=== PATIENT | female | born 1950 | race Caucasian/White ===

== ENCOUNTER 2016-07-18 17:35 | Emergency (ER) | payer MEDICARE, OTHER ==
[2013-09-22 12:49] VITALS: BMI 36.2
[~2016-07-18 17:35] MED LIST: ELAVIL10 MG; FLEXERIL10 MG PO; FOSAMAX 70 MG T70 MG PO; HCTZ25 MG; MOBIC7.5 MG; MOBIC7.5 MG PO; NEURONTIN 300300 MG; PRILOSEC20 MG PO; ROBAXIN500 MG; SYNTHROID75 MCG; TOPROL XL100 MG PO
[2016-07-18 19:21] LABS: BASOPHILS 0.2 % (0.0-2.0); EOSINOPHILS 0.7 % (0-7); HEMOGLOBIN 12.5 g/dL (12-16); IMMATURE GRANULOCYTES 0.2 % (0-5); LYMPHOCYTES 24.6 % (15-50); MCH 30.9 pg (26.0-34.0); MCHC 33.8 g/dL (31.0-37.0); MCV 91.6 fL (80.0-100.0); MEAN PLATELET VOLUME 10.4 fL (7.4-10.4); MONOCYTES 7.6 % (2-11); NEUTROPHILS 66.7 % (40-80); PLATELET COUNT 188 10x3/uL (130-400); RBC 4.04 10x6/uL (4.00-5.40); RDW 13.9 % (11.5-14.5); WBC 5.4 10x3/uL (4.8-10.8)
[2016-07-18 19:41] LABS: ALBUMIN 4.1 g/dL (3.4-5.0); ALKALINE PHOSPHATASE 59 U/L (46-116); ALT (SGPT) 83 U/L (10-68); BILIRUBIN - TOTAL 0.25 mg/dL (0.2-1.3); CALC OSMOLALITY 269 mosm/kg (275-300); CALCIUM 7.7 mg/dL (8.5-10.1); CARBON DIOXIDE 27.6 mmol/L (21.0-32.0); CHLORIDE - SERUM 99 mmol/L (98-107); CREATININE - SERUM 0.8 mg/dL (0.6-1.3); GLUCOSE 87 mg/dL (74-106); MAGNESIUM - SERUM 1.9 mg/dL (1.8-2.4); POTASSIUM - SERUM 3.7 mmol/L (3.5-5.1); PROTEIN - SERUM 7.3 g/dL (6.4-8.2); SODIUM 136 mmol/L (136-145); UREA NITROGEN 10 mg/dL (7-18); eGFR NON AFRICAN AMERICAN 76 mL/min (90-120)
[2016-07-18 20:17] LABS: UDS - AMPHET NEGATIVE QUAL (NEGATIVE); UDS - BARB NEGATIVE QUAL (NEGATIVE); UDS - BENZO NEGATIVE QUAL (NEGATIVE); UDS - COCAINE NEGATIVE QUAL (NEGATIVE); UDS - METH NEGATIVE QUAL (NEGATIVE); UDS - OPIATE NEGATIVE QUAL (NEGATIVE); UDS - PCP NEGATIVE QUAL (NEGATIVE); UDS - THC NEGATIVE QUAL (NEGATIVE)
== END 2016-07-18 20:57 | disposition home or self-care (01) ==
LOC: D.ER 17:35
PROVIDERS: Emergency Medicine
DX: F10.129 Alcohol abuse with intoxication, unspecified (principal); F41.9 Anxiety disorder, unspecified; F17.200 Nicotine dependence, unspecified, uncomplicated

== ENCOUNTER 2016-08-11 14:47 | Emergency (ER) | payer MEDICARE, OTHER ==
[2013-09-22 12:49] VITALS: BMI 36.2
== END 2016-08-11 17:01 | disposition home or self-care (01) ==
LOC: D.ER 14:47
DX: S61.012A Laceration without foreign body of left thumb without damage to nail, initial encounter (principal); W25.XXXA Contact with sharp glass, initial encounter; Y93.89 Activity, other specified; Y92.019 Unspecified place in single-family (private) house as the place of occurrence of the external cause; I10 Essential (primary) hypertension; E03.9 Hypothyroidism, unspecified

== ENCOUNTER 2016-09-17 19:23 | Emergency (ER) | payer MEDICARE, OTHER ==
[2013-09-22 12:49] VITALS: BMI 36.2
[2016-09-17 20:06] LABS: BASOPHILS 0.2 % (0.0-2.0); EOSINOPHILS 1.1 % (0-7); HEMATOCRIT 40.4 % (36.0-48.0); HEMOGLOBIN 13.3 g/dL (12-16); IMMATURE GRANULOCYTES 0.3 % (0-5); LYMPHOCYTES 22.1 % (15-50); MCH 30.8 pg (26.0-34.0); MCHC 32.9 g/dL (31.0-37.0); MCV 93.5 fL (80.0-100.0); MEAN PLATELET VOLUME 10.3 fL (7.4-10.4); MONOCYTES 4.3 % (2-11); PLATELET COUNT 201 10x3/uL (130-400); RBC 4.32 10x6/uL (4.00-5.40); RDW 14.9 % (11.5-14.5); WBC 6.5 10x3/uL (4.8-10.8)
[2016-09-17 20:42] LABS: ALBUMIN 4.3 g/dL (3.4-5.0); ALKALINE PHOSPHATASE 65 U/L (46-116); ALT (SGPT) 51 U/L (10-68); BILIRUBIN - TOTAL 0.33 mg/dL (0.2-1.3); CALC OSMOLALITY 278 mosm/kg (275-300); CALCIUM 9.5 mg/dL (8.5-10.1); CARBON DIOXIDE 24.4 mmol/L (21.0-32.0); CHLORIDE - SERUM 101 mmol/L (98-107); CREATININE - SERUM 0.7 mg/dL (0.6-1.3); GLUCOSE 92 mg/dL (74-106); POTASSIUM - SERUM 3.7 mmol/L (3.5-5.1); PROTEIN - SERUM 7.9 g/dL (6.4-8.2); SODIUM 139 mmol/L (136-145); UREA NITROGEN 16 mg/dL (7-18); eGFR NON AFRICAN AMERICAN 89 mL/min (90-120)
[2016-09-17 20:47] LABS: TROPONIN-I 0.042 ng/mL (0.000-0.060)
== END 2016-09-17 22:06 | disposition home or self-care (01) ==
LOC: D.ER 19:23
PROVIDERS: Surgery
DX: T40.2X5A Adverse effect of other opioids, initial encounter (principal); Y92.019 Unspecified place in single-family (private) house as the place of occurrence of the external cause; F41.9 Anxiety disorder, unspecified; I10 Essential (primary) hypertension; E03.9 Hypothyroidism, unspecified; F32.9 Major depressive disorder, single episode, unspecified; M79.7 Fibromyalgia; F43.10 Post-traumatic stress disorder, unspecified; F17.200 Nicotine dependence, unspecified, uncomplicated

== ENCOUNTER → 2016-10-13 10:48 | Outpatient (CLI) | payer MEDICARE, OTHER ==
[2013-09-22 12:49] VITALS: BMI 36.2
[2016-10-13 11:57] LABS: APPEARANCE HAZY (CLEAR); BILIRUBIN NEGATIVE (NEGATIVE); COLOR YELLOW (YELLOW); GLUCOSE NEGATIVE (NEGATIVE); KETONE NEGATIVE (NEGATIVE); LEUKOCYTE ESTERASE 1+ (NEGATIVE); NITRITE NEGATIVE (NEGATIVE); PROTEIN 1+ mg/dL (NEGATIVE); UROBILINOGEN NORMAL (NORMAL)
[2016-10-13 12:00] LABS: BACTERIA FEW /hpf (NONE SEEN); EPITHELIAL CELLS 0-5 /hpf (0-5); RED CELLS - URINE >50 /hpf (0-5); WHITE CELLS - URINE 25-50 /hpf (0-5)
[2016-10-13 12:01] LABS: MUCUS <1+ /lpf (NONE SEEN)
== END | disposition home or self-care (01) ==
LOC: D.LABREF 10:48
PROVIDERS: Internal Medicine
DX: I10 Essential (primary) hypertension (principal)

== ENCOUNTER 2016-10-13 16:51 | Emergency (ER) | payer MEDICARE, OTHER ==
[2013-09-22 12:49] VITALS: BMI 36.2
== END 2016-10-13 17:20 | disposition left against medical advice (07) ==
LOC: D.ER 16:51
DX: Z02.9 Encounter for administrative examinations, unspecified (principal)

== ENCOUNTER → 2016-11-06 13:23 | Outpatient (CLI) | payer MEDICARE, OTHER ==
[2013-09-22 12:49] VITALS: BMI 36.2
== END | disposition home or self-care (01) ==
LOC: D.CT 13:23
DX: I62.9 Nontraumatic intracranial hemorrhage, unspecified (principal)

== ENCOUNTER → 2017-06-21 10:09 | Outpatient (CLI) | payer MEDICARE, OTHER ==
[2013-09-22 12:49] VITALS: BMI 36.2
[~2017-06-21 10:09] MED LIST changes: +ACETAMINOPHEN500 M1 PO; +ALENDRONATE SOD70 MG PO; +BENADRYL25 MG PO; +COLACE100 MG PO; +DULERA 100 MCG8.8 GM INH; +ELIQUIS2.5 MG PO; +GEMFIBROZIL600 MG PO; -HCTZ25 MG; +HCTZ25 MG PO; +KEFLEX500 MG PO; +LISINOPRIL5 MG PO; +MELATONIN10 M1 PO; +OMEGA 3 FISH OI1 CAP PO; +OXYCODONE HCL5 MG PO; +SYNTHROID175 MCG PO; -SYNTHROID75 MCG; -TOPROL XL100 MG PO; +TOPROL XL50 MG PO; +VALIUM 2 MG TAB2 MG PO; +VITAMIN D250000 UNIT PO; +ZYPREXA5 MG PO
[2017-07-03 16:43] VITALS: BMI 34.4
== END | disposition home or self-care (01) ==
LOC: D.LABREF 10:09
DX: M17.11 Unilateral primary osteoarthritis, right knee (principal); Z11.8 Encounter for screening for other infectious and parasitic diseases

== ENCOUNTER 2017-06-27 10:00 | Inpatient (IN) | payer MEDICARE, OTHER ==
[~2017-06-27] VITALS: Ht 157.5 cm; Wt 85.5 kg
--- NOTE | ~2017-06-27 | OP ---
PATIENT NAME: SHERIDAN VILLATORO MEDICAL RECORD: [id number] :50 LOCATION: D.2230 ADMISSION DATE:07/03/17 SURGEON: OH ERWIN DO DATE OF OPERATION: 07/03/2017 PROCEDURE PERFORMED: Right total knee arthroplasty. PREOPERATIVE DIAGNOSIS: Right knee osteoarthritis. POSTOPERATIVE DIAGNOSIS: Right knee osteoarthritis. INDICATIONS: Ms. Ubaldo Hinojosa is a 67-year-old female who has dealt with knee arthritis for quite some time. She has had injections that have not helped and she is finally to the point where she wanted a total knee done. She was tired of it affecting her activities of daily living and said she was ready to have a total knee and she was consented aware of the risks and benefits of the procedure and then had scheduled surgery for today. DESCRIPTION OF PROCEDURE: The patient received a block in the preoperative area by anesthesia. She was taken to the operative suite, laid in the supine position, given general anesthetic and intubated. She was given vancomycin prior to the procedure due to a positive MRSA swab. After this was done, the right lower extremity was identified, prepped and draped in sterile fashion. A timeout was performed; everybody was in agreement with the timeout. The incision was then marked out in the midline of the knee and Ioban was placed over the knee. The leg was then exsanguinated with an Esmarch and the tourniquet was inflated to 350 mmHg and it was up for 47 minutes in total. Once the tourniquet was up, the Esmarch was removed. Knee was flexed at 90 degrees. Incision was made down to the capsule through the skin. A new knife was used for the capsulotomy. A medial parapatellar approach was used. The patella was exposed and then milled down in order to make room for the implant. After this was done, the femur was flexed up. Osteophytes were removed off the medial side of the femur and an intramedullary guide was placed in the femur. Then, the distal femur was cut. After the distal femur was cut, attention was drawn to the tibia. Some of the tibia was removed off the guide and going off the medial side, which was quite worn down and menisci were taken out after that and any of the soft tissue that was in the way. Extension block was not able to fit and medial release was done. This was not adequate and more tibia was removed until we could get the extension block in. Once the extension block was in, the PCL was pie-crusted and slightly partially released. After this was done, the femur was measured to be a 60 and a 4-in-1 block was used to cut the femur. After the femur was cut, the trial was put into place and then the tibial tray was floated and ranged and rotation was then marked. The drill holes were then made for the femoral implant and the tibia was prepped and sized to be 63 tray. After this was done, the tibia was prepped for the implant. The patella was drilled for 3 holes for the implant. Then, the tibia was irrigated, the cement was mixed and it was placed in the tibia and then on the implant, the tibia was put into place, impacted and excess cement was removed from around the tibial tray. The femur was then put in, a 12 poly was put in between them and the patella was put on and screws were put on. The tourniquet was let down at that time and any bleeders were coagulated. After this was done, we then began sizing and sized up to an 18 deep-dish poly. It was anterior stabilized. She does have good stability, medial and lateral and then the knee was irrigated. The tibial tray locking mechanism was put in and after irrigation, Martin was put in the knee capsule. The capsule was then closed with #1 Vicryl in a [id number] OPERATIVE REPORT [id number] SHERIDAN VILLATORO fashion and then the counter on top of the capsule, more Martin was placed and the skin was closed with 2-0 Vicryl in an inverted interrupted fashion and a ZipLine was placed on the knee. Adaptic, 4 x 4, ABD, Webril and Kameron wrap were then placed over the knee, and ANITA hose stockings placed up to the knee. The patient was then awakened and taken to the recovery in stable condition. Blood loss was approximately 150 mL. Complications were none. TRANSINT:[id number] Voice Confirmation ID: [id number] DOCUMENT ID: [id number] OH ERWIN DO at 1547 CC: [id number] DICTATION DATE: 07/03/17 1347 REGISTERED NURSE SUPERVISOR: 07/03/17 1545 ADM IN [facility] [address] [place] [address]
--- NOTE | ~2017-06-27 | CN ---
PATIENT NAME:SHERIDAN VILLATORO MEDICAL RECORD: [id number] : 50 LOCATION:D.MS Vazquez2230 ADMIT DATE: 07/03/17 ACCOUNT: [id number] CONSULTING PHYSICIAN: YESICA RUIZ DO REFERRING PHYSICIAN: OH ERWIN DO DATE OF CONSULTATION: 07/03/2017 HISTORY OF PRESENT ILLNESS: A 67-year-old female, admitted for knee replacement to Dr. Erwin, consult for medical management. PAST MEDICAL HISTORY: Significant for degenerative joint disease, hypertension, hyperlipidemia, depression, GERD, COPD, hypothyroid, vitamin D deficiency, osteoporosis. CURRENT MEDICATIONS: Fosamax weekly, vitamin D 50,000 units weekly, levothyroxine 175 mcg daily, omeprazole 20 mg daily, Colace 100 mg daily, hydrochlorothiazide 25 mg daily, Zyprexa 5 mg at bedtime, gemfibrozil 600 mg b.i.d., metoprolol XL 50 mg daily. ALLERGIES: FLU VACCINE, SUMATRIPTAN, SULFA DRUGS, MORPHINE, AND CODEINE. REVIEW OF SYSTEMS: GENERAL: No acute change in weight or appetite. HEENT: No cephalgia, visual changes, tinnitus, epistaxis, or dysphagia. CARDIOVASCULAR: Denies chest pain, denies palpitations. PULMONARY: Denies hemoptysis. Does admit postop shortness of breath, history of chronic obstructive pulmonary disease. GASTROINTESTINAL: Denies hematemesis, hematochezia, or melena. GENITOURINARY: Denies dysuria. MUSCULOSKELETAL: Status post total right knee. PHYSICAL EXAMINATION: VITAL SIGNS: Temperature 97.3, blood pressure 136/79, heart rate 63, respirations 16, O2 sat 95% room air. GENERAL: Alert and oriented, no present distress. Pain presently well controlled. HEENT: Normocephalic, atraumatic. Eyes: Pupils are equally round and reactive. Ears: Canals patent. TMs are intact. Nose: Nares patent without drainage. Throat: No erythema, no exudates. NECK: Supple. No lymphadenopathy, no JVD. HEART: Regular rate and rhythm. No S3, S4. No rub. LUNGS: Clear to auscultation bilaterally. Breathing is nonlabored. ABDOMEN: Soft, nontender. Bowel sounds all 4 quadrants. EXTREMITIES: Present times 4. Postop swelling within normal limits. NEUROLOGIC: No focal deficits. SKIN: Warm and dry. No rash. ASSESSMENT AND PLAN: 1. Status post right total knee. Continue ortho pathway. 2. Hypertension. Continue medications. 3. Hypothyroid. Continue medications. 4. Hypertriglyceridemia. Continue gemfibrozil. 5. Chronic obstructive pulmonary disease, mild shortness of breath postop, Rose p.r.n., supportive care. CONSULT REPORT [id number] SHERIDAN VILLATORO I appreciate this consult. We will follow accordingly. TRANSINT:[id number] Voice Confirmation ID: [id number] DOCUMENT ID: [id number] YESICA RUIZ DO at 0757 CC: [id number] DICTATION DATE: 07/03/171749 SUGAR REPROCESS OPERATOR HEAD: 07/03/17 1842 ADM IN [facility] [address] [place] [address]
[2017-06-27 09:22] LABS: BASOPHILS 0.5 % (0-2); EOSINOPHILS 1.2 % (0-7); HEMATOCRIT 38.3 % (36.0-48.0); HEMOGLOBIN 12.7 g/dL (12-16); LYMPHOCYTES 31.4 % (15-50); MCH 31.9 pg (26.0-34.0); MCHC 33.2 g/dL (31.0-37.0); MCV 96.2 fL (80.0-100.0); MEAN PLATELET VOLUME 9.5 fL (7.4-10.4); MONOCYTES 9.3 % (2-11); NEUTROPHILS 57.6 % (40-80); RBC 3.98 10x6/uL (4.00-5.40); RDW 13.1 % (11.5-14.5); WBC 4.3 10x3/uL (4.8-10.8)
[2017-06-27 09:24] LABS: PLATELET COUNT 256 10x3/uL (130-400)
[2017-06-27 09:34] LABS: APTT 29.4 SECONDS (22.8-39.4); INR 0.99 (0.85-1.17); PROTIME 12.6 SECONDS (11.6-15.0)
[2017-06-27 09:39] LABS: ALBUMIN 4.2 g/dL (3.4-5.0); ANION GAP 12.5 mmol/L (8-16); BILIRUBIN - TOTAL 0.31 mg/dL (0.2-1.3); CALCIUM 9.8 mg/dL (8.5-10.1); CARBON DIOXIDE 30.3 mmol/L (21.0-32.0); CREATININE - SERUM 1.1 mg/dL (0.6-1.3); POTASSIUM - SERUM 3.8 mmol/L (3.5-5.1); PROTEIN - SERUM 8.1 g/dL (6.4-8.2)
[2017-06-27 09:50] LABS: APPEARANCE CLEAR (CLEAR); BILIRUBIN NEGATIVE (NEGATIVE); COLOR YELLOW (YELLOW); GLUCOSE NEGATIVE (NEGATIVE); KETONE NEGATIVE (NEGATIVE); NITRITE NEGATIVE (NEGATIVE); PROTEIN NEGATIVE (NEGATIVE); UROBILINOGEN NORMAL (NORMAL)
[2017-06-27 09:51] LABS: BACTERIA MANY /hpf (NONE SEEN); EPITHELIAL CELLS 0-5 /hpf (0-5); MUCUS <1+ /lpf (NONE SEEN); RED CELLS - URINE NONE SEEN /hpf (0-5); YEAST NONE SEEN /hpf (NONE SEEN)
[2017-06-27 09:52] LABS: HYALINE CAST 0-5 /lpf (NONE SEEN)
[~2017-06-27 10:00] MED LIST changes: -ELIQUIS2.5 MG PO; -GEMFIBROZIL600 MG PO; -KEFLEX500 MG PO; -OXYCODONE HCL5 MG PO; -VALIUM 2 MG TAB2 MG PO
[2017-07-03] MEDS ORDERED: GEMFIBROZIL600 MG PO (09:50)
[2017-07-03 10:20] VITALS: BP 154/87; BMI 34.4
[2017-07-03 14:40] VITALS: BP 136/79
[2017-07-03 16:43] VITALS: BP 136/79; Ht 157.5 cm; Wt 85.5 kg
[2017-07-03 20:24] VITALS: BP 124/77
[2017-07-03 23:39] VITALS: BP 117/63
[2017-07-04 04:33] VITALS: BP 136/74
[2017-07-04 04:57] LABS: BASOPHILS 0 % (0-2); EOSINOPHILS 0 % (0-7); HEMATOCRIT 33.4 % (36.0-48.0); HEMOGLOBIN 10.9 g/dL (12-16); IMMATURE GRANULOCYTES 0.2 % (0-5); LYMPHOCYTES 17.1 % (15-50); MCH 31.2 pg (26.0-34.0); MCHC 32.6 g/dL (31.0-37.0); MCV 95.7 fL (80.0-100.0); MONOCYTES 9.1 % (2-11); NEUTROPHILS 73.6 % (40-80); PLATELET COUNT 248 10x3/uL (130-400); RBC 3.49 10x6/uL (4.00-5.40); WBC 6.2 10x3/uL (4.8-10.8)
[2017-07-04 05:06] LABS: ANION GAP 13.8 mmol/L (8-16); CALCIUM 8.8 mg/dL (8.5-10.1); CARBON DIOXIDE 26.1 mmol/L (21.0-32.0); CREATININE - SERUM 0.9 mg/dL (0.6-1.3); POTASSIUM - SERUM 3.9 mmol/L (3.5-5.1)
[2017-07-04 07:54] VITALS: BP 155/84
[2017-07-04 11:38] VITALS: BP 132/67
[2017-07-04 15:55] VITALS: BP 139/75
[2017-07-04 22:12] VITALS: BP 151/74
[2017-07-05 01:32] VITALS: BP 146/69
[2017-07-05 04:21] LABS: HEMATOCRIT 34.2 % (36.0-48.0); HEMOGLOBIN 11.3 g/dL (12-16); MCH 31.3 pg (26.0-34.0); MCV 94.7 fL (80.0-100.0); RBC 3.61 10x6/uL (4.00-5.40); RDW 12.9 % (11.5-14.5); WBC 7.2 10x3/uL (4.8-10.8)
[2017-07-05 06:33] VITALS: BP 146/77
[2017-07-05 09:20] VITALS: BP 138/80
[2017-07-05 12:20] VITALS: BP 116/81
[2017-07-05 16:34] VITALS: BP 151/67
[2017-07-05 20:54] VITALS: BP 115/81
[2017-07-06 00:53] VITALS: BP 125/80
[2017-07-06 04:46] VITALS: BP 131/80
[2017-07-06 08:45] VITALS: BP 138/80
[2017-07-06 12:32] VITALS: BP 130/70
[2017-07-06] MEDS ORDERED: ELIQUIS2.5 MG PO (14:06)
[2017-07-06] MEDS ORDERED: OXYCODONE HCL5 MG PO (14:06)
[2017-07-06] MEDS ORDERED: VALIUM 2 MG TAB2 MG PO (14:07)
[2017-07-06] MEDS ORDERED: KEFLEX500 MG PO (14:08)
== END 2017-07-06 16:12 | disposition home health service (06) | DRG 470 ==
LOC: D.SDCHOLD 07-03 05:18 → D.MS 07-03 05:18 → D.SDCHOLD 07-03 08:30 → D.MS 07-03 14:10
PROVIDERS: Anesthesiology; Family Medicine; Orthopaedic Surgery
PROC: 0SRC0J9 Replacement of Right Knee Joint with Synthetic Substitute, Cemented, Open Approach (ICD-10-PCS; principal; 2017-07-03 11:30)
DX: M17.11 Unilateral primary osteoarthritis, right knee (principal); I10 Essential (primary) hypertension; E78.5 Hyperlipidemia, unspecified; K21.9 Gastro-esophageal reflux disease without esophagitis; J44.9 Chronic obstructive pulmonary disease, unspecified; E03.9 Hypothyroidism, unspecified; M81.0 Age-related osteoporosis without current pathological fracture; M25.761 Osteophyte, right knee; M62.838 Other muscle spasm; Z87.891 Personal history of nicotine dependence

== ENCOUNTER 2018-01-10 10:43 | Emergency (ER) | payer MEDICARE, OTHER ==
[~2018-01-10] VITALS: Ht 157.5 cm; Wt 85.0 kg
[~2018-01-10 10:43] MED LIST changes: +ELIQUIS2.5 MG PO; +GEMFIBROZIL600 MG PO; +KEFLEX500 MG PO; +OXYCODONE HCL5 MG PO; +VALIUM 2 MG TAB2 MG PO
[2018-01-10 10:50] VITALS: Ht 157.5 cm; Wt 85.0 kg
[2018-01-10 11:25] LABS: BASOPHILS 0.3 % (0-2); EOSINOPHILS 1.3 % (0-7); HEMATOCRIT 35.3 % (36.0-48.0); HEMOGLOBIN 12.1 g/dL (12-16); LYMPHOCYTES 40.3 % (15-50); MCH 31.7 pg (26.0-34.0); MCHC 34.3 g/dL (31.0-37.0); MCV 92.4 fL (80.0-100.0); MEAN PLATELET VOLUME 9.4 fL (7.4-10.4); MONOCYTES 7.8 % (2-11); NEUTROPHILS 50.3 % (40-80); PLATELET COUNT 254 10x3/uL (130-400); RBC 3.82 10x6/uL (4.00-5.40); RDW 14.1 % (11.5-14.5); WBC 3.9 10x3/uL (4.8-10.8)
[2018-01-10 11:45] LABS: ALBUMIN 3.8 g/dL (3.4-5.0); ALKALINE PHOSPHATASE 81 U/L (46-116); ALT (SGPT) 18 U/L (10-68); BILIRUBIN - TOTAL 0.42 mg/dL (0.2-1.3); CALC OSMOLALITY 278 mosm/kg (275-300); CALCIUM 9.2 mg/dL (8.5-10.1); CARBON DIOXIDE 27.5 mmol/L (21.0-32.0); CHLORIDE - SERUM 100 mmol/L (98-107); CREATININE - SERUM 0.9 mg/dL (0.6-1.3); GLUCOSE 114 mg/dL (74-106); POTASSIUM - SERUM 3.9 mmol/L (3.5-5.1); PROTEIN - SERUM 7.7 g/dL (6.4-8.2); SODIUM 137 mmol/L (136-145); UREA NITROGEN 23 mg/dL (7-18); eGFR NON AFRICAN AMERICAN 66 mL/min (90-120)
[2018-01-10 11:55] LABS: CKMB 0.7 U/L (0.0-3.6); CREATINE KINASE 50 UL (21-215); MAGNESIUM - SERUM 1.8 mg/dL (1.8-2.4)
[2018-01-10 12:07] LABS: TROPONIN-I < 0.017 ng/mL (0.000-0.060)
[2018-01-10 18:12] VITALS: BP 117/71
== END 2018-01-10 18:08 | disposition home or self-care (01) ==
LOC: D.ER 10:43
PROVIDERS: Family Medicine
DX: R07.9 Chest pain, unspecified (principal); Z86.73 Personal history of transient ischemic attack (TIA), and cerebral infarction without residual deficits; I10 Essential (primary) hypertension; I50.9 Heart failure, unspecified

== ENCOUNTER 2018-01-16 07:59 | Outpatient (CLI) | payer MEDICARE, OTHER ==
[~2018-01-16] VITALS: Ht 157.5 cm; Wt 85.0 kg
--- NOTE | ~2018-01-16 | DS ---
PATIENT:SHERIDAN VILLATORO :50 MEDICAL RECORD: [id number] DISCHARGE SUMMARY ADMISSION DATE: 01/16/18 DISCHARGE DATE: 01/17/18 DATE OF DISCHARGE: 01/17/2018 DIAGNOSES: 1. Angina. 2. Coronary artery disease. 3. Percutaneous transluminal coronary angioplasty stent of left anterior descending and right coronary artery this admission. HOSPITAL COURSE: Mrs. Conner presents with anginal symptomatology, found to have 2-vessel coronary artery disease, underwent successful PTCA stent of the LAD and RCA, discharged home to follow up in 1 month with the addition of aspirin and Plavix to her medical regimen. TRANSINT:[id number] Voice Confirmation ID: [id number] DOCUMENT ID: [id number] SAVANA OBRIEN MD at 1713 CC: [id number] DICTATION DATE: 01/17/18 1212 TOWER DIRECTOR: 01/17/18 1226 DEP CLI 01/17/[address] [address]
--- NOTE | ~2018-01-16 | HEMODYNAMI ---
PATIENT:SHERIDAN VILLATORO MEDICAL RECORD: [id number] : 50 LOCATION:[facility] D.2[address] [facility] [id number] ADMISSION DATE: 01/16/18 Generatedon:01/17/201812:14 Patient name: SHERIDAN MONTES DE OCA Patient #: [id number] SSN : [id number] : 1950 Date of study: 01/17/2018 Page: Of Hemodynamic Procedure Report Patient Data Patient Demographics Procedure consent was obtained First Name: SHERIDAN Gender: Female Last Name: CHIKA MONTES DE OCA : 1950 Middle Initial: F Age: 67 year(s) Patient #: [id number] Race: SSN: [id number] Additional ID: [id number] Contact details Address: [address] [place] [address] State: [place] City: [place] Zip code: [address] Past Medical History Allergies Allergen Reaction Date Comments Reported Other allergy 01/16/2018 Flu Vaccine, Sumatriptan succinate, codeine. Admission Admission Data Admission Date: 01/16/2018 Admission Time: 7:59 Arrival Date: 01/17/2018 Arrival Time: 7:59 Admit Source: Other Insurance Payor: Medicare Room #: D.2115 Height (in.): 61.81 BSA: 1.86 (m2) Height (cm.): 157 BMI: 34.48 (kg/m2) Weight (lbs.): 187.39 Weight (kg.): 85 Lab Results Lab Result Date: 01/16/2018 Lab Result Time: 8:08 Biochemistry Name Units Result Min Max BUN mg/dl 14 --(--*-)-- 7 18 Creatinine mg/dl 0.8 --(-*--)-- 0.6 1.3 CBC Name Units Result Min Max Hematocrit % 35.4 *-(----)-- 42 54 Hemoglobin g/dl 12 *-(----)-- 13.5 17.5 Procedure Procedure Types Cath Procedure PCI Procedure Coronary Stent Coronary Stent Initial Procedure Description Procedure Date Procedure Date: 01/17/2018 Procedure Start Time: 12:03 Procedure End Time: 12:13 Procedure Staff Name Function Donta Jiang MD Performing Physician Heide Ann RT Scrub Jacob Stockton RN Nurse Neha Eason RT Monitor Procedure Data Cath Procedure Fluoroscopy Diagnostic fluoroscopy Total fluoroscopy Time: 1.3 time: 1.3 min min Diagnostic fluoroscopy Total fluoroscopy dose: 213 dose: 213 mGy mGy Contrast Material Contrast Material Type Amount (ml) Isovue 300 52 Entry Location Entry Primary Successful Side Size Upsize Upsize Entry Closure Succes sful Closure Location (Fr) 1 (Fr) 2 (Fr) Remarks Device Remarks Femoral Right 6 Fr Exoseal artery Short Estimated blood loss: 10 ml Procedure Complications No complications Procedure Medications Medication Administration Route Dosage Oxygen etCO2 Nasal cannula 2 l/min Lidocaine 2% added to field 20 Heparin Flush Bag added to field 2 bags (1000units/500ml NS) 0.9% NaCl I.V. 100 ml/hr Versed I.V. 1 mg Fentanyl I.V. 50 mcg Versed I.V. 1 mg Fentanyl I.V. 50 mcg Heparin Bolus I.V. 4000 units Fentanyl I.V. 50 mcg Hemodynamics Rest BSA: 1.86 (m2) HGB: 12 (g/dl) O2 Consumption: Estimated: 173.88 (ml/min) O2 Cons umption indexed: Estimated:93.48 (ml/min/m) Heart Rate: 72 (bpm) Snapshots Pre Cath Intra NCS Post Cath Vital Signs Time Heart Resp SPO2 etCO2 NIBP (mmHg) Rhythm Pain Sedation Rate (ipm) (%) (mmHg) Status Level (bpm) 11:39:54 79 25 98 0 139/101(120) NSR 0 (11) 10(A) , No pain 11:44:06 75 16 98 30 139/92(125) NSR 0 (11) 10(A) , No pain 11:48:18 73 17 98 10.5 133/90(110) NSR 0 (11) 10(A) , No pain 11:52:30 78 13 96 0.7 134/84(113) NSR 0 (11) 10(A) , No pain 11:56:42 70 13 95 0 134/82(112) NSR 0 (11) 10(A) , No pain 12:00:52 72 18 95 0 129/91(109) NSR 0 (11) 10(A) , No pain 12:05:02 70 14 97 33 128/86(111) NSR 0 (11) 9(A) , No pain 12:09:13 71 13 96 15 131/81(106) NSR 0 (11) 9(A) , No pain 12:12:03 71 13 96 34.5 134/80(108) NSR 0 (11) 10(A) , No pain Medications Time Medication Route Dose Verified Delivered Reason Notes Effectiveness by by 11:48:55 Oxygen etCO2 2 Donta Buffie used for Nasal l/min Deidre Stockton RN procedure cannula 11:49:03 Lidocaine 2% added 20ml Donta Donta for local to vial Deidre Jiang MD anesthetic field 11:49:10 Heparin Flush added 2 Donta Donta used for Bag to bags Deidre Jiang MD procedure (1000units/500ml field NS) 11:49:18 0.9% NaCl I.V. 100 Donta Buffie Per physician ml/hr Deidre Stockton RN 12:02:16 Versed I.V. 1 mg Donta Buffie for sedation Deidre Stockton RN 12:02:22 Fentanyl I.V. 50 Donta Buffie for sedation mcg Deidre Stockton RN 12:04:30 Versed I.V. 1 mg Donta Buffie for sedation Deidre Stockton RN 12:04:33 Fentanyl I.V. 50 Donta Buffie for sedation mcg Deidre Stockton RN 12:05:03 Heparin Bolus I.V. 4000 Donta Buffie for units Deidre Stockton RN anticoagulation 12:07:03 Fentanyl I.V. 50 Donta Buffie for sedation mcg Deidre Stockton RN Procedure Log Time Note 11:26:01 Diagnostic Cath Status : Elective 11:26:39 Neha Eason RT(R) sent for patient. Start room use. 11:26:40 Time tracking: Regular hours (M-F 7:00 - 5:00) 11:26:46 Plan of Care:Hemodynamics will remain stable., Cardiac rhythm will remain stable., Comfort level will be maintained., Respiratory function will remain adequate., Patient/ family verbilizes understanding of procedure., Procedure tolerated without complication., Recovers from procedure without complications.. 11:28:58 Informed consent obtained and on chart 11:30:05 Admit Source: Other 11:30:07 Arrival Date: 01/17/2018 7:59:00 AM 11:30:20 Insurance Payor : Medicare 11:30:29 Patient Weight : 187.39 lbs 11:30:36 Patient Height : 61.81 inches 11:33:06 Patient received from PCU to CCL 2 Alert and oriented. Tansferred to table in Supine position. 11:33:08 Warm blankets applied, and michael hugger turned on for patient comfort. 11:33:08 Correct patient and procedure confirmed by team. 11:33:09 ECG and BP/O2 sat monitors applied to patient. 11:38:58 Vital chart was started 11:38:59 Baseline sample Acquired. 11:39:07 Rhythm: sinus rhythm 11:39:09 Full Disclosure recording started 11:42:18 H&P Date Dictated: 01/17/2018 Within 30 days and on chart.. 11:42:20 Pre-procedure instructions explained to patient. 11:42:26 Is the patient allergic to Iodine/contrast media? No. 11:42:28 Was the patient premedicated? Yes 11:42:33 Is patient on blood thinner?Yes 11:42:37 ACC The patient was administered the following blood thiners within the last 24 hours: ACCPlavix 11:42:42 Patient diabetic? No. 11:42:49 Snore? Yes 11:42:53 Sleep apnea? No 11:42:55 Deviated septum? No 11:42:56 Opens mouth fully? Yes 11:42:57 Sticks out tongue? Yes 11:43:03 Airway obstruction? Yes Asthma 11:43:12 Patient pain scale 0/10 SOB. 11:43:19 IV patent on arrival in left hand with 0.9% NaCl at KVO. 11:43:24 Lab results completed and on chart. 11:43:29 Right groin area was prepped with chlora-prep and draped in sterile fashion 11:43:31 Alarms reviewed by R. N. 11:43:32 Sharps counted by scrub and verified by R.N. 11:44:45 Use device set Femoral Dx 11:48:55 Oxygen 2 l/min etCO2 Nasal cannula was administered by Buffie Stockton RN; used for procedure; 11:49:03 Lidocaine 2% 20ml vial added to field was administered by Donta Jiang MD; for local anesthetic; 11:49:10 Heparin Flush Bag (1000units/500ml NS) 2 bags added to field was administered by Donta Jiang MD; used for procedure; 11:49:18 0.9% NaCl 100 ml/hr I.V. was administered by Jacob Stockton RN; Per physician; 11:59:39 ACIST Syringe (08299) opened to sterile field. 11:59:40 Bag Decanter (2002) opened to sterile field. 11:59:41 Medline Cath Pack ([id number]) opened to sterile field. 11:59:42 DIAGNOSTIC WIRE .035 260cm J wire (135820) opened to sterile field. 11:59:44 ACIST Hand Control (50140) opened to sterile field. 11:59:45 ACIST Manifold (82966) opened to sterile field. 11:59:46 Tegaderm 4 x 4 (1626W) opened to sterile field. 11:59:50 PERCUTANEOUS ENTRY 19GA needle opened to sterile field. 11:59:54 SHEATH 6Fr Prelude ([id number]) opened to sterile field. 11:59:54 INFLATOR Merit BasixCompak (KE1519) opened to sterile field. 11:59:55 CHOICE PT Extra Support 182cm wire ([id number]) opened to sterile field. 12:00:19 Physician paged 12:01:32 Physician arrived 12:01:33 --------ALL STOP TIME OUT------ 12:01:34 Final Timeout: patient, procedure, and site verified with staff and physician. All members of the team are in agreement. 12:01:36 Right groin site verified by team. 12:01:43 Physical assessment completed. ASA score P 2 - A patient with mild systemic disease as per Donta Jiang MD. 12:01:47 Sedation plan: IV Moderate Sedation Medication:Versed, Fentanyl 12:02:16 Versed 1 mg I.V. was administered by Jacob Stockton RN; for sedation; 12:02:22 Fentanyl 50 mcg I.V. was administered by Jacob Stockton RN; for sedation; 12:02:59 Procedure started. 12:03:06 Local anesthetic to right femoral artery with Lidocaine 2% by Donta Jiang MD.INITIAL ACCESS ONLY 12:03:50 A 6 Fr Short sheath was inserted into the Right Femoral artery 12:04:10 GUIDE 6FR XB 3.5 catheter ([id number]) opened to sterile field. 12:04:30 Versed 1 mg I.V. was administered by Jacob Stockton RN; for sedation; 12:04:33 Fentanyl 50 mcg I.V. was administered by Jacob Stockton RN; for sedation; 12:04:50 6 Fr XB 3.5 guide catheter was inserted over the wire 12:05:03 Heparin Bolus 4000 units I.V. was administered by Jacob Stockton RN; for anticoagulation; 12:05:57 Choice pt ex wire advanced. 12:07:03 Fentanyl 50 mcg I.V. was administered by Jacob Stockton RN; for sedation; 12:07:26 Place stent Inflation Number: 1 A INTEGRITY RX 2.5 x 12 stent ([id number]) was prepped and advanced across the Mid LAD. The stent was deployed at 13 MARSHAL for 0:06 (min:sec). 12:07:36 Wire removed. 12:07:37 Guide catheter removed. 12:09:53 EXOSEAL 6Fr (EX600) opened to sterile field. 12:10:57 Sheath removed intact; hemostasis achieved with Exoseal to the Right Femoral artery. 12:11:00 Procedure ended.(Physican Out) 12:11:07 Fluoroscopy time 01.30 minutes. 12:11:11 Flurop Dose total: 213 12:11:11 Fluoroscopy dose: 213 mGy 12:11:19 Contrast amount:Isovue 300 52ml. 12:11:54 Insertion/operative site no bleeding no hematoma. 12:11:59 Post-op/insertion site Right Femoral artery dressed using a 4 x 4 and Tegaderm. 12:12:02 Post Procedure Pulses reassessed and unchanged 12:12:06 Post-procedure physical assessment completed. ASA score P 2 - A patient with mild systemic disease as per Donta Jiang MD. 12:12:09 Post procedure rhythm: unchanged. 12:12:13 Estimated blood loss: 10 ml 12:12:16 Post procedure instruction explained to patient.Patient verbalizes understanding. 12:12:34 Procedure type changed to Cath procedure, PCI procedure, Coronary Stent, Coronary Stent Initial 12:12:35 Procedure and supply charges have been captured, reviewed, submitted and are correct. 12:12:57 Procedure Complication : No complications 12:12:59 Vital chart was stopped 12:13:00 See physician's report for complete and final results. 12:13:02 Report given to Pre/Post Procedure Room. 12:13:05 Patient transfered to Pre/Post Procedure Room with Stretcher. 12:13:08 Procedure ended. 12:13:08 Full Disclosure recording stopped 12:13:11 End room use (Document Last) Intervention Summary Intervention Notes Time ActionType Lesion and Equipment Action# Pressure Duration Attributes Used 12:07:26 Place stent Mid LAD INTEGRITY RX 1 13 00:06 2.5 x 12 stent ([id number]) Device Usage Item Name Manufacture Quantity Catalog Number Hospital Part Current Mini mal Lot# / Charge Number Stock Stock Serial# Code ACIST Acist 1 25692 996751 773251 387900 20 Syringe Medical (56720) Systems Inc Bag Decanter Microtek 1 2001S 063447 32780 251948 5 () Medical Inc. Medline Cath Cardinal 1 [id number] 340997 89616 152913 5 Pack Health ([id number]) DIAGNOSTIC [facility] [place] 1 825578 308703 910081 208000 30 WIRE .035 260cm J wire (434108) ACIST Hand Acist 1 52373 107234 136251 423202 5 Control Medical (32723) Systems Inc ACIST Acist 1 57554 565421 382615 009301 5 Manifold Medical (54307) Systems Inc Tegaderm 4 x 3M 1 1626W 161085 718666 563819 5 4 (1626W) PERCUTANEOUS Cook Medical 1 Z36483 218456 903355 5 ENTRY 19GA needle SHEATH 6Fr Merit 1 [id number] 890853 510055 326816 5 Prelude Medical ([id number]) INFLATOR Merit 1 UH1467 466249 408339 588258 15 Picfair Medical BasixCompak (GR9327) CHOICE PT [place] 1 [id number] 708621 630257 817661 5 Extra Scientific Support 182cm wire ([id number]) GUIDE 6FR XB Cardinal 1 [id number] 282357 276150 209249 2 3.5 catheter [employer] (01792501) INTEGRITY RX Medtronic 1 [id number] 400024 321501 332782 5 [id number] 2.5 x 12 stent ([id number]) EXOSEAL 6Fr Cardinal 1 EX600 697530 454038 614366 10 (EX600) Health Signature Audit [place] Stage Time Signature Unsigned Intra-Procedure 01/17/2018 Neha Eason 12:14:40 PM RT(R) Signatures Monitor : Neha Eason Signature : RT Date : Time : [id number] [place] [address]
--- NOTE | ~2018-01-16 | OP ---
PATIENT NAME: SHERIDAN VILLATORO MEDICAL RECORD: [id number] :50 LOCATION:D.CAT ADMISSION DATE: SURGEON: SAVANA OBRIEN MD DATE OF OPERATION: 01/16/2018 PROCEDURES: 1. PTCA and stent of RCA. 2. Intravascular ultrasound of RCA. 3. Left heart catheterization. 4. Selective coronary angiography. 5. Left ventriculogram. INDICATION: Angina and coronary artery disease. PROCEDURE PERFORMED: After informed consent was obtained and after detailed explanation of risks, benefits as well as alternative therapies, the patient elected to proceed with angiogram and angioplasty. The right radial area was prepped and draped in normal sterile fashion. Right radial artery was cannulated via modified Seldinger technique with placement of 6-Tajik sheath. All catheters exchanged through this sheath. FINDINGS: Left ventriculogram was performed in a standard 30-degree BOWLING view, reveals good cardiac wall motion throughout all segments. Overall ejection fraction estimated 55%. SELECTIVE CORONARY ANGIOGRAPHY: 1. Left main is with no significant angiographic disease. 2. Left anterior descending has 70% to 80% stenosis in the mid vessel. 3. Left circumflex has mild irregularities, but no flow-limiting stenosis. 4. Right coronary has 72% stenosis in the proximal vessel confirmed by intravascular ultrasound. PTCA AND STENT OF THE RCA: Stent used was a 4.0 x 15 mm Integrity. Result was 0% residual stenosis. OVERALL IMPRESSION: Successful PTCA and stent of the RCA going from 72% initial stenosis confirmed by intravascular ultrasound to 0% residual. PLAN: PTCA and stent of the LAD in the near future. TRANSINT:[id number] Voice Confirmation ID: [id number] DOCUMENT ID: [id number] SAVANA OBRIEN MD at 1713 CC: [id number] DICTATION DATE: 01/16/18 1112 KEY ATTENDANT: 01/16/18 1138 DEP CLI 01/17/[address] [address]
--- NOTE | ~2018-01-16 | HEMODYNAMI ---
PATIENT:SHERIDAN VILLATORO MEDICAL RECORD: [id number] : 50 LOCATION:D.CAT ADMISSION DATE: 01/16/18 Generatedon:01/16/201811:14 Patient name: SHERIDAN MONTES DE OCA Patient #: [id number] SSN : : 1950 Date of study: 01/16/2018 Page: Of Hemodynamic Procedure Report Patient Data Patient Demographics Procedure consent was obtained First Name: SHERIDAN Gender: Female Last Name: CHIKA MONTES DE OCA : 1950 [facility] Initial: F Age: 67 year(s) Patient #: [id number] Race: Unknown Additional ID: [id number] Contact details Address: [place] [address] State: [place] City: [place] Zip code: [address] Past Medical History Allergies Allergen Reaction Date Comments Reported Other allergy 01/16/2018 Flu Vaccine, Sumatriptan succinate, codeine. Admission Admission Data Admission Date: 01/16/2018 Admission Time: 7:59 Lab Results Lab Result Date: 01/16/2018 Lab Result Time: 8:08 Biochemistry Name Units Result Min Max BUN mg/dl 14 --(--*-)-- 7 18 Creatinine mg/dl 0.8 --(-*--)-- 0.6 1.3 CBC Name Units Result Min Max Hematocrit % 35.4 *-(----)-- 42 54 Hemoglobin g/dl 12 *-(----)-- 13.5 17.5 Procedure Procedure Types Cath Procedure Diagnostic Procedure LHC LHC w/Coronaries FFR/IVUS Intra-Coronary IVUS Initial Sedation Charges Moderate Sedation up to 15 minutes PCI Procedure Coronary Stent Coronary Stent Initial Procedure Description Procedure Date Procedure Date: 01/16/2018 Procedure Start Time: 10:58 Procedure End Time: 11:13 Procedure Staff Name Function Taj Luna RN Seafood Technology Specialist Tereso Garland RT Monitor Becca Mohan RT Scrub Trino Rodriguez RN Nurse Donta Jiang MD Performing Physician Procedure Data Cath Procedure Fluoroscopy Diagnostic fluoroscopy Total fluoroscopy Time: 3.6 time: 3.6 min min Diagnostic fluoroscopy Total fluoroscopy dose: 725 dose: 725 mGy mGy Contrast Material Contrast Material Type Amount (ml) Isovue 370 71 Entry Location Entry Primary Successful Side Size Upsize Upsize Entry Closure Horne ccessful Closure Location (Fr) 1 (Fr) 2 (Fr) Remarks Device Remarks Radial Right 6 Fr Mechanical artery Short Compression Estimated blood loss: 10 ml Diagnostic catheters Device Type Used For End Catheter Placement DIAGNOSTIC Slidell 110cm 5 Procedure Fr catheter ([id number]) Procedure Complications No complications Procedure Medications Medication Administration Route Dosage 0.9% NaCl I.V. 100 ml/hr Oxygen etCO2 Nasal cannula 2 l/min Heparin Flush Bag added to field 2 bags (1000units/500ml NS) Lidocaine 2% added to field 20 Radial Cocktail added to field 1 syringe (Verapomil 2mg/Nitro 400mcg/Heparin 1500units) Radial Cocktail I.A. 1 syringe (Verapomil 2mg/Nitro 400mcg/Heparin 1500units) Lopressor I.V. 5 mg Heparin Bolus I.V. 4000 units Lopressor I.V. 5 mg Hemodynamics Rest HGB: 12 (g/dl) Heart Rate: 101 (bpm) Pressure Samples Time Site Value (mmHg) Purpose Heart Use Rate(bpm) 11:00 LV 89/48,8 Snapshot 42 Snapshots Pre Cath Intra NCS Post Cath Vital Signs Time Heart Resp SPO2 etCO2 NIBP (mmHg) Rhythm Pain Sedation Rate (ipm) (%) (mmHg) Status Level (bpm) 10:48:02 114 13 96 28.6 150/98(129) NSR 0 (11) 10(A) , No pain 10:52:44 111 13 99 31.6 154/95(120) NSR 0 (11) 10(A) , No pain 10:57:27 116 15 98 32.3 150/84(113) NSR 0 (11) 10(A) , No pain 11:02:12 100 16 96 33.8 127/77(98) NSR 0 (11) 10(A) , No pain 11:06:50 118 15 96 34.6 128/74(110) NSR 0 (11) 9(A) , No pain 11:11:33 91 10 97 34.6 128/74(91) NSR 0 (11) 10(A) , No pain Medications Time Medication Route Dose Verified Delivered Reason Not es Effectiveness by by 10:47:41 0.9% NaCl I.V. 100 Trino Trino Per physician ml/hr Jennifer Rodriguez RN RN 10:47:52 Oxygen etCO2 2 l/min Trino Trino Per physician Nasal Jennifer Rodriguez cannula RN RN 10:48:03 Heparin Flush added 2 bags Trino Trino used for Bag to Jennifer Rodriguez procedure (1000units/500ml field RN RN NS) 10:48:13 Lidocaine 2% added 20ml Trino Trino for local to vial Lorigan Jennifer anesthetic field RN RN 10:48:24 Radial Cocktail added 1 Trino Trino used for (Verapomil to syringe Sherleyigan Jennifer procedure 2mg/Nitro field RN RN 400mcg/Heparin 1500units) 11:00:46 Radial Cocktail I.A. 1 Trino Donta used for (Verapomil syringe Jennifer Jiang MD procedure 2mg/Nitro RN 400mcg/Heparin 1500units) 11:01:06 Lopressor I.V. 5 mg Trino Trino for arrhythmia Jennifer Rodriguez RN RN 11:05:46 Heparin Bolus I.V. 4000 Trino Trino for units Jennifer Rodriguez anticoagulation RN RN 11:05:55 Lopressor I.V. 5 mg Trino Trino for arrhythmia Jennifer Rodriguez RN epoxy coatings installer Log Time Note 10:26:00 Taj Luna RN sent for patient. Start room use. 10:26:01 Time tracking: Regular hours (M-F 7:00 - 5:00) 10:26:04 Plan of Care:Hemodynamics will remain stable., Cardiac rhythm will remain stable., Comfort level will be maintained., Respiratory function will remain adequate., Patient/ family verbilizes understanding of procedure., Procedure tolerated without complication., Recovers from procedure without complications.. 10::47 Lab Result : BUN 14 mg/dl 10::47 Lab Result : Creatinine 0.8 mg/dl ::47 Lab Result : Hematocrit 35.4 % 10::47 Lab Result : Hemoglobin 12 g/dl 10:29:49 Lab results completed and on chart. 10:40:04 Patient received from ED to CCL 1 Alert and oriented. Tansferred to table in Supine position. 10:40:05 Warm blankets applied, and michael hugger turned on for patient comfort. 10:40:06 Correct patient and procedure confirmed by team. 10:40:07 Signed procedure consent form obtained from patient. 10:40:08 ECG and BP/O2 sat monitors applied to patient. 10:40:10 Pre-procedure instructions explained to patient. 10:40:11 Pre-op teaching completed and patient verbalized understanding. 10:47:03 Vital chart was started 10:47:41 0.9% NaCl 100 ml/hr I.V. was administered by Trino Rodriguez RN; Per physician; 10:47:52 Oxygen 2 l/min etCO2 Nasal cannula was administered by Trino Rodriguez RN; Per physician; 10:48:03 Heparin Flush Bag (1000units/500ml NS) 2 bags added to field was administered by Trino Rodriguez RN; used for procedure; 10:48:13 Lidocaine 2% 20ml vial added to field was administered by Trino Rodriguez RN; for local anesthetic; 10:48:24 Radial Cocktail (Verapomil 2mg/Nitro 400mcg/Heparin 1500units) 1 syringe added to field was administered by Trino Rodriguez RN; used for procedure; 10:51:48 Baseline sample Acquired. 10:52:03 Rhythm: sinus tachycardia 10:52:05 Full Disclosure recording started 10:52:09 H&P Date Dictated: 01/16/2018 New H&P dictated by physician.. 10:52:10 Family in waiting room. 10:52:13 Patient NPO since Midnight. 10:52:46 Patient allergic to Other allergyFlu Vaccine, Sumatriptan succinate, codeine. 10:52:48 Is the patient allergic to Iodine/contrast media? No. 10:52:49 Is patient on blood thinner?Yes 10:52:52 ACC The patient was administered the following blood thiners within the last 24 hours: ACCPlavix 10:52:53 Patient diabetic? No. 10:52:55 Previous problem with sedation/anesthesia? No ? 10:52:57 Snore? Yes 10:52:58 Sleep apnea? No 10:52:59 Deviated septum? No 10:53:00 Opens mouth fully? Yes 10:53:01 Sticks out tongue? Yes 10:53:04 Airway obstruction? Yes asthma 10:53:07 Dentures? No ? 10:53:09 Modified Anand's test Ulnar < 7 seconds 10:53:11 Patient pain scale 0/10 ?. 10:53:35 IV patent on arrival in left hand with 0.9% NaCl at O. 10:53:38 Right Radial & Right Groin area was prepped with chlora-prep and draped in sterile fashion 10:53:39 Alarms reviewed by R. N. 10:53:39 Sharps counted by scrub and verified by R.N. 10:53:43 Use device set Radial Dx or PCI 10:53:43 ACIST Syringe (69573) opened to sterile field. 10:53:44 Medline Cath Pack ([id number]) opened to sterile field. 10:53:44 Bag Decanter (2002S) opened to sterile field. 10:53:45 ACIST Hand Control (25798) opened to sterile field. 10:53:45 ACIST Manifold (14243) opened to sterile field. 10:53:46 Tegaderm 4 x 4 (1626W) opened to sterile field. 10:53:46 MBrace Wrist Support ([id number]) opened to sterile field. 10:53:48 DIAGNOSTIC WIRE .035 260cm J wire (867691) opened to sterile field. 10:53:51 SHEATH 6Fr Prelude Radial ([id number]) opened to sterile field. 10:54:01 Physician arrived 10:54:02 --------ALL STOP TIME OUT------ 10:54:02 Final Timeout: patient, procedure, and site verified with staff and physician. All members of the team are in agreement. 10:54:03 Right Radial & Right Groin site verified by team. 10:54:11 Physical assessment completed. ASA score P 2 - A patient with mild systemic disease as per Donta Jiang MD. 10:54:13 Sedation plan: IV Moderate Sedation Medication:Versed, Fentanyl 10:58:46 Procedure started. 10:58:50 Local anesthetic to right radial artery with Lidocaine 2% by Donta Jiang MD.INITIAL ACCESS ONLY 10:58:58 A 6 Fr Short sheath was inserted into the Right Radial artery 10:59:34 A DIAGNOSTIC Slidell 110cm 5 Fr catheter (432241) was advanced over the wire and used for Procedure. 11:00:42 LV gram done using BOWLING 11:00:45 Injector settings: Ml/sec: 5, Volume: 15, 11:00:46 Radial Cocktail (Verapomil 2mg/Nitro 400mcg/Heparin 1500units) 1 syringe I.A. was administered by Donta Jiang MD; used for procedure; 11:00:52 EF : 60 % 11:00:57 RCA angiography performed. 11:01:06 Lopressor 5 mg I.V. was administered by Trino Rodriguez RN; for arrhythmia; 11:02:01 INFLATOR Merit BasixCompak (IM0142) opened to sterile field. 11:02:08 LCA angiography performed. 11:03:[address] [place] Eagley[place] IVUS Catheter (79634F) opened to sterile field. 11:03:49 GUIDE 6FR AR 2.0 catheter ([id number]) opened to sterile field. 11:05:05 CHOICE PT Extra Support 182cm wire ([id number]) opened to sterile field. 11:05:11 Catheter removed. 11:05:17 6 Fr AR 2 guide catheter was inserted over the wire 11:05:23 CHOICE PT ES wire advanced. 11:05:24 Wire advanced across lesion. 11:05:46 Heparin Bolus 4000 units I.V. was administered by Trino Rodriguez RN; for anticoagulation; 11:05:55 Lopressor 5 mg I.V. was administered by Trino Rodriguez RN; for arrhythmia; 11:07:13 IVUS catheter advanced over wire. 11:07:15 IVUS pass to RCA lesion performed. 11:07:16 IVUS catheter removed over wire. 11:08:24 Place stent Inflation Number: 1 A INTEGRITY RX 4.0 x 15 stent ([id number]) was prepped and advanced across the Prox RCA. The stent was deployed at 17 MARSHAL for 0:10 (min:sec). 11:08:52 Stent catheter was removed intact over wire. 11:08:53 Wire removed. 11:08:54 Guide catheter removed. 11:09:00 TR BAND Standard ([id number]) opened to sterile field. 11:09:31 Sheath removed intact; hemostasis achieved with Mechanical Compression to the Right Radial artery. 11:09:34 Procedure ended.(Physican Out) 11:09:40 Fluoroscopy time 03.60 minutes. 11:09:45 Fluoroscopy dose: 725 mGy 11:09:45 Flurop Dose total: 725 11:09:49 Contrast amount:Isovue 370 71ml. 11:09:50 Sharps counted by scrub and verified by R.N. 11:09:52 TR band inflated with 12cc of air. 11:09:54 Insertion/operative site no bleeding no hematoma. 11:09:59 Post-procedure physical assessment completed. ASA score P 2 - A patient with mild systemic disease as per Donta Jiang MD. 11:10:01 Post procedure rhythm: unchanged. 11:10:03 Estimated blood loss: 10 ml 11:10:04 Post procedure instruction explained to patient.Patient verbalizes understanding. 11:10:05 Patient needs reinforcement of post procedure teaching. 11:10:20 Procedure type changed to Cath procedure, Diagnostic procedure, LHC, LHC w/Coronaries, FFR/IVUS, Intra-Coronary IVUS Initial, Sedation Charges, Moderate Sedation up to 15 minutes, PCI procedure, Coronary Stent, Coronary Stent Initial 11:11:32 Procedure and supply charges have been captured, reviewed, submitted and are correct. 11:13:03 Procedure Complication : No complications 11:13:05 Vital chart was stopped 11:13:05 See physician's report for complete and final results. 11:13:07 Report given to Pre/Post Procedure Room. 11:13:12 Patient transfered to Pre/Post Procedure Room with Stretcher. 11:13:14 Procedure ended. 11:13:14 Full Disclosure recording stopped 11:13:17 End room use (Document Last) Intervention Summary Intervention Notes Time ActionType Lesion and Equipment Action# Pressure Duration Attributes Used 11:08:24 Place stent Prox RCA INTEGRITY RX 1 17 00:10 4.0 x 15 stent ([id number]) Device Usage Item Name Manufacture Quantity Catalog Number Hospital Part Current M inimal Lot# / Charge Number Stock Stock Serial# Code ACIST Syringe Acist 1 24964 443847 217523 093424 2 0 (65022) Medical Systems Inc Medline Cath Cardinal 1 [id number] 011800 53685 138526 5 Pack Health ([id number]) Bag Decanter Microtek 1 681142 48085 885900 5 () Medical Inc. ACIST Hand Acist 1 01029 474176 808520 516498 5 Control (66883) Medical Systems Inc ACIST Manifold Acist 1 14847 748655 735906 478542 5 (82200) Medical Systems Inc Tegaderm 4 x 4 3M 1 1626W 728019 094289 323863 5 (1626W) MBrace Wrist Advanced 1 140-0250-00 052446 26225 753765 5 Support Vascular ([id number]) Dynamics DIAGNOSTIC WIRE [facility] [place] 1 633841 452830 613278 633060 3 0 .035 260cm J wire (935110) SHEATH 6Fr Merit 1 [id number] 502774 978518 507827 5 Prelude Radial Medical ([id number]) DIAGNOSTIC Terumo 1 40-2217 806083 917215 121467 5 Slidell 110cm 5 Fr catheter (781178) INFLATOR Merit Merit 1 [id number] 819886 409562 680101 1 5 OOTU (PE5179) Haxtun Haxtun [id number] 7038[address] [facility] Eagley[place] IVUS Catheter (91432I) GUIDE 6FR AR Medtronic 1 [id number] 759279 85866 260786 1 2.0 catheter ([id number]) CHOICE PT Extra Hazel 1 [id number] 941378 703280 783630 5 Support 182cm Scientific wire ([id number]) INTEGRITY RX Medtronic 1 [id number] 991516 767465 988161 5 [id number] 4.0 x 15 stent ([id number]) TR BAND Terumo 1 [id number] 604463 351744 178308 4 0 Standard ([id number]) Signature Audit [place] Stage Time Signature Unsigned Intra-Procedure 01/16/2018 Tereso Garland 11:14:01 AM RT(R) Signatures Monitor : Tereso Garland RT Signature : Date : Time : [facility] [address] [place] [address]
--- NOTE | ~2018-01-16 | OP ---
PATIENT NAME: SHERIDAN VILLATORO MEDICAL RECORD: [id number] :50 LOCATION:D.CAT ADMISSION DATE: SURGEON: SAVANA OBRIEN MD DATE OF OPERATION: 01/16/2018 PROCEDURES: 1. PTCA stent of LAD. 2. Selective coronary angiography. INDICATION: Angina and coronary artery disease. PROCEDURE IN DETAIL: After informed consent was obtained and after detailed explanation of risks, benefits as well as alternative therapies, the patient elected to proceed with angiogram and angioplasty. The right femoral area was prepped and draped in normal sterile fashion. Right femoral artery was cannulated via modified Seldinger technique with placement of 6-Chinese sheath. All catheters exchanged through this sheath. FINDINGS: The left anterior descending has 70% to 80% stenosis in the mid vessel. This was addressed with a 2.5 x 12 mm Integrity stent. Result was 0% residual stenosis. OVERALL IMPRESSION: Successful percutaneous transluminal coronary angioplasty stent of the left anterior descending going from 70% to 80% initial stenosis to 0% residual. TRANSINT:[id number] Voice Confirmation ID: [id number] DOCUMENT ID: [id number] SAVANA OBRIEN MD at 1713 CC: [id number] DICTATION DATE: 01/17/18 1211 [place] [place] [employer] GUIDE: 01/17/18 1221 DEP CLI 01/17/[address] [address]
[2018-01-16 08:59] LABS: BASOPHILS 0.4 % (0-2); EOSINOPHILS 0.8 % (0-7); HEMATOCRIT 35.4 % (36.0-48.0); IMMATURE GRANULOCYTES 0.6 % (0-5); MCH 31.3 pg (26.0-34.0); MCHC 33.9 g/dL (31.0-37.0); MCV 92.4 fL (80.0-100.0); MONOCYTES 5.3 % (2-11); NEUTROPHILS 72.9 % (40-80); PLATELET COUNT 252 10x3/uL (130-400); RBC 3.83 10x6/uL (4.00-5.40); RDW 13.8 % (11.5-14.5); WBC 5.3 10x3/uL (4.8-10.8)
[2018-01-16 09:08] LABS: ALBUMIN 3.6 g/dL (3.4-5.0); ALKALINE PHOSPHATASE 69 U/L (46-116); ALT (SGPT) 24 U/L (10-68); BILIRUBIN - TOTAL 0.39 mg/dL (0.2-1.3); CALC OSMOLALITY 265 mosm/kg (275-300); CALCIUM 8.9 mg/dL (8.5-10.1); CARBON DIOXIDE 28.7 mmol/L (21.0-32.0); CHLORIDE - SERUM 97 mmol/L (98-107); CREATININE - SERUM 0.8 mg/dL (0.6-1.3); GLUCOSE 90 mg/dL (74-106); PROTEIN - SERUM 7.4 g/dL (6.4-8.2); SODIUM 132 mmol/L (136-145); UREA NITROGEN 14 mg/dL (7-18); eGFR NON AFRICAN AMERICAN 76 mL/min (90-120)
[2018-01-16 09:16] LABS: CREATINE KINASE 56 UL (21-215); PRO BNP 827 pg/mL (0-125); THYROID STIMULATING HORMONE 1.29 uIU/mL (0.36-3.74)
[2018-01-16 09:18] LABS: TROPONIN-I < 0.017 ng/mL (0.000-0.060)
[2018-01-16 10:50] LABS: APPEARANCE CLEAR (CLEAR); BILIRUBIN NEGATIVE (NEGATIVE); COLOR STRAW (YELLOW); GLUCOSE NEGATIVE (NEGATIVE); KETONE NEGATIVE (NEGATIVE); NITRITE NEGATIVE (NEGATIVE); PROTEIN NEGATIVE (NEGATIVE); UROBILINOGEN NORMAL (NORMAL)
[2018-01-16 10:51] LABS: BACTERIA FEW /hpf (NONE SEEN); EPITHELIAL CELLS 0-5 /hpf (0-5); MUCUS <1+ /lpf (NONE SEEN); WHITE CELLS - URINE 0-5 /hpf (0-5)
[2018-01-16 11:55] VITALS: BP 133/77; Ht 157.5 cm; Wt 85.0 kg
[2018-01-16 12:02] VITALS: BP 133/77
[2018-01-16 16:12] VITALS: BP 115/62
[2018-01-16 20:06] VITALS: BP 115/65
[2018-01-17] VITALS: BP 112/69
[2018-01-17 04:00] VITALS: BP 126/77
[2018-01-17 07:46] VITALS: BP 126/78
[2018-01-17 11:43] VITALS: BP 132/89
[2018-01-17] MEDS ORDERED: PLAVIX75 MG PO (12:19)
== END 2018-01-17 16:22 | disposition home or self-care (01) ==
LOC: D.CATH 07:59 → D.ER 07:59 → D.M2 07:59 → D.CLR 07:59 → D.M2 11:13 → EDSTATUS 12:00 → D.CLR 01-17 13:00 → D.CATH 01-17 16:22
PROVIDERS: Emergency Medicine
DX: I25.10 Atherosclerotic heart disease of native coronary artery without angina pectoris (principal); I50.9 Heart failure, unspecified

== ENCOUNTER 2018-02-11 09:38 | Outpatient (CLI) | payer MEDICARE, OTHER ==
[~2018-02-11] VITALS: Ht 157.5 cm; Wt 85.0 kg
--- NOTE | ~2018-02-11 | OP ---
PATIENT NAME: SHERIDAN VILLATORO MEDICAL RECORD: [id number] :50 LOCATION:D.CAT ADMISSION DATE: SURGEON: SAVANA OBRIEN MD DATE OF OPERATION: 02/11/2018 PROCEDURES: 1. Left heart catheterization. 2. Selective coronary angiography. 3. Left ventriculogram. INDICATION: Angina, coronary artery disease, recent PTCA stent. PROCEDURE IN DETAIL: After informed consent was obtained and after a detailed description of the risks, benefits as well as alternative therapies, the patient elected to proceed with angiogram and heart catheterization. The right femoral area was prepped and draped in normal sterile fashion. The right femoral artery was cannulated via modified Seldinger technique with placement of 6-Greek sheath. All catheters exchanged through this sheath. FINDINGS: The left ventriculogram was performed in standard 30-degree BOWLING view, reveals global hypokinesis throughout all segments, LV dilatation, ejection fraction in the 30% range. SELECTIVE CORONARY ANGIOGRAPHY: 1. Left main is with no significant angiographic disease. 2. Left anterior descending has moderate irregularities, but no flow-limiting stenosis. 3. The left circumflex has moderate irregularities, but no flow-limiting stenosis. 4. The right coronary artery has previously placed stent, this is widely patent. No disease elsewise is significant throughout the RCA or its branches. OVERALL IMPRESSION: Wide patency of the previously placed stent in the RCA. Continue medical management of the cardiomyopathy. TRANSINT:[id number] Voice Confirmation ID: [id number] DOCUMENT ID: [id number] SAVANA OBRIEN MD at 1806 CC: [id number] DICTATION DATE: 02/11/18 1343 ELECTRICAL ELECTRONICS ENGINEER: 02/11/18 1352 DEP CLI 02/12/18 [place] [id number] [place] [id number]
--- NOTE | ~2018-02-11 | HP ---
PATIENT: SHERIDAN VILLATORO MEDICAL RECORD: [id number] ACCOUNT: [id number] LOCATION:CRISTINA : 50 ADMISSION DATE: 02/11/18 HISTORY AND PHYSICAL EXAMINATION ADMITTING DIAGNOSES: 1. Angina. 2. Coronary artery disease. 3. Previous PTCA stent. 4. Hypertension. 5. Hyperlipidemia. 6. Frequent PVCs. 7. Palpitations. 8. Shortness of breath, dyspnea on exertion. HISTORY OF PRESENT ILLNESS: Mrs. Ubaldo Hinojosa presents with anginal symptomatology that started this morning at 4:30 a.m. She does have a history of multivessel PTCA stent within the last month. Her chest pain is persistent. Her EKG is abnormal with frequent PVCs, often in a bigeminy pattern. She is on metoprolol. She has hyperlipidemia for which she is on gemfibrozil. She is STATIN intolerant. PHYSICAL EXAMINATION: GENERAL APPEARANCE: Well-nourished, well-developed, appears stated age. Level of distress, comfortable. PSYCHIATRIC: Mental status, alert, normal affect. Orientation, oriented to time, place and person. EYES: Lids and conjunctiva, noninjected. No discharge, no pallor. ENT: Lips, teeth, gums, normal dentition. Oropharynx, no cyanosis, no pallor. NECK: Carotid arteries, bilateral normal upstroke, no bruits, no thrills. JUGULAR VEINS: No jugular venous pressure or distention. CERVICAL LYMPH NODES: Nontender, nonenlarged. THYROID: Not enlarged. Nontender. No nodules. LUNGS: Respiratory effort, unlabored. CHEST: Normal curvature. No thoracic deformity. No chest wall tenderness. Percussion, resonant. Auscultation, clear. No wheezes, no rales, no rhonchi. CARDIOVASCULAR: Precordial exam, nondisplaced. No heaves or pericardial thrills. Rate and rhythm, regular. Heart sounds, normal S1, normal S2. No S3, no gallop, no rub. Systolic murmur, not heard. Diastolic murmur, not heard. EXTREMITIES: No cyanosis, no edema. Peripheral pulses, full and equal in all extremities, except as noted. No bruits appreciated. ABDOMEN: Soft, nondistended. Normal aorta. No bruit. Nontender. No masses. Liver, nontender, no hepatomegaly. Spleen, nontender, no splenomegaly. MUSCULOSKELETAL: No joint tenderness. No joint swelling. No erythema. NEUROLOGICAL: Normal gait, normal strength, normal tone. SKIN: Warm and dry. REVIEW OF SYSTEMS: The patient reports easy bruising but reports no swollen glands. The patient reports no fever, no night sweats, no significant weight gain, no significant weight loss. No significant exercise tolerance. The patient reports no dry eyes, no irritation, no vision change. Patient reports no difficulty hearing and no ear pain. Patient reports no frequent nose bleeds or nose and sinus problems. Patient reports on arm pain on exertion. No shortness of breath while lying down. No history of heart murmur. Patient reports no cough, no wheezing or coughing up blood. Patient reports no HISTORY AND PHYSICAL [id number] BRUNT PERTILE,SHERIDAN F abdominal pain, no vomiting. Normal appetite. No diarrhea and not vomiting blood. No nausea and no constipation. Patient reports no incontinence. No difficulty urinating. No hematuria. No increased frequency. Patient reports no muscle aches. No weakness, no arthralgias, no back pain. No swelling of the extremities. Patient reports no abnormal mole, no jaundice, no rashes. Reports no loss of consciousness. No weakness and no numbness. No seizures, dizziness, or headaches. The patient reports no depression, no sleep disturbance, feeling safe in a relationship and no alcohol abuse. Patient reports on fatigue. Reports no runny nose or sinus pressure. No itching, no hives, and no frequent sneezing. OVERALL IMPRESSION: Anginal symptomatology with multiple PVCs. We will proceed with repeat coronary angiography. Further care depends upon the findings of the angiography. TRANSINT:[id number] Voice Confirmation ID: [id number] DOCUMENT ID: [id number] SAVANA OBRIEN MD at 1806 CC: [id number] DICTATION DATE: 02/11/18 1157 FILAMENT WOUND PARTS FABRICATOR: 02/11/18 1317 DEP CLI 02/12/18 [place] [id number] [place] [id number]
--- NOTE | ~2018-02-11 | DS ---
PATIENT:SHERIDAN VILLATORO :50 MEDICAL RECORD: [id number] DISCHARGE SUMMARY ADMISSION DATE: 02/11/18 DISCHARGE DATE: 02/12/18 DISCHARGE DIAGNOSES: 1. Chest pain. 2. Coronary artery disease. 3. Previous percutaneous transluminal coronary angioplasty stent. 4. Cardiomyopathy, chronic systolic dysfunction. 5. Shortness of breath. 6. Hypertension. 7. Premature ventricular contractions. HOSPITAL COURSE: Mrs. Sheridan Hinojosa presented with shortness of breath and chest pain. She previously underwent PTCA stent of the RCA for single vessel disease. She had a relook coronary angiography. This was widely patent. She does have a cardiomyopathy, ejection fraction in the 30% range. She was previously on metoprolol and had frequent PVCs. She was symptomatic from the PVCs. She was changed to carvedilol 25 mg b.i.d. Her PVCs were abolished with this. She had no further symptomatology, no further chest pain. No further shortness of breath, was discharged home with discontinuation of the metoprolol, institution of the carvedilol 25 mg b.i.d., continuing her gemfibrozil, aspirin, Plavix and hydrochlorothiazide. We will see her back within a month if her blood pressure can tolerate it. At that time, would add further afterload reduction for her cardiomyopathy with GLEN or ARB. TRANSINT:[id number] Voice Confirmation ID: [id number] DOCUMENT ID: [id number] SAVANA OBRIEN MD at 1806 CC: [id number] DICTATION DATE: 02/12/18 1142 CHIEF CRNA: 02/12/18 1412 DEP CLI 02/12/18 [place] [id number] [place] [address]
--- NOTE | ~2018-02-11 | HEMODYNAMI ---
PATIENT:SHERIDAN VILLATORO MEDICAL RECORD: [id number] : 50 LOCATION:D.CAT ADMISSION DATE: 02/11/18 Generatedon:02/11/201813:39 Patient name: SHERIDAN MONTES DE OCA Patient #: [id number] SSN : [id number] : 1950 Date of study: 02/11/2018 Page: Of Hemodynamic Procedure Report Patient Data Patient Demographics Procedure consent was obtained First Name: SHERIDAN Gender: Female Last Name: CHIKA MONTES DE OCA : 1950 Middle Initial: F Age: 67 year(s) Patient #: [id number] Race: SSN: [id number] Additional ID: [id number] Contact details Address: [place] [address] State: [place] City: [place] Zip code: [address] Past Medical History Allergies Allergen Reaction Date Comments Reported Other allergy 01/16/2018 Flu Vaccine, Sumatriptan succinate, codeine. Admission Admission Data Admission Date: 02/11/2018 Admission Time: 9:38 Admit Source: Emergency department Lab Results Lab Result Date: 02/11/2018 Lab Result Time: 9:55 Biochemistry Name Units Result Min Max BUN mg/dl 8 --(*---)-- 7 18 Creatinine mg/dl 0.9 --(-*--)-- 0.6 1.3 CBC Name Units Result Min Max Hematocrit % 34.7 *-(----)-- 42 54 Hemoglobin g/dl 11.7 *-(----)-- 13.5 17.5 Procedure Procedure Types Cath Procedure Diagnostic Procedure [facility] w/Coronaries Procedure Description Procedure Date Procedure Date: 02/11/2018 Procedure Start Time: 13:24 Procedure End Time: 13:36 Procedure Staff Name Function Donta Jiang MD Performing Physician Beto Rogers RT Monitor Taj Luna RN Nurse Tereso Garland RT Scrub Paxton Banda RT Pricer Procedure Data Cath Procedure Fluoroscopy Diagnostic fluoroscopy Total fluoroscopy Time: 0.6 time: 0.6 min min Diagnostic fluoroscopy Total fluoroscopy dose: 116 dose: 116 mGy mGy Contrast Material Contrast Material Type Amount (ml) Isovue 300 46 Entry Location Entry Primary Successful Side Size Upsize Upsize Entry Closure Succes sful Closure Location (Fr) 1 (Fr) 2 (Fr) Remarks Device Remarks Femoral Right 5 Fr Exoseal artery Estimated blood loss: 10 ml Diagnostic catheters Device Type Used For End Catheter Placement MULTIPACK Pigtail 5 Fr Procedure catheter MULTIPACK JL 4.0 5Fr Procedure catheter MULTIPACK 3DRC 5Fr Procedure catheter Procedure Complications No complications Procedure Medications Medication Administration Route Dosage Oxygen etCO2 Nasal cannula 2 l/min Heparin Flush Bag added to field 2 bags (1000units/500ml NS) 0.9% NaCl I.V. 100 ml/hr Lopressor I.V. 5 mg Fentanyl I.V. 50 mcg Versed I.V. 1 mg Fentanyl I.V. 50 mcg Versed I.V. 1 mg Fentanyl I.V. 50 mcg Fentanyl I.V. 50 mcg Hemodynamics Rest HGB: 11.7 (g/dl) Heart Rate: 109 (bpm) Snapshots Pre Cath Intra NCS Post Cath Vital Signs Time Heart Resp SPO2 etCO2 NIBP (mmHg) Rhythm Pain Sedation Rate (ipm) (%) (mmHg) Status Level (bpm) 12:43:04 107 27 100 26.3 168/108(133) NSR 0 (11) 10(A) , No pain 12:47:36 109 14 99 27 163/103(125) NSR 0 (11) 10(A) , No pain 12:52:07 108 21 98 22.5 163/103(140) NSR 0 (11) 10(A) , No pain 12:56:37 106 21 98 22.5 159/104(129) NSR 0 (11) 10(A) , No pain 13:01:05 103 17 97 23.3 158/100(124) NSR 0 (11) 10(A) , No pain 13:05:34 102 18 95 20.2 154/97(118) NSR 0 (11) 10(A) , No pain 13:10:02 103 18 95 20.2 157/93(123) NSR 0 (11) 10(A) , No pain 13:14:28 102 20 95 11.2 151/98(115) NSR 0 (11) 10(A) , No pain 13:18:52 93 16 93 23.2 151/99(128) NSR 0 (11) 10(A) , No pain 13:23:15 90 19 93 12.7 148/97(125) NSR 0 (11) 9(A) , No pain 13:27:39 91 17 93 12 138/87(116) NSR 0 (11) 9(A) , No pain 13:32:01 86 19 93 19.5 140/88(115) NSR 0 (11) 9(A) , No pain 13:36:23 87 18 95 28.5 144/93(115) NSR 0 (11) 9(A) , No pain Medications Time Medication Route Dose Verified Delivered Reason Notes Effe ctiveness by by 13:00:28 Oxygen etCO2 2 Donta Vang Per Nasal l/min Deidre Luna RN physician cannula 13:00:38 Heparin Flush added 2 Donta Vang used for Bag to bags Deidre Luna RN procedure (1000units/500ml field NS) 13:00:49 0.9% NaCl I.V. 100 Donta Vang Per ml/hr Deidre Luna RN physician 13:17:42 Lopressor I.V. 5 mg Donta Vang Per Deidre Luna RN physician 13:17:49 Fentanyl I.V. 50 Donta Vang for elijah Luna RN sedation 13:17:56 Versed I.V. 1 mg Donta Vang for Deidre Luna RN sedation 13:19:50 Fentanyl I.V. 50 Donta Vang for elijah Luna RN sedation 13:19:54 Versed I.V. 1 mg Donta Vang for Deidre Luna RN sedation 13:31:14 Fentanyl I.V. 50 Donta Vang for elijah Luna RN sedation 13:34:08 Fentanyl I.V. 50 Donta Vang for elijah Luna RN sedation Procedure Log Time Note 12:00:51 Admit Source: Emergency department 12:01:23 Diagnostic Cath status Elective 12:01:27 Time tracking: Regular hours (M-F 7:00 - 5:00) 12:01:32 Plan of Care:Hemodynamics will remain stable., Cardiac rhythm will remain stable., Comfort level will be maintained., Respiratory function will remain adequate., Patient/ family verbilizes understanding of procedure., Procedure tolerated without complication., Recovers from procedure without complications.. 12:05:25 Paxton Banda RT(R) sent for patient. Start room use. 12:15:01 H&P Date Dictated: 02/11/2018 Within 30 days and on chart.. 12:15:58 Lab Result : BUN 8 mg/dl 12:15:58 Lab Result : Creatinine 0.9 mg/dl 12:15:58 Lab Result : Hematocrit 34.7 % 12:15:58 Lab Result : Hemoglobin 11.7 g/dl 12:16:00 Lab results completed and on chart. 12:30:36 Patient received from ED to CCL 3 Alert and oriented. Tansferred to table in Supine position. 12:30:36 Warm blankets applied, and michael hugger turned on for patient comfort. 12:30:37 Correct patient and procedure confirmed by team. 12:30:38 Signed procedure consent form obtained from patient. 12:30:39 ECG and BP/O2 sat monitors applied to patient. 12:30:39 Pre-procedure instructions explained to patient. 12:30:40 Pre-op teaching completed and patient verbalized understanding. 12:41:42 Vital chart was started 12:41:43 Baseline sample Acquired. 13:00:28 Oxygen 2 l/min etCO2 Nasal cannula was administered by Taj Luna RN; Per physician; 13:00:38 Heparin Flush Bag (1000units/500ml NS) 2 bags added to field was administered by Taj Luna RN; used for procedure; 13:00:43 Rhythm: sinus rhythm 13:00:45 Full Disclosure recording started 13:00:49 0.9% NaCl 100 ml/hr I.V. was administered by Taj Luna RN; Per physician; 13:00:49 Family unavailable. 13:00:51 Patient NPO since Midnight. 13:00:52 Is the patient allergic to Iodine/contrast media? No. 13:01:06 Is patient on blood thinner?Yes 13:01:08 ACC The patient was administered the following blood thiners within the last 24 hours: ACCPlavix 13:01:10 Patient diabetic? No. 13:01:13 Patient not . Patient is over age 55. 13:01:20 Previous problem with sedation/anesthesia? No ? 13:01:21 Snore? Yes 13:01:22 Sleep apnea? Yes 13:01:23 Deviated septum? No 13:01:24 Opens mouth fully? Yes 13:01:25 Sticks out tongue? Yes 13:01:27 Airway obstruction? No ? 13:01:31 Dentures? No ? 13:01:35 Pre procedure: right dorsailis pedis pulse 1+ Palpable, but thready & weak; easily obliterated 13:02:35 Radial pulse too weak. 13:02:40 Patient pain scale 0/10 ?. 13:02:47 IV patent on arrival in left antecubital with 0.9% NaCl at [facility]. 13:02:51 Right groin area was prepped with chlora-prep and draped in sterile fashion 13:02:53 Alarms reviewed by R. N. 13:02:53 Sharps counted by scrub and verified by R.N. 13:03:24 Use device set Femoral Dx 13:03:29 Tegaderm 4 x 4 (1626W) opened to sterile field. 13:03:30 ACIST Manifold (33011) opened to sterile field. 13:03:31 ACIST Hand Control (87077) opened to sterile field. 13:03:47 Medline Cath Pack ([id number]) opened to sterile field. 13:03:48 Bag Decanter (2002S) opened to sterile field. 13:03:49 ACIST Syringe (55293) opened to sterile field. 13:03:55 PERCUTANEOUS ENTRY 19GA needle opened to sterile field. 13:03:57 DIAGNOSTIC WIRE .035 260cm J wire (512373) opened to sterile field. 13:03:58 DIAGNOSTIC Multipack 5Fr catheter set ([id number]) opened to sterile field. 13:04:00 SHEATH Prelude 5Fr 0.035 (CQK-7Y-47-035) opened to sterile field. 13:17:31 --------ALL STOP TIME OUT------ 13:17:33 Final Timeout: patient, procedure, and site verified with staff and physician. All members of the team are in agreement. 13:17:35 Right groin site verified by team. 13:17:37 Physical assessment completed. ASA score P 2 - A patient with mild systemic disease as per Donta Jiang MD. 13:17:40 Sedation plan: IV Moderate Sedation Medication:Versed, Fentanyl 13:17:42 Lopressor 5 mg I.V. was administered by Taj Luna RN; Per physician; 13:17:49 Fentanyl 50 mcg I.V. was administered by Taj Luna RN; for sedation; 13:17:56 Versed 1 mg I.V. was administered by Taj Luna RN; for sedation; 13:19:50 Fentanyl 50 mcg I.V. was administered by Taj Luna RN; for sedation; 13:19:54 Versed 1 mg I.V. was administered by Taj Luna RN; for sedation; 13:24:47 Procedure started. 13:24:51 Local anesthetic to right femoral artery with Lidocaine 2% by Donta Jiang MD.INITIAL ACCESS ONLY 13:25:54 Physician called emergently to the ER. Pt being monitored. 13:30:43 Physician returned from ER. 13:31:14 Fentanyl 50 mcg I.V. was administered by Taj Luna RN; for sedation; 13:31:52 Additional Lidocaine 2% administered to right groin by Dr Jiang. 13:32:03 A 5 Fr sheath was inserted into the Right Femoral artery 13:32:18 A MULTIPACK Pigtail 5 Fr catheter was advanced over the wire and used for Procedure. 13:32:31 LV angiography performed. 13:32:32 LV gram done using BOWLING 13:32:38 EF : 20 % 13:32:46 Injector settings: Ml/sec: 10, Volume: 20, 13:32:48 Catheter removed. 13:32:53 A MULTIPACK JL 4.0 5Fr catheter was advanced over the wire and used for Procedure. 13:33:34 LCA angiography performed. 13:33:45 Catheter removed. 13:34:00 A MULTIPACK 3DRC 5Fr catheter was advanced over the wire and used for Procedure. 13:34:08 Fentanyl 50 mcg I.V. was administered by Taj Luna RN; for sedation; 13:34:16 RCA angiography performed. 13:34:17 Catheter removed. 13:34:19 EXOSEAL 5Fr (EX500) opened to sterile field. 13:34:44 Sheath removed intact; hemostasis achieved with Exoseal to the Right Femoral artery. 13:34:47 Procedure ended.(Physican Out) 13:35:01 Fluoroscopy time 00.60 minutes. 13:35:06 Fluoroscopy dose: 116 mGy 13:35:06 Flurop Dose total: 116 13:35:09 Contrast amount:Isovue 300 46ml. 13:35:10 Sharps counted by scrub and verified by R.N. 13:35:12 Insertion/operative site no bleeding no hematoma. 13:35:19 Post-op/insertion site Right Femoral artery dressed using a 4 x 4 and Tegaderm. 13:35:21 Post Procedure Pulses reassessed and unchanged 13:35:24 Post-procedure physical assessment completed. ASA score P 2 - A patient with mild systemic disease as per Donta Jiang MD. 13:35:26 Post procedure rhythm: unchanged. 13:35:29 Estimated blood loss: 10 ml 13:35:47 Post procedure instruction explained to patient.Patient verbalizes understanding. 13:35:48 Patient needs reinforcement of post procedure teaching. 13:36:01 Procedure and supply charges have been captured, reviewed, submitted and are correct. 13:36:04 Procedure Complication : No complications 13:36:47 Vital chart was stopped 13:36:48 See physician's report for complete and final results. 13:36:51 Report given to PCU. 13:36:53 Patient transfered to PCU with Bed. 13:36:55 Procedure ended. 13:36:55 Full Disclosure recording stopped 13:37:55 End room use (Document Last) Device Usage Item Name Manufacture Quantity Catalog Number Hospital Part Current M inimal Lot# / Charge Number Stock Stock Serial# Code Tegaderm 4 x 4 3M 1 [id number] [id number] 5 (1626W) ACIST Manifold Acist 1 94489 444450 392451 128785 5 (39102) [employer] ACIST Hand Acist 1 02776 927134 089697 745602 5 Control (31332) [employer] Medline Cath Cardinal 1 [id number] 344667 51568 778885 5 Pack Health ([id number]) Bag Decanter Microtek 1 004477 02493 192236 5 () Medical Inc. ACIST Syringe Acist 1 50111 861455 298069 930909 2 0 (69159) [employer] PERCUTANEOUS Cook Medical 1 X96131 082108 902308 5 ENTRY 19GA needle DIAGNOSTIC WIRE [facility] 1 443495 271699 901517 077538 3 0 .035 260cm J wire (175598) DIAGNOSTIC Cardinal 1 [id number] 249724 39766 293065 3 0 Multipack 5Fr Health catheter set (HO9648) SHEATH Prelude Merit 1 YLC-8C-47-035 165553 614934 495047 5 5Fr 0.035 Medical (QAE-8N-81-035) MULTIPACK Cardinal 1 902996 5 Pigtail 5 Fr Health catheter MULTIPACK JL Cardinal 1 [id number] 5 4.0 5Fr Health catheter MULTIPACK 3DRC Cardinal 1 974298 5 5Fr catheter Health EXOSEAL 5Fr Cardinal 1 EX500 628489 322425 432740 1 0 (EX500) Health Signature Audit [place] Stage Time Signature Unsigned Intra-Procedure 02/11/2018 Beto Rogers 1:39:32 PM RT(R) Signatures Monitor : Beto Rogers RT Signature : Date : Time : [address] [address]
[2018-02-11 08:00] VITALS: BP 111/63
[~2018-02-11 09:38] MED LIST changes: +PLAVIX75 MG PO
[2018-02-11 10:04] LABS: BASOPHILS 0.6 % (0-2); EOSINOPHILS 1.2 % (0-7); HEMATOCRIT 34.7 % (36.0-48.0); HEMOGLOBIN 11.7 g/dL (12-16); IMMATURE GRANULOCYTES 0.2 % (0-5); LYMPHOCYTES 22.2 % (15-50); MCH 31.5 pg (26.0-34.0); MCHC 33.7 g/dL (31.0-37.0); MCV 93.5 fL (80.0-100.0); MEAN PLATELET VOLUME 9.2 fL (7.4-10.4); MONOCYTES 4.8 % (2-11); PLATELET COUNT 268 10x3/uL (130-400); RBC 3.71 10x6/uL (4.00-5.40); RDW 13.3 % (11.5-14.5)
[2018-02-11 10:26] LABS: ALBUMIN 3.8 g/dL (3.4-5.0); ALKALINE PHOSPHATASE 78 U/L (46-116); ALT (SGPT) 19 U/L (10-68); CALC OSMOLALITY 271 mosm/kg (275-300); CALCIUM 8.6 mg/dL (8.5-10.1); CARBON DIOXIDE 25.1 mmol/L (21.0-32.0); CHLORIDE - SERUM 102 mmol/L (98-107); CREATININE - SERUM 0.9 mg/dL (0.6-1.3); GLUCOSE 94 mg/dL (74-106); POTASSIUM - SERUM 3.9 mmol/L (3.5-5.1); PROTEIN - SERUM 7.9 g/dL (6.4-8.2); SODIUM 137 mmol/L (136-145); UREA NITROGEN 8 mg/dL (7-18); eGFR NON AFRICAN AMERICAN 66 mL/min (90-120)
[2018-02-11 10:38] LABS: CKMB 0.8 U/L (0.0-3.6); CREATINE KINASE 43 UL (21-215); PRO BNP 949 pg/mL (0-125)
[2018-02-11 10:39] LABS: TROPONIN-I < 0.017 ng/mL (0.000-0.060)
[2018-02-11 14:20] VITALS: BP 136/83; Ht 157.5 cm; Wt 85.0 kg
[2018-02-11 14:57] VITALS: BP 134/79
[2018-02-11] MEDS ORDERED: CYCLOBENZAPRINE10 MG PO (20:00)
[2018-02-12 04:33] VITALS: BP 107/61
[2018-02-12 07:43] VITALS: BP 119/69
[2018-02-12 11:24] VITALS: BP 108/65
[2018-02-12] MEDS ORDERED: COREG25 MG PO (12:08)
== END 2018-02-12 13:20 | disposition home or self-care (01) ==
LOC: D.M2 09:38 → D.CATH 09:38 → D.ER 09:38 → EDSTATUS 12:08 → D.M2 13:47 → D.CATH 02-12 13:20
PROVIDERS: Emergency Medicine
DX: I25.119 Atherosclerotic heart disease of native coronary artery with unspecified angina pectoris (principal); Z95.5 Presence of coronary angioplasty implant and graft; I42.8 Other cardiomyopathies; I50.22 Chronic systolic (congestive) heart failure; I10 Essential (primary) hypertension; E78.5 Hyperlipidemia, unspecified; I49.3 Ventricular premature depolarization; R00.2 Palpitations; Z01.812 Encounter for preprocedural laboratory examination

== ENCOUNTER 2018-03-17 08:53 | Emergency (ER) | payer MEDICARE, OTHER ==
[~2018-03-17] VITALS: Ht 157.5 cm; Wt 90.7 kg
[~2018-03-17 08:53] MED LIST changes: +COREG25 MG PO; +CYCLOBENZAPRINE10 MG PO
[2018-03-17 08:54] VITALS: Ht 157.5 cm; Wt 90.7 kg
[2018-03-17 09:18] LABS: BASOPHILS 0.3 % (0-2); EOSINOPHILS 1.4 % (0-7); HEMATOCRIT 34.4 % (36.0-48.0); HEMOGLOBIN 11.9 g/dL (12-16); LYMPHOCYTES 26.6 % (15-50); MCH 31.1 pg (26.0-34.0); MCHC 34.6 g/dL (31.0-37.0); MCV 89.8 fL (80.0-100.0); MEAN PLATELET VOLUME 9.8 fL (7.4-10.4); MONOCYTES 8.2 % (2-11); NEUTROPHILS 63.5 % (40-80); PLATELET COUNT 232 10x3/uL (130-400); RBC 3.83 10x6/uL (4.00-5.40); WBC 2.9 10x3/uL (4.8-10.8)
[2018-03-17 09:34] LABS: ALBUMIN 3.9 g/dL (3.4-5.0); ALKALINE PHOSPHATASE 70 U/L (46-116); ALT (SGPT) 15 U/L (10-68); BILIRUBIN - TOTAL 0.38 mg/dL (0.2-1.3); CALC OSMOLALITY 266 mosm/kg (275-300); CALCIUM 9.2 mg/dL (8.5-10.1); CARBON DIOXIDE 27.5 mmol/L (21.0-32.0); CHLORIDE - SERUM 97 mmol/L (98-107); CREATININE - SERUM 0.9 mg/dL (0.6-1.3); GLUCOSE 101 mg/dL (74-106); PROTEIN - SERUM 7.8 g/dL (6.4-8.2); SODIUM 133 mmol/L (136-145); UREA NITROGEN 15 mg/dL (7-18); eGFR NON AFRICAN AMERICAN 66 mL/min (90-120)
[2018-03-17 09:36] LABS: AMYLASE - SERUM 31 U/L (25-115); LIPASE 99 U/L (73-393)
[2018-03-17 09:47] LABS: CKMB 0.5 U/L (0.0-3.6); CREATINE KINASE 34 UL (21-215); PRO BNP 745 pg/mL (0-125); TROPONIN-I < 0.017 ng/mL (0.000-0.060)
[2018-03-17] MEDS ORDERED: LASIX20 MG PO (10:02)
[2018-03-17] MEDS ORDERED: INDOCIN25 MG PO (10:03)
[2018-03-17 10:29] VITALS: BP 120/73
== END 2018-03-17 10:31 | disposition home or self-care (01) ==
LOC: D.ER 08:53
PROVIDERS: Emergency Medicine
DX: R07.9 Chest pain, unspecified (principal); I11.0 Hypertensive heart disease with heart failure; I50.9 Heart failure, unspecified; Z86.73 Personal history of transient ischemic attack (TIA), and cerebral infarction without residual deficits; I44.7 Left bundle-branch block, unspecified

== ENCOUNTER 2018-04-20 06:17 | Emergency (ER) | payer MEDICARE, OTHER ==
[~2018-04-20] VITALS: Ht 157.5 cm; Wt 93.2 kg
[~2018-04-20 06:17] MED LIST changes: +INDOCIN25 MG PO; +LASIX20 MG PO
[2018-04-20 06:20] VITALS: BP 174/99; Ht 157.5 cm; Wt 93.2 kg
[2018-04-20 06:47] LABS: BASOPHILS 1.2 % (0-2); EOSINOPHILS 2.5 % (0-7); HEMATOCRIT 31.7 % (36.0-48.0); HEMOGLOBIN 10.8 g/dL (12-16); IMMATURE GRANULOCYTES 0.8 % (0-5); LYMPHOCYTES 36.2 % (15-50); MCH 30.9 pg (26.0-34.0); MCHC 34.1 g/dL (31.0-37.0); MCV 90.8 fL (80.0-100.0); MEAN PLATELET VOLUME 9.2 fL (7.4-10.4); MONOCYTES 11.1 % (2-11); NEUTROPHILS 48.2 % (40-80); PLATELET COUNT 246 10x3/uL (130-400); RBC 3.49 10x6/uL (4.00-5.40); RDW 13.6 % (11.5-14.5); WBC 2.4 10x3/uL (4.8-10.8)
[2018-04-20 07:04] LABS: CALC OSMOLALITY 272 mosm/kg (275-300); CALCIUM 8.9 mg/dL (8.5-10.1); CARBON DIOXIDE 26.1 mmol/L (21.0-32.0); CHLORIDE - SERUM 99 mmol/L (98-107); GLUCOSE 97 mg/dL (74-106); POTASSIUM - SERUM 3.7 mmol/L (3.5-5.1); SODIUM 135 mmol/L (136-145); UREA NITROGEN 22 mg/dL (7-18); eGFR NON AFRICAN AMERICAN 58 mL/min (90-120)
[2018-04-20 07:06] LABS: TROPONIN-I < 0.017 ng/mL (0.000-0.060)
[2018-04-20] MEDS ORDERED: ADVAIR HFA [SP]12 GM INH (07:20)
[2018-04-20 07:38] LABS: APPEARANCE CLEAR (CLEAR); BACTERIA FEW /hpf (NONE SEEN); BILIRUBIN NEGATIVE (NEGATIVE); COLOR YELLOW (YELLOW); EPITHELIAL CELLS 0-5 /hpf (0-5); GLUCOSE NEGATIVE (NEGATIVE); KETONE NEGATIVE (NEGATIVE); NITRITE NEGATIVE (NEGATIVE); PROTEIN NEGATIVE (NEGATIVE); RED CELLS - URINE 0-5 /hpf (0-5); SPECIFIC GRAVITY 1.015 (1.005-1.020); UROBILINOGEN NORMAL (NORMAL); WHITE CELLS - URINE 0-5 /hpf (0-5)
== END 2018-05-04 08:21 | disposition home or self-care (01) ==
LOC: D.ER 06:17
PROVIDERS: Emergency Medicine
DX: J45.901 Unspecified asthma with (acute) exacerbation (principal); Z86.73 Personal history of transient ischemic attack (TIA), and cerebral infarction without residual deficits; I11.0 Hypertensive heart disease with heart failure; I50.9 Heart failure, unspecified; K21.9 Gastro-esophageal reflux disease without esophagitis; Z85.89 Personal history of malignant neoplasm of other organs and systems

== ENCOUNTER 2018-08-19 19:47 | Emergency (ER) | payer MEDICARE, OTHER ==
[~2018-08-19] VITALS: Ht 157.5 cm; Wt 113.6 kg
[~2018-08-19 19:47] MED LIST changes: +ADVAIR HFA [SP]12 GM INH
[2018-08-19 19:51] VITALS: Ht 157.5 cm; Wt 113.6 kg
[2018-08-19 20:15] LABS: BASOPHILS 0.3 % (0-2); EOSINOPHILS 0.9 % (0-7); HEMATOCRIT 35.7 % (36.0-48.0); HEMOGLOBIN 12.2 g/dL (12-16); IMMATURE GRANULOCYTES 0.3 % (0-5); MCH 31.2 pg (26.0-34.0); MCHC 34.2 g/dL (31.0-37.0); MCV 91.3 fL (80.0-100.0); MEAN PLATELET VOLUME 9.3 fL (7.4-10.4); MONOCYTES 10.6 % (2-11); NEUTROPHILS 63.9 % (40-80); PLATELET COUNT 262 10x3/uL (130-400); RBC 3.91 10x6/uL (4.00-5.40); RDW 13.9 % (11.5-14.5); WBC 3.4 10x3/uL (4.8-10.8)
[2018-08-19 20:20] LABS: COLOR YELLOW (YELLOW)
[2018-08-19 20:21] LABS: APPEARANCE CLEAR (CLEAR); BILIRUBIN NEGATIVE (NEGATIVE); GLUCOSE NEGATIVE (NEGATIVE); KETONE NEGATIVE (NEGATIVE); NITRITE NEGATIVE (NEGATIVE); PROTEIN TRACE mg/dL (NEGATIVE); SPECIFIC GRAVITY 1.015 (1.005-1.020); UROBILINOGEN NORMAL (NORMAL)
[2018-08-19 20:22] LABS: BACTERIA FEW /hpf (NONE SEEN); EPITHELIAL CELLS 0-5 /hpf (0-5); RED CELLS - URINE 0-5 /hpf (0-5)
[2018-08-19 20:24] LABS: APTT 28.9 SECONDS (22.8-39.4); PROTIME 12.7 SECONDS (11.6-15.0)
[2018-08-19 20:34] LABS: ALBUMIN 4.1 g/dL (3.4-5.0); ALKALINE PHOSPHATASE 81 U/L (46-116); ALT (SGPT) 20 U/L (10-68); BILIRUBIN - TOTAL 0.41 mg/dL (0.2-1.3); CALC OSMOLALITY 272 mosm/kg (275-300); CALCIUM 9.2 mg/dL (8.5-10.1); CARBON DIOXIDE 27.3 mmol/L (21.0-32.0); CHLORIDE - SERUM 93 mmol/L (98-107); CREATININE - SERUM 1.2 mg/dL (0.6-1.3); GLUCOSE 108 mg/dL (74-106); POTASSIUM - SERUM 3.1 mmol/L (3.5-5.1); PROTEIN - SERUM 8.6 g/dL (6.4-8.2); SODIUM 134 mmol/L (136-145); UREA NITROGEN 24 mg/dL (7-18); eGFR NON AFRICAN AMERICAN 47 mL/min (90-120)
[2018-08-19 20:46] LABS: CKMB 0.9 U/L (0.0-3.6); CREATINE KINASE 110 UL (21-215); PRO BNP 1100 pg/mL (0-125)
[2018-08-19 20:54] LABS: TROPONIN-I < 0.017 ng/mL (0.000-0.060)
[2018-08-19] MEDS ORDERED: ZITHROMAX TRI-500 MG PO (22:03)
[2018-08-19] MEDS ORDERED: TESSALON PERLE100 MG PO (22:03)
[2018-08-19] MEDS ORDERED: OMNICEF300 MG PO (22:03)
[2018-08-19] MEDS ORDERED: ALBUTEROL SULF8.5 GM INH (22:04)
[2018-08-19 22:37] VITALS: BP 132/85
== END 2018-08-19 22:38 | disposition home or self-care (01) ==
LOC: D.ER 19:47
PROVIDERS: Family Medicine
DX: J20.9 Acute bronchitis, unspecified (principal); N39.0 Urinary tract infection, site not specified; R05 Cough; R50.9 Fever, unspecified

== ENCOUNTER → 2018-08-28 08:38 | Outpatient (CLI) | payer MEDICARE, OTHER ==
[2018-08-19 19:51] VITALS: BMI 45.8
[~2018-08-28 08:38] MED LIST changes: +ALBUTEROL SULF8.5 GM INH; +OMNICEF300 MG PO; +TESSALON PERLE100 MG PO; +ZITHROMAX TRI-500 MG PO
== END | disposition home or self-care (01) ==
LOC: D.US 08:38
PROVIDERS: ATTEND Family Medicine
DX: E04.1 Nontoxic single thyroid nodule (principal)

== ENCOUNTER 2018-09-01 19:09 | Emergency (ER) | payer MEDICARE, OTHER ==
[~2018-09-01] VITALS: Ht 157.5 cm; Wt 88.2 kg
[2018-09-01 19:10] VITALS: Ht 157.5 cm; Wt 88.2 kg
[2018-09-01 19:39] LABS: BASOPHILS 0.6 % (0-2); EOSINOPHILS 1.6 % (0-7); HEMATOCRIT 35.9 % (36.0-48.0); HEMOGLOBIN 12.5 g/dL (12-16); IMMATURE GRANULOCYTES 0.6 % (0-5); LYMPHOCYTES 38.2 % (15-50); MCH 31.1 pg (26.0-34.0); MCHC 34.8 g/dL (31.0-37.0); MCV 89.3 fL (80.0-100.0); MEAN PLATELET VOLUME 9.2 fL (7.4-10.4); MONOCYTES 8.1 % (2-11); NEUTROPHILS 50.9 % (40-80); RBC 4.02 10x6/uL (4.00-5.40); RDW 13.4 % (11.5-14.5); WBC 5.2 10x3/uL (4.8-10.8)
[2018-09-01 19:46] LABS: PLATELET COUNT 406 10x3/uL (130-400)
[2018-09-01 19:57] LABS: ANION GAP 15.3 mmol/L (8-16); BILIRUBIN - TOTAL 0.45 mg/dL (0.2-1.3); CALCIUM 9.7 mg/dL (8.5-10.1); CARBON DIOXIDE 27.7 mmol/L (21.0-32.0); CREATININE - SERUM 1.2 mg/dL (0.6-1.3); PROTEIN - SERUM 8.5 g/dL (6.4-8.2)
[2018-09-01 22:25] VITALS: BP 145/80
== END 2018-09-01 22:25 | disposition home or self-care (01) ==
LOC: D.ER 19:09
PROVIDERS: Family Medicine
DX: K56.41 Fecal impaction (principal); E87.6 Hypokalemia; E87.1 Hypo-osmolality and hyponatremia

== ENCOUNTER → 2018-11-13 10:09 | Outpatient (CLI) | payer MEDICARE, OTHER ==
[2018-09-01 19:10] VITALS: BMI 35.5
== END | disposition home or self-care (01) ==
LOC: D.CT 10:09 → D.MAMMO 11:30
PROVIDERS: ATTEND Family Medicine
DX: Z12.31 Encounter for screening mammogram for malignant neoplasm of breast (principal); R05 Cough

== ENCOUNTER 2018-12-17 05:55 | Day surgery (SDC) | payer MEDICARE, OTHER ==
[~2018-12-17] VITALS: Ht 157.5 cm; Wt 86.6 kg
--- NOTE | ~2018-12-17 | OP ---
PATIENT NAME: SHERIDAN MIR MEDICAL RECORD: [id number] :50 LOCATION:D.OPS ADMISSION DATE: SURGEON: YESICA HODGE MD DATE OF OPERATION: 12/17/2018 PREOPERATIVE DIAGNOSES: 1. Volume gastroesophageal reflux. 2. Dysphagia at the level of the cricopharyngeus. POSTOPERATIVE DIAGNOSES: 1. Volume gastroesophageal reflux. 2. Dysphagia at the level of the cricopharyngeus. 3. Moderate gastritis including antral erosions. 4. Large hiatal hernia. 5. Rule out distal Patricio's esophagus. SURGEON: Yesica Hodge MD TOP PRINTING PRESS OPERATOR: None. BLOOD LOSS: Minimal. ANESTHESIA: IV sedation. PROCEDURES: 1. Esophagogastroduodenoscopy with antral and distal esophageal biopsies. 2. Esophageal dilation with a oqfnazb-ixe-injyppxg balloon, to 60-Hungarian. The risks, possible complications, and alternatives to the procedure were explained to the patient. She elects to proceed. ENDOSCOPIC COURSE: The patient was conveyed to the endoscopy suite electively on 12/17/2018. IV sedation was induced by the anesthesia staff. The patient was positioned on the left side. A bite block was inserted. A gastroscope was inserted into the mouth. It was advanced easily into the hypopharynx. The esophagus was easily intubated as were the stomach and duodenum. Upon withdrawal, retroflexed and angulus views were obtained. Cold endoscopic biopsies were obtained in the antrum to rule out H. pylori. I then withdrew into the cardia of the stomach. I advanced a ahpcirr-lfv-alzhwtyd balloon. I then sequentially dilated the entire length of the esophagus to 60-Hungarian. The balloon dilator was then removed. I then re-endoscoped the patient's esophagus and stomach to ensure that no false passage or perforation had occurred. Indeed, there was no evidence of a false passage or perforation. Multiple cold endoscopic biopsies were performed in the distal esophagus at the EG junction in order to rule out Patricio's esophagus. The endoscope was then withdrawn under direct vision. I am going to ensure that the patient is on H2 argelia. She would be, I think, a good candidate for an antireflux procedure with a hiatal hernia repair. I will discuss this with her when I see her in the office in 3 weeks. TRANSINT:[id number] Voice Confirmation ID: [id number] DOCUMENT ID: [id number] OPERATIVE REPORT [id number] SHERIDAN MIR ROBERT MD CC: ANITA OLIVIER DO [id number] DICTATION DATE: 12/17/18 1056 VACUUM SYSTEM TESTER: 12/17/18 1218 DEP SD 12/17/18 [place] [id number]
[2018-12-17 06:25] LABS: HEMATOCRIT 32.7 % (36.0-48.0); HEMOGLOBIN 11.5 g/dL (12-16); MCHC 35.2 g/dL (31.0-37.0); MCV 88.1 fL (80.0-100.0); MEAN PLATELET VOLUME 9.3 fL (7.4-10.4); RBC 3.71 10x6/uL (4.00-5.40); RDW 13.7 % (11.5-14.5)
[2018-12-17 06:32] LABS: ANION GAP 14.2 mmol/L (8-16); CALCIUM 10.3 mg/dL (8.5-10.1); CARBON DIOXIDE 28.3 mmol/L (21.0-32.0); POTASSIUM - SERUM 3.5 mmol/L (3.5-5.1)
[2018-12-17 08:07] VITALS: BP 136/53; Ht 157.5 cm; Wt 86.6 kg
--- NOTE | 2018-12-17 11:35 | NUR ---
PT DC INSTRUCTIONS REVIEWED AT THIS TIME, PT VERBALIZES UNDERSTANDING. PT IV REMOVED AT THIS TIME, NO REDNESS OR SWELLING NOTED AT SITE.
--- NOTE | 2018-12-17 12:10 | NUR ---
PT LEAVING OPS SURGERY AT THIS TIME VIA WC, NAD NOTED.
--- NOTE | 2018-12-17 14:35 | HP ---
PATIENT: SHERIDAN MIR MEDICAL RECORD: [id number] ACCOUNT: [id number] LOCATION:[facility] : 50 ADMISSION DATE: 12/17/18 PCP: ANITA OLIVIER DO HISTORY AND PHYSICAL EXAMINATION CHIEF COMPLAINT: Reflux. HISTORY OF PRESENT ILLNESS: The patient is volume refluxer. She brought refluxes up into her mouth in the middle of the night, has sudden episodes of coughing and sometimes she cannot breath. She does have some dysphagia at the level of cricopharyngeus and would like to have her esophagus dilated. I am going to plan for an EGD with biopsies to rule out H. pylori and a colonoscopy as well. ALLERGIES: CODEINE, TORADOL, MORPHINE, SULFA, SUMATRIPTANS. PAST MEDICAL AND SURGICAL HISTORY: Asthma, bronchitis, sleep apnea, coronary artery disease, hypertension, congestive heart failure, history of myocardial infarction times 1, history of coronary stents times 2, history of CVA back in 2010, gastroesophageal reflux, thyroid nodules, history of thyroidectomy, osteoarthritis, osteoporosis. Reportedly, she is "slow to wakeup" after endoscopy or surgery. HOME MEDICINES: Please see the nursing list. PHYSICAL EXAMINATION: GENERAL: The patient does not appear acutely ill. She does not appear chronically ill. VITAL SIGNS: Reviewed. EARS: External ears appear normal. EYES: Extraocular movements are intact. NECK: Trachea is midline. She does have a neck scar. PSYCHIATRIC: Normal affect. NEUROLOGIC: Nonfocal, no lethargy. IMPRESSION: 1. Volume gastroesophageal reflux. 2. Dysphagia. PLAN: EGD with biopsies and esophageal dilation. TRANSINT:[id number] Voice Confirmation ID: [id number] DOCUMENT ID: [id number] YESICA HODGE MD at 1435 CC: ANITA OLIVIER DO and SAVANA OBRIEN [id number] DICTATION DATE: 12/17/18 1023 DATABASE MANAGEMENT SYSTEM SPECIALIST: 12/17/18 1039 [facility] 12/17/18 [place] [address]
== END 2018-12-17 12:10 | disposition home or self-care (01) ==
LOC: D.OPS 05:55
PROVIDERS: Anesthesiology; ATTEND Surgery
DX: K21.9 Gastro-esophageal reflux disease without esophagitis (principal); R13.10 Dysphagia, unspecified; K29.00 Acute gastritis without bleeding; K44.9 Diaphragmatic hernia without obstruction or gangrene; Z01.812 Encounter for preprocedural laboratory examination

== ENCOUNTER 2019-04-17 10:17 | Emergency (ER) | payer MEDICARE, OTHER ==
[~2019-04-17] VITALS: Ht 157.5 cm; Wt 85.0 kg
[2019-04-17 10:30] VITALS: Ht 157.5 cm; Wt 85.0 kg
[2019-04-17 11:51] LABS: BASOPHILS 0.3 % (0-2); EOSINOPHILS 1.4 % (0-7); HEMOGLOBIN 11.4 g/dL (12-16); IMMATURE GRANULOCYTES 0.3 % (0-5); LYMPHOCYTES 24.7 % (15-50); MCH 31.8 pg (26.0-34.0); MCHC 35.6 g/dL (31.0-37.0); MCV 89.4 fL (80.0-100.0); MEAN PLATELET VOLUME 9.2 fL (7.4-10.4); MONOCYTES 7.9 % (2-11); NEUTROPHILS 65.4 % (40-80); PLATELET COUNT 280 10x3/uL (130-400); RBC 3.58 10x6/uL (4.00-5.40); WBC 3.7 10x3/uL (4.8-10.8)
[2019-04-17 11:57] LABS: CALC OSMOLALITY 252 mosm/kg (275-300); CALCIUM 9.2 mg/dL (8.5-10.1); CARBON DIOXIDE 31.9 mmol/L (21.0-32.0); CHLORIDE - SERUM 88 mmol/L (98-107); CREATININE - SERUM 0.8 mg/dL (0.6-1.3); GLUCOSE 102 mg/dL (74-106); SODIUM 125 mmol/L (136-145); UREA NITROGEN 15 mg/dL (7-18); eGFR NON AFRICAN AMERICAN 75 mL/min (90-120)
[2019-04-17 12:04] LABS: ALKALINE PHOSPHATASE 70 U/L (46-116); ALT (SGPT) 18 U/L (10-68); BILIRUBIN - TOTAL 0.66 mg/dL (0.2-1.3)
[2019-04-17] MEDS ORDERED: MIRALAX17 GM PO (12:18)
[2019-04-17] MEDS ORDERED: CHRONULAC30 ML PO (13:45)
[2019-04-17 15:15] VITALS: BP 138/85
== END 2019-04-17 15:16 | disposition home or self-care (01) ==
LOC: D.ER 10:17
PROVIDERS: Family Medicine
DX: K59.00 Constipation, unspecified (principal); E87.6 Hypokalemia; E87.1 Hypo-osmolality and hyponatremia

== ENCOUNTER 2019-07-01 19:04 | Emergency (ER) | payer MEDICARE, OTHER ==
[~2019-07-01] VITALS: Ht 152.4 cm; Wt 85.0 kg
[~2019-07-01 19:04] MED LIST changes: +CHRONULAC30 ML PO; +MIRALAX17 GM PO; +SYNTHROID150 MCG PO; -SYNTHROID175 MCG PO
[2019-07-01 19:11] VITALS: Ht 152.4 cm; Wt 85.0 kg
[2019-07-01] MEDS ORDERED: PROTONIX20 MG PO (19:21)
[2019-07-01] MEDS ORDERED: ULTRAM50 MG PO (19:24)
[2019-07-01] MEDS ORDERED: ASPIRIN81 MG PO (19:26)
[2019-07-01] MEDS ORDERED: ACETAMINOPHEN500 M1 PO (19:28)
[2019-07-01] MEDS ORDERED: NASACORT10.8 ML NASAL (19:30)
[2019-07-01 20:02] LABS: BASOPHILS 0.3 % (0-2); EOSINOPHILS 1.7 % (0-7); HEMATOCRIT 31.7 % (36.0-48.0); HEMOGLOBIN 11.1 g/dL (12-16); LYMPHOCYTES 37.2 % (15-50); MCH 31.1 pg (26.0-34.0); MCV 88.8 fL (80.0-100.0); MEAN PLATELET VOLUME 9.2 fL (7.4-10.4); MONOCYTES 10.7 % (2-11); NEUTROPHILS 50.1 % (40-80); PLATELET COUNT 270 10x3/uL (130-400); RBC 3.57 10x6/uL (4.00-5.40); RDW 13.1 % (11.5-14.5)
[2019-07-01 20:17] LABS: ALKALINE PHOSPHATASE 71 U/L (46-116); ALT (SGPT) 18 U/L (10-68); AMYLASE - SERUM 39 U/L (25-115); BILIRUBIN - TOTAL 0.33 mg/dL (0.2-1.3); CALC OSMOLALITY 261 mosm/kg (275-300); CALCIUM 9.4 mg/dL (8.5-10.1); CARBON DIOXIDE 26.8 mmol/L (21.0-32.0); CHLORIDE - SERUM 89 mmol/L (98-107); CREATININE - SERUM 0.8 mg/dL (0.6-1.3); GLUCOSE 95 mg/dL (74-106); LIPASE 119 U/L (73-393); PROTEIN - SERUM 7.8 g/dL (6.4-8.2); SODIUM 129 mmol/L (136-145); UREA NITROGEN 20 mg/dL (7-18); eGFR NON AFRICAN AMERICAN 75 mL/min (90-120)
[2019-07-01 20:23] LABS: POTASSIUM - SERUM 2.9 mmol/L (3.5-5.1)
[2019-07-01] MEDS ORDERED: K-TAB10 MEQ PO (21:08)
[2019-07-01 21:33] VITALS: BP 107/61
== END 2019-07-01 21:33 | disposition home or self-care (01) ==
LOC: D.ER 19:04
PROVIDERS: Family Medicine
DX: K59.00 Constipation, unspecified (principal); E87.6 Hypokalemia; Z86.73 Personal history of transient ischemic attack (TIA), and cerebral infarction without residual deficits; I10 Essential (primary) hypertension; J45.909 Unspecified asthma, uncomplicated

== ENCOUNTER → 2019-07-17 15:39 | Outpatient (CLI) | payer MEDICARE, OTHER ==
[2019-07-01 19:11] VITALS: BMI 36.5
[~2019-07-17 15:39] MED LIST changes: +ASPIRIN81 MG PO; +K-TAB10 MEQ PO; +NASACORT10.8 ML NASAL; +PROTONIX20 MG PO; +ULTRAM50 MG PO
[2019-07-17 19:06] LABS: BILIRUBIN - DIRECT 0.14 mg/dL (0.00-0.30); BILIRUBIN - INDIRECT 0.41 mg/dL (0.00-1.00); BILIRUBIN - TOTAL 0.55 mg/dL (0.2-1.3); THYROID STIMULATING HORMONE 1.36 uIU/mL (0.36-3.74)
== END | disposition home or self-care (01) ==
LOC: D.LABREF 15:39
PROVIDERS: ATTEND Internal Medicine Pulmonary Disease
DX: J42 Unspecified chronic bronchitis (principal); J44.9 Chronic obstructive pulmonary disease, unspecified; I27.20 Pulmonary hypertension, unspecified

== ENCOUNTER → 2019-08-08 08:11 | Outpatient (CLI) | payer MEDICARE, OTHER ==
[2019-07-01 19:11] VITALS: BMI 36.5
[2019-08-08 09:08] LABS: BILIRUBIN - DIRECT 0.18 mg/dL (0.00-0.30); BILIRUBIN - INDIRECT 0.42 mg/dL (0.00-1.00); BILIRUBIN - TOTAL 0.6 mg/dL (0.2-1.3); PROTEIN - SERUM 8.3 g/dL (6.4-8.2); THYROID STIMULATING HORMONE 1.13 uIU/mL (0.36-3.74)
[2019-08-09 07:12] LABS: ANA REFLEX - DIRECT Negative (Negative)
== END | disposition home or self-care (01) ==
LOC: D.RT 07-31 08:30 → D.NM 07-31 09:00 → D.LAB 07-31 10:00 → D.RT 08:11
PROVIDERS: ATTEND Internal Medicine Pulmonary Disease
DX: J44.9 Chronic obstructive pulmonary disease, unspecified (principal); I27.20 Pulmonary hypertension, unspecified

== ENCOUNTER → 2019-09-24 10:44 | Outpatient (CLI) | payer MEDICARE, OTHER ==
[2019-07-01 19:11] VITALS: BMI 36.5
== END | disposition home or self-care (01) ==
LOC: D.HCCECHO 10:30
PROVIDERS: ATTEND Internal Medicine Cardiovascular Disease
DX: I25.10 Atherosclerotic heart disease of native coronary artery without angina pectoris (principal)

== ENCOUNTER 2019-11-26 11:20 | Outpatient (CLI) | payer MEDICARE, OTHER ==
[~2019-11-26] VITALS: Ht 152.4 cm; Wt 85.5 kg
--- NOTE | ~2019-11-26 | HEMODYNAMI ---
PATIENT:SHERIDAN MIR MEDICAL RECORD: [id number] : 50 LOCATION:[facility] ADMISSION DATE: 11/26/19 Generatedon:11/26/201913:22 Patient name: SHERIDAN MIR Patient #: [id number] SSN: [id number] : 1950 Date of study: 11/26/2019 Page: Of Hemodynamic Procedure Report Patient Data Patient Demographics Procedure consent was obtained First Name: SHERIDAN Gender: Female Last Name: CLARKE : 1950 Middle Initial: F Age: 69 year(s) Patient #: [id number] Race: SSN: [id number] Additional ID: [id number] Contact details [address]: [address] [place] [address] State: [place] City: [place] Zip code: [address] Past Medical History Allergies Allergen Reaction Date Comments Reported Other allergy 01/16/2018 Flu Vaccine, Sumatriptan succinate, codeine. Admission Admission Data Admission Date: 11/26/2019 Admission Time: 11:20 Arrival Date: 11/26/2019 Arrival Time: 0:00 Admit Source: Other Insurance Payor: Medicare [facility] #: [id number] Height (in.): 59.84 BSA: 1.81 (m2) Height (cm.): 152 BMI: 36.79 (kg/m2) Weight (lbs.): 187.39 Weight (kg.): 85 Lab Results Lab Result Date: 11/26/2019 Lab Result Time: 0:00 Biochemistry Name Units Result Min Max BUN mg/dl 22 --(----)-* 7 18 Creatinine mg/dl 1.1 --(--*-)-- 0.6 1.3 eGFR ml/min 52 *-(----)-- 90 120 NONAFRICAN Procedure Procedure Types Cath Procedure Diagnostic Procedure LHC LHC w/Coronaries Sedation Charges Moderate Sedation up to 15 minutes Procedure Description Procedure Date Procedure Date: 11/26/2019 Procedure Start Time: 13:09 Procedure End Time: 13:20 Procedure Staff Name Function Georges Dugan MD Ordering physician Reyes Ghosh MD Performing Physician Becca Mohan RT Regeneration Operator Neha Eason RT Monitor Linsey Feldman RN Nurse Florecita Andrews RT Scrub Indication Anticipation of possible valve surgery Procedure Data Cath Procedure Fluoroscopy Diagnostic fluoroscopy Total fluoroscopy Time: 1.6 time: 1.6 min min Diagnostic fluoroscopy Total fluoroscopy dose: 523 dose: 523 mGy mGy Contrast Material Contrast Material Type Amount (ml) Isovue 300 79 Entry Location Entry Primary Successful Side Size Upsize Upsize Entry Closure Succes sful Closure Location (Fr) 1 (Fr) 2 (Fr) Remarks Device Remarks Femoral Right 5 Fr Exoseal artery Estimated blood loss: 10 ml Diagnostic catheters Device Type Used For End Catheter Placement MULTIPACK JL 4.0 5Fr Procedure catheter MULTIPACK 3DRC 5Fr Procedure catheter MULTIPACK Pigtail 5 Fr Ventriculography catheter Procedure Complications No complications Procedure Medications Medication Administration Route Dosage Versed I.V. 2 mg Fentanyl I.V. 50 mcg 0.9% NaCl I.V. 100 ml/hr Oxygen etCO2 Nasal cannula 2 l/min Lidocaine 2% added to field 20 Heparin Flush Bag added to field 2 bags (1000units/500ml NS) Hemodynamics Rest BSA: 1.81 (m2) O2 Consumption: Estimated: 169.33 (ml/min) O2 Consumption indexed : Estimated:93.55 (ml/min/m) Heart Rate: 73 (bpm) Pressure Samples Time Site Value (mmHg) Purpose Heart Use Rate(bpm) 13:15 LV 121/10,18 Snapshot 71 13:17 AO 119/61(82) Pullback 70 13:17 LV 127/9,26 Pullback 70 Gradients Valve Time Site 1 Site 2 Mean SEP/DFP Peak To Heart Use (mmHg) (sec/min) Peak Rate (mmHg) (bpm) Aortic 13:17 LV AO 10 16 8 70 127/9,26 119/61(82) Calculations Valve P-P Mean Valve Index Valve Source Name Gradient Area Flow (cm2) Aortic 8 10 8 10 Snapshots Pre Cath Intra NCS Post Cath Vital Signs Time Heart Resp SPO2 etCO2 NIBP (mmHg) Rhythm Pain Sedation Rate (ipm) (%) (mmHg) Status Level (bpm) 12:53:59 86 13 96 35.2 146/85(119) NSR 0 (11) 10(A) , No pain 12:58:15 70 13 98 39.6 133/88(107) NSR 0 (11) 10(A) , No pain 13:02:35 71 20 99 38.1 130/77(97) NSR 0 (11) 10(A) , No pain 13:06:49 77 14 99 38.1 133/83(101) NSR 0 (11) 10(A) , No pain 13:11:07 68 13 100 37.4 121/77(105) NSR 0 (11) 10(A) , No pain 13:15:21 78 14 99 38.1 129/81(108) NSR 0 (11) 10(A) , No pain 13:19:39 69 13 99 37.4 130/78(109) NSR 0 (11) 10(A) , No pain Medications Time Medication Route Dose Verified Delivered Reason Notes Eff ectiveness by by 12:57:08 Versed I.V. 2 mg Reyes Linsey used for Augie Feldman licensed practical vocational nurse 12:57:21 Fentanyl I.V. 50 Reyes Linsey for mcg Augie Feldman sedation RN 13:06:38 0.9% NaCl I.V. 100 Reyes Linsey used for ml/hr Augie Feldman licensed practical vocational nurse 13:06:44 Oxygen etCO2 2 Reyes Linsey used for Nasal l/min Augie Feldman procedure cannula RN 13:06:52 Lidocaine 2% added 20ml Reyes Reyes for local to vial Augie Ghosh MD anesthetic field 13:06:57 Heparin Flush added 2 Reyes Reyes used for Bag to bags Augie Ghosh MD procedure (1000units/500ml field NS) Procedure Log Time Note 12:24:55 Arrival Date: 11/26/2019 12:00:00 AM 12:25:46 Admit Source: Other 12:25:49 Insurance Payor : Medicare 12:31:29 Indication : Anticipation of possible valve surgery 12:36:21 Patient Height : 59.84 inches 12:36:25 Patient Weight : 187.39 lbs 12:38:54 Procedure Status Elective Heart Cath (OP). 12:39:00 Becca Mohan RT(R) sent for patient. Start room use. 12:39:03 Time tracking: Regular hours (M-F 7:00 - 5:00) 12:39:18 Plan of Care:Hemodynamics will remain stable., Cardiac rhythm will remain stable., Comfort level will be maintained., Respiratory function will remain adequate., Patient/ family verbilizes understanding of procedure., Procedure tolerated without complication., Recovers from procedure without complications.. 12:43:47 Patient received from Pre/Post Procedure Room to CCL 1 Alert and oriented. Tansferred to table in Supine position. 12:43:57 Signed procedure consent form obtained from patient. 12:43:59 Warm blankets applied, and michael hugger turned on for patient comfort. 12:43:59 Correct patient and procedure confirmed by team. 12:44:00 ECG and BP/O2 sat monitors applied to patient. 12:44:12 H&P Date Dictated: 11/26/2019 Within 30 days and on chart., H&P Addendum completed by physician on day of procedure. (MUST COMPLETE FOR ALL OUTPATIENTS). 12:44:14 Pre-procedure instructions explained to patient. 12:44:18 Family in waiting room. 12:44:20 Patient NPO since Midnight. 12:45:26 Is the patient allergic to Iodine/contrast media? No. 12:45:28 Was the patient premedicated? Yes 12:45:30 Is patient on blood thinner?No 12:45:33 Patient diabetic? No. 12:45:38 Snore? Yes 12:45:39 Sleep apnea? Yes 12:45:45 Airway obstruction? Yes Asthma 12:45:53 Patient pain scale 0/10 ?. 12:46:12 IV patent on arrival in left forearm with 0.9% NaCl at KVO. 12:46:18 Lab results completed and on chart. 12:46:37 Right groin area was prepped with chlora-prep and draped in sterile fashion 12:46:39 Alarms reviewed by R. N. 12:46:40 Sharps counted by scrub and verified by R.N. 12:46:41 Physician paged 12:46:42 Physician arrived 12:52:49 Vital chart was started 12:52:52 Baseline sample Acquired. 12:52:54 Baseline sample Acquired. 12:53:04 Full Disclosure recording started 12:54:19 Maximum allowable contrast dose (3.7 X eGFR X 0.75)144 ml. 12:54:23 3a) 45-59 Moderately reduced kidney function. 12:54:50 Lab Result : BUN 22 mg/dl 12:54:50 Lab Result : eGFR NONAFRICAN 52 ml/min 12:54:50 Lab Result : Creatinine 1.1 mg/dl 12:56:37 --------ALL STOP TIME OUT------ 12:56:39 Final Timeout: patient, procedure, and site verified with staff and physician. All members of the team are in agreement. 12:56:41 Right groin site verified by team. 12:56:45 Fire Safety Assessment: A--An alcohol-based skin anteseptic being used preoperatively., C--Open oxygen or nitrous oxide is being used., D--An ESU, laser, or fiber-optic light is being used. 12:56:53 Physical assessment completed. ASA score P 2 - A patient with mild systemic disease as per Reyes Ghosh MD. 12:57:00 Sedation plan: IV Moderate Sedation Medication:Versed, Fentanyl 12:57:08 Versed 2 mg I.V. was administered by Linsey Feldman RN; used for procedure; Verbal order read back and verified. 12:57:21 Fentanyl 50 mcg I.V. was administered by Linsey Feldman RN; for sedation; Verbal order read back and verified. 12:57:24 Use device set Femoral Dx 12:57:35 ACIST Syringe (66318) opened to sterile field. 12:57:36 Bag Decanter (2001S) opened to sterile field. 12:57:37 Medline Cath Pack ([id number]) opened to sterile field. 12:57:38 ACIST Hand Control (65769) opened to sterile field. 12:57:38 ACIST Manifold (31618) opened to sterile field. 12:57:39 DIAGNOSTIC Multipack 5Fr catheter set (CH9749) opened to sterile field. 12:57:40 Tegaderm 4 x 4 (1626W) opened to sterile field. 12:57:41 EXOSEAL 5Fr (EX500) opened to sterile field. 12:57:42 SHEATH 5FR [place] (SSZ630) opened to sterile field. 12:57:42 EMERALD Guide Wire (502-455) opened to sterile field. 13:06:38 0.9% NaCl 100 ml/hr I.V. was administered by Linsey Feldman RN; used for procedure; Verbal order read back and verified. 13:06:44 Oxygen 2 l/min etCO2 Nasal cannula was administered by Linsey Feldman RN; used for procedure; Verbal order read back and verified. 13:06:52 Lidocaine 2% 20ml vial added to field was administered by Reyes Ghosh MD; for local anesthetic; Verbal order read back and verified. 13:06:57 Heparin Flush Bag (1000units/500ml NS) 2 bags added to field was administered by Reyes Ghosh MD; used for procedure; Verbal order read back and verified. 13:09:34 Procedure started. 13:09:54 Local anesthetic to right femoral artery with Lidocaine 2% by Reyes Ghosh MD.INITIAL ACCESS ONLY 13:10:14 A 5 Fr sheath was inserted into the Right Femoral artery 13:11:03 A MULTIPACK JL 4.0 5Fr catheter was advanced over the wire and used for Procedure. 13:11:17 LCA angiography performed. 13:11:36 Catheter removed. 13:11:51 A MULTIPACK 3DRC 5Fr catheter was advanced over the wire and used for Procedure. 13:11:59 RCA angiography performed. 13:14:20 Catheter removed. 13:14:31 A MULTIPACK Pigtail 5 Fr catheter was advanced over the wire and used for Ventriculography. 13:16:53 EF : 45 % 13:17:30 Catheter removed. 13:17:46 Sheath removed intact; hemostasis achieved with Exoseal to the Right Femoral artery. 13:17:50 Procedure ended.(Physican Out) 13:18:42 Fluoroscopy time 01.60 minutes. 13:18:47 Fluoroscopy dose: 523 mGy 13:18:47 Flurop Dose total: 523 13:18:52 Dose Area Product 30782 mGy/cm. 13:18:57 Contrast amount:Isovue 300 79ml. 13:19:02 Maximum allowable dose exceeded? No. 13:19:04 Sharps counted by scrub and verified by R.N. 13:19:05 Insertion/operative site no bleeding no hematoma. 13:19:09 Post-op/insertion site Right Femoral artery dressed using a 4 x 4 and Tegaderm. 13:19:16 Post procedure: right dorsailis pedis pulse Other. 13:19:20 Post-procedure physical assessment completed. ASA score P 2 - A patient with mild systemic disease as per Reyes Ghosh MD. 13:19:27 Post procedure rhythm: unchanged. 13:19:30 Estimated blood loss: 10 ml 13:19:32 Post procedure instruction explained to patient.Patient verbalizes understanding. 13:20:02 Procedure type changed to Cath procedure, Diagnostic procedure, LHC, C w/Coronaries, Sedation Charges, Moderate Sedation up to 15 minutes 13:20:03 Procedure and supply charges have been captured, reviewed, submitted and are correct. 13:20:18 Procedure and supply charges have been captured, reviewed, submitted and are correct. 13:20:24 Procedure Complication : No complications 13:20:27 Vital chart was stopped 13:20:29 [facility] Findings: mild to moderate CAD (<70%) 13:20:32 See physician's report for complete and final results. 13:20:35 Report given to CVICU. 13:20:40 Patient transfered to CVICU with Bed. 13:20:43 Procedure ended. 13:20:43 Full Disclosure recording stopped 13:20:47 End room use (Document Last) 13:21:14 End room use (Document Last) 13:21:39 End room use (Document Last) Device Usage Item Name Manufacture Quantity Catalog Hospital Part Current Minimal L ot# / Number Charge Number Stock Stock Serial# Code ACIST Acist 1 87266 138888 141907 562536 20 Syringe Medical (51666) Systems Inc Bag Microtek 1 201364 07548 183641 5 Decanter Medical Inc. () Medline Medline 1 [id number] 626682 58174 627487 5 Cath Pack ([id number]) ACIST Hand Acist 1 41401 668470 097742 676955 5 Control Medical (02819) Systems Inc ACIST Acist 1 44791 780723 527193 123760 5 Manifold Medical (70046) Systems Inc DIAGNOSTIC Cardinal 1 NF7613 389812 39862 688404 30 Multipack Health 5Fr catheter set (KK7935) Tegaderm 4 3M 1 1626W 165581 177739 553091 5 x 4 (1626W) EXOSEAL 5Fr Cardinal 1 EX500 318604 727121 179039 10 (EX500) Health SHEATH 5FR Terumo 1 QSP113 128393 823313 403838 5 Arlington (KZM832) EMERALD Cardinal 1 689-554 330358 662190 765561 5 Guide Wire Health (004-328) MULTIPACK Cardinal 1 959849 5 JL 4.0 5Fr Health catheter MULTIPACK Cardinal 1 933489 5 3DRC 5Fr Health catheter MULTIPACK Cardinal 1 373942 5 Pigtail 5 Health Fr catheter Signature Audit [place] Stage Time Signature Unsigned Intra-Procedure 11/26/2019 Neha Eason 1:21:14 PM RT(R) Intra-Procedure 11/26/2019 Linsey Feldman 1:21:39 PM RN Intra-Procedure 11/26/2019 Reyes Ghosh MD 1:22:14 PM [id number] [place] [address]
[2019-11-26] MEDS ORDERED: MELATONIN 3 MG1 TAB PO (12:00)
[2019-11-26] MEDS ORDERED: MIRALAX17 GM PO (12:01)
[2019-11-26 12:15] VITALS: BP 138/84; Ht 152.4 cm; Wt 85.5 kg
[2019-11-26] MEDS ORDERED: PROTONIX40 MG PO (12:18)
[2019-11-26] MEDS ORDERED: TUMS X-STR300 MG PO (12:19)
[2019-11-26] MEDS ORDERED: SYSTANE NIGHTT3.5 GM EACH EYE (12:19)
[2019-11-26 12:45] LABS: ANION GAP 8.6 mmol/L (8-16); CALCIUM 9.2 mg/dL (8.5-10.1); CARBON DIOXIDE 30.6 mmol/L (21.0-32.0); CHOL - HDL RATIO 2.6 ratio (2.3-4.1); CREATININE - SERUM 1.1 mg/dL (0.6-1.3); LDL-HDL RATIO 1.4 ratio (1.5-3.5); POTASSIUM - SERUM 3.2 mmol/L (3.5-5.1)
[2019-11-26 12:53] LABS: BASOPHILS 0.6 % (0-2); EOSINOPHILS 1.1 % (0-7); HEMOGLOBIN 11.1 g/dL (12-16); IMMATURE GRANULOCYTES 0.3 % (0-5); LYMPHOCYTES 31.5 % (15-50); MCH 31.1 pg (26.0-34.0); MCHC 34.7 g/dL (31.0-37.0); MCV 89.6 fL (80.0-100.0); MEAN PLATELET VOLUME 9.2 fL (7.4-10.4); MONOCYTES 9.3 % (2-11); NEUTROPHILS 57.2 % (40-80); PLATELET COUNT 292 10x3/uL (130-400); RBC 3.57 10x6/uL (4.00-5.40); WBC 3.6 10x3/uL (4.8-10.8)
--- NOTE | 2019-11-26 13:40 | NUR ---
PATIENT ARRIVED TO ROOM 5, PLACED ON CM. VSS ON ROOM AIR. RIGHT GROIN DRESSING IS CDI, NO S/S OF BLEEDING OR HEMATOMA. NO C/O PAIN, NUMBNESS, OR TINGLING. FAMILY CALLED AND UPDATED REGARDING PLAN OF CARE.
--- NOTE | 2019-11-26 13:55 | NUR ---
PATIENT RESTING, VSS ON ROOM AIR. RIGHT GROIN DRESSING IS CDI, NO S/S OF BLEEDING OR HEMATOMA. NO C/O PAIN, NUMBNESS, OR TINGLING. NO N/V. PATIENT ASSISTED WITH BEDPAN, 200CC OF YELLOW URINE VOIDED WITHOUT DIFFICULTY.
--- NOTE | 2019-11-26 14:25 | NUR ---
PATIENT RESTING, VSS ON ROOM AIR. RIGHT GROIN DRESSING IN PLACE IS CDI, NO S/S OF BLEEDING OR HEMATOMA. NO C/O PAIN, NUMBNESS, OR TINGLING. PPP, EQUAL BILATERALLY. NO N/V. WILL CONTINUE TO MONITOR.
--- NOTE | 2019-11-26 14:55 | NUR ---
HEAD OF BED ELEVATED TO 45 DEGREES. RIGHT GROIN DRESSING IS CDI, NO S/S OF BLEEDING OR HEMATOMA. VSS ON ROOM AIR. NO C/O PAIN, NUMBNESS, OR TINGLING. PATIENT GIVEN SANDWICH AND SODA PER REQUEST, NO N/V. FAMILY CALLED WITH UPDATE.
--- NOTE | 2019-11-26 15:25 | NUR ---
PATIENT TAKEN TO X-RAY PER PHYSICIAN ORDERS, RIGHT GROIN DRESSING IS CDI, NO S/S OF BLEEDING OR HEMATOMA. NO C/O PAIN, NUMBNESS, OR TINGLING. VSS ON ROOM AIR. NO N/V.
--- NOTE | 2019-11-26 15:55 | NUR ---
PATIENT IN ROOM, VSS ON CM. RIGHT GROIN DRESSING IS CDI, NO S/S OF BLEEDING OR HEMATOMA. PATIENT RETURNED FROM X RAY, LAB AND ECHO AT BEDSIDE. WILL CONTINUE TO MONITOR.
[2019-11-26 16:19] LABS: APTT 30.3 SECONDS (22.8-39.4); INR 1.06 (0.85-1.17); PROTIME 13.7 SECONDS (11.6-15.0)
--- NOTE | 2019-11-26 16:25 | NUR ---
RESPIRATORY WITH PATIENT. VSS ON ROOM AIR. URINE COLLECTED. RIGHT GROIN DRESSING IS CDI, NO S/S OF BLEEDING OR HEMATOMA. NO C/O PAIN, NUMBNESS, OR TINGLING. FAMILY UPDATED VIA PHONE. NO N/V.
--- NOTE | 2019-11-26 16:42 | NUR ---
DR. MOTA'S NURSE, SCOTT NOTIFIED OF CRITICAL POTASSIUM LEVEL ON ABG.
[2019-11-26 16:48] LABS: PHOSPHOROUS 3.4 mg/dL (2.5-4.9); T4 THYROXIN - FREE 1.64 ng/dL (0.76-1.46); THYROID STIMULATING HORMONE 1.84 uIU/mL (0.36-3.74); URIC ACID 8.2 mg/dL (2.6-7.2)
--- NOTE | 2019-11-26 16:51 | NUR ---
PATIENT IV REMOVED, CATHLON INTACT. PATIENT DISCONNECTED FROM MONITORS TO GET DRESSED. WRITTEN AND VERBAL DISCHARGE INSTRUCTIONS AND PRE-SURGERY INFORMATION GIVEN TO PATIENT, PATIENT VOICES UNDERSTANDING.
--- NOTE | 2019-11-26 17:00 | NUR ---
PATIENT TRANSPORTED VIA WHEELCHAIR TO CAR WITH FAMILY DRIVING, ALL BELONGINGS AND PAPERWORK WITH PATIENT.
[2019-11-26 17:24] LABS: BILIRUBIN NEGATIVE (NEGATIVE); GLUCOSE NEGATIVE (NEGATIVE); KETONE NEGATIVE (NEGATIVE); NITRITE NEGATIVE (NEGATIVE); UROBILINOGEN NORMAL (NORMAL)
== END 2019-11-26 17:00 ==
LOC: D.CATH 11:20
PROVIDERS: Thoracic Surgery (Cardiothoracic Vascular Surgery); ATTEND Internal Medicine Interventional Cardiology
DX: I34.0 Nonrheumatic mitral (valve) insufficiency (principal); I25.10 Atherosclerotic heart disease of native coronary artery without angina pectoris; Z86.73 Personal history of transient ischemic attack (TIA), and cerebral infarction without residual deficits; J45.909 Unspecified asthma, uncomplicated; K21.9 Gastro-esophageal reflux disease without esophagitis; E03.9 Hypothyroidism, unspecified; E78.5 Hyperlipidemia, unspecified; I10 Essential (primary) hypertension; I49.3 Ventricular premature depolarization

== ENCOUNTER 2019-11-29 02:13 | Inpatient (IN) | payer MEDICARE, OTHER ==
[~2019-11-29] VITALS: Ht 152.4 cm; Wt 85.5 kg
[2019-11-29] VITALS (8 sets, daily range): BP systolic 118–137; BP diastolic 55–87; BMI 29.3
[~2019-11-29 02:13] MED LIST changes: +MELATONIN 3 MG1 TAB PO; +PROTONIX40 MG PO; +SYSTANE NIGHTT3.5 GM EACH EYE; +TUMS X-STR300 MG PO
[2019-11-29 02:53] LABS: BASOPHILS 0.3 % (0-2); EOSINOPHILS 1.7 % (0-7); HEMATOCRIT 30.5 % (36.0-48.0); HEMOGLOBIN 10.2 g/dL (12-16); IMMATURE GRANULOCYTES 0.3 % (0-5); LYMPHOCYTES 44.8 % (15-50); MCH 30.9 pg (26.0-34.0); MCHC 33.4 g/dL (31.0-37.0); MCV 92.4 fL (80.0-100.0); MEAN PLATELET VOLUME 8.8 fL (7.4-10.4); MONOCYTES 7.2 % (2-11); NEUTROPHILS 45.7 % (40-80); PLATELET COUNT 266 10x3/uL (130-400); RDW 13.5 % (11.5-14.5); WBC 3.6 10x3/uL (4.8-10.8)
[2019-11-29 02:58] LABS: APTT 29.5 SECONDS (22.8-39.4); PROTIME 13.2 SECONDS (11.6-15.0)
[2019-11-29 03:11] LABS: ALKALINE PHOSPHATASE 57 U/L (30-120); ALT (SGPT) 19 U/L (10-68); BILIRUBIN - TOTAL 0.53 mg/dL (0.2-1.3); CALC OSMOLALITY 247 mosm/kg (275-300); CALCIUM 8.3 mg/dL (8.5-10.1); CARBON DIOXIDE 31.7 mmol/L (21.0-32.0); CHLORIDE - SERUM 87 mmol/L (98-107); CKMB 1.2 U/L (0.0-3.6); CREATINE KINASE 68 UL (21-215); GLUCOSE 99 mg/dL (74-106); MAGNESIUM - SERUM 1.7 mg/dL (1.8-2.4); POTASSIUM - SERUM 3.9 mmol/L (3.5-5.1); PROTEIN - SERUM 7.4 g/dL (6.4-8.2); SODIUM 122 mmol/L (136-145); TROPONIN-I 0.027 ng/mL (0.000-0.060); UREA NITROGEN 17 mg/dL (7-18); eGFR NON AFRICAN AMERICAN 58 mL/min (90-120)
--- NOTE | 2019-11-29 07:37 | NUR ---
RECEIVED PT FROM ER. PT IS AAO AND UP AD BRYN. CALL LIGHT W/I REACH. NO S/S OF DISTRESS NOTED. PT STATES NO ACTIVE CHEST PAIN AT THIS TIME. PIV SALINE LOCKED. TELEMETRY APPLIED. PT DENIES ANY NEEDS AT THIS TIME. WILL CTM.
[2019-11-29 09:44] LABS: CKMB 1.5 U/L (0.0-3.6); CREATINE KINASE 85 UL (21-215); TROPONIN-I < 0.017 ng/mL (0.000-0.060)
--- NOTE | 2019-11-29 10:26 | NUR ---
ASSESSMENT COMPLPETE PT AAOX4 RESP UNLABORED ON ROOM AIR SKIN W/D COLOR WNL TELEMETRY INTACT SR WITH BBB RATE 80 SALINE LOCK TO LAC WITH OCCLUSIVE DRSG SITE FREE OF REDNESS OR EDEMA
[2019-11-29 13:15] LABS: BILIRUBIN NEGATIVE (NEGATIVE); GLUCOSE NEGATIVE (NEGATIVE); KETONE NEGATIVE (NEGATIVE); NITRITE NEGATIVE (NEGATIVE); SPECIFIC GRAVITY 1.005 (1.005-1.020); UROBILINOGEN NORMAL (NORMAL)
[2019-11-29 15:29] LABS: CKMB 1.4 U/L (0.0-3.6); CREATINE KINASE 72 UL (21-215); TROPONIN-I 0.033 ng/mL (0.000-0.060)
[2019-11-29] MEDS ORDERED: ZYPREXA5 MG PO (19:35)
[2019-11-29] MEDS ORDERED: ZYPREXA5 MG (19:36)
--- NOTE | 2019-11-29 21:36 | NUR ---
INITIAL ROUNDS COMPLETED AT 1910 HRS. NO DISTRESS NOTED. ASSESSMENT COMPLETED AT 0 HRS. SR PER CM HR 81. VS. ALERT AND ORIENTED TO PERSON, PLACE AND TIME. DEL ANGEL. LUNGS ESSENTIALLY CTA. PT STATES SHE MUST HAVE HER ZYPREXA AND BENADRYL THIS PM. [facility] PAGED AT 2000 HRS. K VIVI BOYD RETURNED CALL AT 2006 HRS. INFORMED THAT PT WANTS HER ZYPREXA AND BENADRYL THIS PM. NEW ORDERS RECEIVED AND NOTED. PM MEDS GIVEN. CALL LIGHT WITHIN REACH.
--- NOTE | 2019-11-29 23:34 | NUR ---
PT RESTING WITH EYES CLOSED. RESP EVEN AND REGULAR. SR UP X1, CALL LIGHT WITHIN REACH.
[2019-11-30 00:30] VITALS: BP 111/59
--- NOTE | 2019-11-30 01:30 | NUR ---
PT RESTING WITH EYES CLOSED. RESP EVEN AND REGULAR. CALL LIGHT WITHIN REACH.
--- NOTE | 2019-11-30 04:05 | NUR ---
PT RESTING WITH EYES CLOSED. RESP EVEN AND REGULAR. CALL LIGHT WITHIN REACH.
[2019-11-30 04:30] VITALS: BP 103/60
[2019-11-30 04:46] LABS: BASOPHILS 0.4 % (0-2); HEMATOCRIT 31.6 % (36.0-48.0); HEMOGLOBIN 10.7 g/dL (12-16); IMMATURE GRANULOCYTES 0.4 % (0-5); LYMPHOCYTES 33.5 % (15-50); MCH 31.2 pg (26.0-34.0); MCHC 33.9 g/dL (31.0-37.0); MCV 92.1 fL (80.0-100.0); MEAN PLATELET VOLUME 8.9 fL (7.4-10.4); MONOCYTES 12.7 % (2-11); PLATELET COUNT 239 10x3/uL (130-400); RBC 3.43 10x6/uL (4.00-5.40); RDW 13.9 % (11.5-14.5); WBC 2.5 10x3/uL (4.8-10.8)
[2019-11-30 05:29] LABS: ANION GAP 11.6 mmol/L (8-16); CALCIUM 9.4 mg/dL (8.5-10.1); MAGNESIUM - SERUM 2.1 mg/dL (1.8-2.4); POTASSIUM - SERUM 3.6 mmol/L (3.5-5.1)
--- NOTE | 2019-11-30 06:12 | NUR ---
VSS THROUGHOUT NIGHT. SR PER CM. PT RESTED WELL DURING SHIFT. NEEDS MET; WILL CONTINUE TO MONITOR.
[2019-11-30 09:00] VITALS: BP 121/52
--- NOTE | 2019-11-30 09:31 | CN ---
PATIENT NAME:SHERIDAN MIR MEDICAL RECORD: [id number] : 50 LOCATION:D. D.6 ADMIT DATE: 11/29/19 ACCOUNT: [id number] CONSULTING PHYSICIAN: LAURA MARQUEZ MD REFERRING PHYSICIAN: ANA MARÍA ESCALONA MD DATE OF CONSULTATION: 11/29/2019 HISTORY OF PRESENT ILLNESS: A 69-year-old female well known to our service with a history of mitral valve disease, actually she is scheduled for mitral valve repair, possible CABG next week. Admitted with mild volume overload, shortness of breath, responded nicely to Lasix. Has a history of hypertension, hyperlipidemia. We are asked to see her concerning her cardiovascular status. PAST MEDICAL HISTORY: Includes: 1. History of hypertension. 2. Hyperlipidemia. 3. Mitral valve disease as described above. 4. Coronary artery disease as described in Dr. Ghosh's catheterization from this week. 5. Gastroesophageal reflux disease. 6. Hypothyroidism, on replacement. MEDICATIONS: Include Synthroid 150 mcg daily, Protonix 40 mcg every day, HCTZ 25 every day, Lasix 20 every day, aspirin 81 every day, gemfibrozil 600 every day, carvedilol 25 b.i.d. ALLERGIES: IMITREX, SULFA, FLU VACCINE, MORPHINE, AND CODEINE. SOCIAL HISTORY: Nonsmoker, nondrinker. Has able to take care of all her ADLs.. No set exercise program. REVIEW OF SYSTEMS: The patient reports easy bruising but reports no swollen glands. The patient reports no fever, no night sweats, no significant weight gain, no significant weight loss. No significant exercise tolerance. The patient reports no dry eyes, no irritation, no vision change. Patient reports no difficulty hearing and no ear pain. Patient reports no frequent nose bleeds or nose and sinus problems. Patient reports on arm pain on exertion. No shortness of breath while lying down. No history of heart murmur. Patient reports no cough, no wheezing or coughing up blood. Patient reports no abdominal pain, no vomiting. Normal appetite. No diarrhea and not vomiting blood. No nausea and no constipation. Patient reports no incontinence. No difficulty urinating. No hematuria. No increased frequency. Patient reports no muscle aches. No weakness, no arthralgias, no back pain. No swelling of the extremities. Patient reports no abnormal mole, no jaundice, no rashes. Reports no loss of consciousness. No weakness and no numbness. No seizures, dizziness, or headaches. The patient reports no depression, no sleep disturbance, feeling safe in a relationship and no alcohol abuse. Patient reports on fatigue. Reports no runny nose or sinus pressure. No itching, no hives, and no frequent sneezing. PHYSICAL EXAMINATION: GENERAL: Pleasant female, in no acute distress, appears stated age. VITAL SIGNS: Blood pressure 125/55, pulse 80 and regular. HEENT: Normocephalic, atraumatic. NECK: No JVD or bruit. CONSULT REPORT [id number] SHERIDAN MIR HEART: Regular, II-III/ systolic ejection murmur. LUNGS: Good air excursion at this point. ABDOMEN: Soft, nontender. EXTREMITIES: Pulses 2+ with no edema. IMPRESSION: Mild volume overload may be a component of anxiety, typically in view of upcoming surgery, etc. No evidence of myocardial infarction via enzymes. We will add afterload reduction with ARB in the form of irbesartan 50 every day. Further recommendations based on clinical course. TRANSINT:[id number] Voice Confirmation ID: [id number] DOCUMENT ID: [id number] LAURA MARQUEZ MD at 0931 CC: [id number] DICTATION DATE: 11/29/191127 ENGRAVER TENDER: 11/29/19 1607 ADM [address] [place] [address]
--- NOTE | 2019-11-30 10:23 | NUR ---
I have reviewed this patient and I concur with the Shift Assessment completed by the Licensed Practical Nurse today this shift.
[2019-11-30 13:47] VITALS: BP 101/53
[2019-11-30 15:30] VITALS: Ht 152.4 cm; Wt 85.5 kg
[2019-11-30 18:07] VITALS: BP 106/56
[2019-11-30 20:00] VITALS: BP 125/77
--- NOTE | 2019-11-30 21:45 | NUR ---
INITIAL ROUNDS COMPLETED AT 1910 HRS. PT DENIED ANY DISCOMFORT. ASSESSMENT COMPLETED AT 5 HRS. VSS. SR PER CM HR 78. ALERT AND ORIENTED TO PERSON, PLACE AND TIME. DEL ANGEL. LUNGS CTA. NO IV. INFORMED PT SHE WILL PROBABLE NEED IV FOR AM PROCEDURE. PT STATES MAY RESTART IN AM. PM MEDS GIVEN. PT CURRENTLY RESTING WITH EYES CLOSED. RESP EVEN AND REGULAR. SR UP X1,CALL LIGHT WITHIN REACH.
--- NOTE | 2019-11-30 23:26 | NUR ---
PT RESTING WITH EYES CLOSED. RESP EVEN AND REGULAR. CALL LIGHT WITHIN REACH.
[2019-12-01] VITALS: BP 105/55
--- NOTE | 2019-12-01 00:59 | NUR ---
PT RESTING WITH EYES CLSOED. RESP EVEN AND REGULAR. CALL LIGHT WITHIN REACH.
--- NOTE | 2019-12-01 03:24 | NUR ---
PT RESTING WITH EYES CLOSED. RESP EVEN AND REGULAR. CALL LIGHT WITHIN REACH.
[2019-12-01 04:00] VITALS: BP 97/54
--- NOTE | 2019-12-01 05:09 | NUR ---
PT RESTING WITH EYES CLOSED. RESP EVEN AND REGULAR. CALL LIGHT WITHIN REACH.
--- NOTE | 2019-12-01 05:54 | NUR ---
VSS THROUGHOUT NIGHT. SR PER CM. PT STATED SHE RESTED WELL DURING SHIFT. IV SARTED #20 TO UPPER L ARM WITH ATTEMPT X1. PT TOLERATED ACTIVITUY WELL. NEEDS MET; WILL CONTINUE TO MONITOR.
[2019-12-01 06:31] LABS: BASOPHILS 0.4 % (0-2); EOSINOPHILS 3.3 % (0-7); HEMATOCRIT 32.7 % (36.0-48.0); HEMOGLOBIN 10.9 g/dL (12-16); IMMATURE GRANULOCYTES 0.4 % (0-5); LYMPHOCYTES 39.8 % (15-50); MCH 31.2 pg (26.0-34.0); MCHC 33.3 g/dL (31.0-37.0); MCV 93.7 fL (80.0-100.0); MEAN PLATELET VOLUME 9.1 fL (7.4-10.4); MONOCYTES 12.7 % (2-11); NEUTROPHILS 43.4 % (40-80); PLATELET COUNT 251 10x3/uL (130-400); RBC 3.49 10x6/uL (4.00-5.40); RDW 13.8 % (11.5-14.5); WBC 2.4 10x3/uL (4.8-10.8)
[2019-12-01 06:53] LABS: % SATURATION 22 % (15-55); IRON 79 ug/dl (35-150); TOTAL IRON BIND CAPACITY 359 ug/dl (260-445); UNSAT IRON BIND CAPACITY 280 ug/dl (150-375)
--- NOTE | 2019-12-01 07:15 | NUR ---
RECEIVED PT IN BED AAOX4 RESP UNLABORED SKIN W/D NAD NOTED NPO AWAITING ABDOMINAL US
[2019-12-01 07:25] LABS: THYROID STIMULATING HORMONE 3.05 uIU/mL (0.36-3.74)
[2019-12-01 09:35] VITALS: BP 134/84
[2019-12-01 14:33] VITALS: BP 114/74
[2019-12-01 18:13] VITALS: BP 110/70
[2019-12-01 22:05] VITALS: BP 82/47
[2019-12-02] VITALS: BP 105/58
[2019-12-02 04:00] VITALS: BP 123/74
[2019-12-02 09:24] VITALS: BP 127/27
[2019-12-02 11:00] VITALS: BP 127/82
--- NOTE | 2019-12-02 11:31 | NUR ---
PAGE INTO TERESA, RN WITH CARDIOVASCULAR TO SEE WHY THERE IS NO NOTE FROM DR ANDERSON OR DR MOTA FOR 12/01/19. AWAITING CALL BACK.
--- NOTE | 2019-12-02 12:29 | NUR ---
NO RESPONSE FROM ASHISH MOORE AT THIS TIME. PAGED AGAIN.
--- NOTE | 2019-12-02 12:33 | NUR ---
ASHISH MOORE TO CALL ME BACK AND STATES ." WE ARE NOT DOING SURGERY AT THIS TIME". I ASKED THAT SHE PLEASE HAVE THE DOCTOR PUT A NOTE IN COMPUTER FOR IDT. STATES THAT SHE WILL ASK.
[2019-12-02 15:00] VITALS: BP 114/63
--- NOTE | 2019-12-02 16:51 | MORECARE ---
CASE MANAGEMENT DISCHARGE SUMMARY PATIENT: SHERIDAN MIR UNIT: [id number] ADM DATE: 11/29/19 AGE: 69 : 50 SEX: F ROOM/BED: D.3766 AUTHOR: ASTRID MCLAIN PHYSICIAN: REFERRING PHYSICIAN: ANA MARÍA ESCALONA MD DATE OF SERVICE: 12/02/19 Discharge Plan Patient Name: SHERIDAN MIR Facility: [facility]:[place] : 1950 Planned Disposition: Home Anticipated Discharge Date: Discharge Date: Expected LOS: Initial Reviewer: [email or web address] Initial Review Date: 12/02/2019 Generated: 12/02/19 5:50 pm Coverage Notice Reviewer: [email or web address] - Amparo Lynn Notice Issued Date-Time: 12/02/2019 16:48 Notice Type: IM Discharge Notice Notice Delivered To: Patient Relationship to Patient: Self Child Health Associate Name: Delivery Method: HAND - Hand Delivered Ernestina Days: Prior Verbal Notification: Recipient Understood Notice: Yes Recipient Signature: Yes Med Rec Note Co-signed by Attending: Coverage Notice Comment: IMM explained, signed, given, copy placed in MR Patient Name: SHERIDAN MIR Page [phone] at 1651 All edits/amendments must be made on the electronic document DICTATION DATE: 12/02/191649 MANAGER SEARCH ENGINE: JUAN RAMON 12/02/191649 RPT#: [id number] DC DATE: STATUS: ADM [address] [place] [address] END OF REPORT
--- NOTE | 2019-12-02 16:57 | MORECARE ---
CASE MANAGEMENT DISCHARGE SUMMARY PATIENT: SHERIDAN MIR UNIT: [id number] ADM DATE: 11/29/19 AGE: 69 : 50 SEX: F ROOM/BED: D.8874 AUTHOR: CHEMO,DOC PHYSICIAN: REFERRING PHYSICIAN: ANA MARÍA ESCALONA MD DATE OF SERVICE: 12/02/19 Discharge Plan Patient Name: SHERIDAN MIR Facility: [facility]:[place] : 1950 Planned Disposition: Home Anticipated Discharge Date: Discharge Date: Expected LOS: Initial Reviewer: [email or web address] Initial Review Date: 12/02/2019 Generated: 12/02/19 5:57 pm Comments DCP- Discharge Planning Updated by [email or web address]: Amparo Lynn on 12/02/19 3:[address] Patient Name: SHERIDAN MIR Admission Status: ER Accout number: [id number] Admission Date: 11-29-2019 : 1950 Admission Diagnosis:SHORTNESS OF BREATH Attending: ANA MARÍA ESCALONA Current LOS: 3 Anticipated DC Date: Planned Disposition: Home Primary Insurance: MEDICARE A & B Discharge Planning Comments: CM met with patient to complete initial dc planning assessment. CM educated patient on the CM role and verbal consent given by patient to complete assessment. Patient lives at home with her adult grand daughter, Tara. At discharge patient plans to return and feels this is a safe discharge. CM discussed availability of home health, rehab services, and medical equipment. Patient denied known discharge needs at this time. States either her family will take her home or she has money for a cab and can call a cab. CM will continue to follow and will assist as needed with dc plans/needs. Compliance Tester: Amparo Lynn DCPIA - Discharge Planning Initial Assessment Updated by [email or web address]: Amparo Lynn on 12/02/19 4:53 pm * Is the patient Alert and Oriented? Yes * How many steps to enter\exit or inside your home? 1/0 * PCP Dr. Su * [facility] * Preadmission Environment Home with Family * ADLs Partial Dependent * Partial ADLs (Assistance needed) Bathing * Equipment Cane Walker * Other Equipment Walker with a seat and standard walker * List name and contact numbers for known caregivers / representatives who currently or will assist patient after discharge: Tara Stock - grand daughter - Cell - [phone] or home - [phone] Anand Suero - [phone] Marisela Ambrose - DTR - [phone] or [phone] * Verbal permission to speak to the caregivers and representatives has been obtained from the patient. Yes * Community resources currently utilized None * Additional services required to return to the preadmission environment? No * Can the patient safely return to the preadmission environment? Yes * Has this patient been hospitalized within the prior 30 days at any hospital? No Coverage Notice Reviewer: [email or web address] Rosangela Lynn Notice Issued Date-Time: 12/02/2019 16:48 Notice Type: IM Discharge Notice Notice Delivered To: Patient Relationship to Patient: Self Manuscripts Archivist Name: Delivery Method: HAND - Hand Delivered Ernestina Days: Prior Verbal Notification: Recipient Understood Notice: Yes Recipient Signature: Yes Med Rec Note Co-signed by Attending: Coverage Notice Comment: IMM explained, signed, given, copy placed in MR Last DP export: 12/02/19 3:51 p Patient Name: SHERIDAN MIR Page [id number] at 1657 All edits/amendments must be made on the electronic document DICTATION DATE: 12/02/191656 MORTGAGE PROFESSIONAL: JUAN RAMON 12/02/191656 RPT#: [id number] DC DATE: STATUS: ADM IN [facility] [address] [place] [address] END OF REPORT
--- NOTE | 2019-12-02 17:47 | NUR ---
IV AND TELEMETRY DCD. DC PLANS GIVEN. UNDAERSTANDING VOICED. ESCORTED TO CAR BY W/C.
--- NOTE | 2019-12-03 08:12 | MORECARE ---
CASE MANAGEMENT DISCHARGE SUMMARY PATIENT: SHERIDAN MIR UNIT: [id number] ADM DATE: 11/29/19 AGE: 69 : 50 SEX: F ROOM/BED: D.9899 AUTHOR: CHEMO,DOC PHYSICIAN: REFERRING PHYSICIAN: ANA MARÍA ESCALONA MD DATE OF SERVICE: 12/03/19 Discharge Plan Patient Name: SHERIDAN MIR Facility: [facility]:[place] : 1950 Planned Disposition: Home Anticipated Discharge Date: Discharge Date: 12/02/2019 Expected LOS: Initial Reviewer: [email or web address] Initial Review Date: 12/02/2019 Generated: 12/03/19 9:12 am Comments DCP- Discharge Planning Updated by [email or web address]: Amparo Lynn on 12/02/19 3:[address] Patient Name: SHERIDAN MIR Admission Status: ER Accout number: [id number] Admission Date: 11-29-2019 : 1950 Admission Diagnosis:SHORTNESS OF BREATH Attending: ANA MARÍA ESCALONA Current LOS: 3 Anticipated DC Date: Planned Disposition: Home Primary Insurance: MEDICARE A & B Discharge Planning Comments: CM met with patient to complete initial dc planning assessment. CM educated patient on the CM role and verbal consent given by patient to complete assessment. Patient lives at home with her adult grand daughter, Tara. At discharge patient plans to return and feels this is a safe discharge. CM discussed availability of home health, rehab services, and medical equipment. Patient denied known discharge needs at this time. States either her family will take her home or she has money for a cab and can call a cab. CM will continue to follow and will assist as needed with dc plans/needs. Reimbursement Spec: Amparo Lynn DCPIA - Discharge Planning Initial Assessment Updated by [email or web address]: Amparo Lynn on 12/02/19 4:53 pm * Is the patient Alert and Oriented? Yes * How many steps to enter\exit or inside your home? 1/0 * PCP Dr. Su * [facility] * Preadmission Environment Home with Family * ADLs Partial Dependent * Partial ADLs (Assistance needed) Bathing * Equipment Cane Walker * Other Equipment Walker with a seat and standard walker * List name and contact numbers for known caregivers / representatives who currently or will assist patient after discharge: Tara Stock - grand daughter - Cell - [phone] or home - [phone] Anand Suero - [phone] Marisela Ambrose - DTR - [phone] or [phone] * Verbal permission to speak to the caregivers and representatives has been obtained from the patient. Yes * Community resources currently utilized None * Additional services required to return to the preadmission environment? No * Can the patient safely return to the preadmission environment? Yes * Has this patient been hospitalized within the prior 30 days at any hospital? No Coverage Notice Reviewer: [id number] Rosangela Lynn Notice Issued Date-Time: 12/02/2019 16:48 Notice Type: IM Discharge Notice Notice Delivered To: Patient Relationship to Patient: Self Tearoom Host Name: Delivery Method: HAND - Hand Delivered Ernestina Days: Prior Verbal Notification: Recipient Understood Notice: Yes Recipient Signature: Yes Med Rec Note Co-signed by Attending: Coverage Notice Comment: IMM explained, signed, given, copy placed in MR Last DP export: 12/02/19 3:58 p Patient Name: SHERIDAN MIR Page [id number] at 0812 All edits/amendments must be made on the electronic document DICTATION DATE: 12/03/19811 SUPERVISING FILM OR VIDEOTAPE EDITOR: JUAN RAMON 12/03/19811 RPT#: [id number] DC DATE:12/02/19 STATUS: DIS IN [facility] [address] [place] [address] END OF REPORT
== END 2019-12-02 17:48 | disposition home or self-care (01) | DRG 307 ==
LOC: D.ER 02:13 → D.M2 06:03 → OBSVTIME 06:03 → D.M2 13:36 → D.SDCHOLD 12-02 12:06 → D.M2 12-02 12:23
PROVIDERS: Family Medicine; Internal Medicine Hematology & Oncology; ADMIT Family Medicine; ATTEND Family Medicine
DX: I08.1 Rheumatic disorders of both mitral and tricuspid valves (principal); E87.1 Hypo-osmolality and hyponatremia; I50.40 Unspecified combined systolic (congestive) and diastolic (congestive) heart failure; J81.1 Chronic pulmonary edema; E83.42 Hypomagnesemia; I25.10 Atherosclerotic heart disease of native coronary artery without angina pectoris; D64.9 Anemia, unspecified; E78.5 Hyperlipidemia, unspecified; E03.9 Hypothyroidism, unspecified; K21.9 Gastro-esophageal reflux disease without esophagitis; F41.9 Anxiety disorder, unspecified; D72.819 Decreased white blood cell count, unspecified; D17.71 Benign lipomatous neoplasm of kidney; Z86.73 Personal history of transient ischemic attack (TIA), and cerebral infarction without residual deficits

== ENCOUNTER 2020-01-06 19:42 | Inpatient (IN) | payer MEDICARE, OTHER ==
[~2020-01-06] VITALS: Ht 152.4 cm; Wt 81.6 kg
--- NOTE | ~2020-01-06 | EC ---
PATIENT:SHERIDAN MIR DATE OF SERVICE: 01/07/20 SEX: F MEDICAL RECORD: [id number] DATE OF : [birth year] LOCATION:D.M2 D.212 AGE OF PATIENT: 69 ADMISSION DATE: 01/07/20 REFERRING PHYSICIAN: INTERPRETING PHYSICIAN: LEX MARTE MD ECHOCARDIOGRAM REPORT ECHO CHARGES 4 ECHO COMPLETE Date: 01/08/20 CLINICAL DIAGNOSIS: EVAL BEFORE SURGERY ECHOCARDIOGRAPHIC MEASUREMENTS (adult normal given) AC root (d.<3.7cm) 2.2 cm LV Septum d (<1.2 cm> 0.6 cm Valve Excursion 1.1 cm LV Septum (systole) 1.1 cm Left Atria (s.<4.0cm> 4.5 cm LVPW d(<1.2cm) 1.0 cm RV (d.<2.3cm) 3.1 cm LVPW (sytole) 1.1 cm LV diastole(<5.6CM) 6.6 cm MV E-F(>70mm/sec) cm LV systole 5.8 cm LVOT Diameter 1.7 cm MV exc.(>10mm) cm Est.ejection fraction (50-75%) % DOPPLER: LVIT cm/sec A 95 cm/sec E 114 cm/sec LA cm/sec RVSP 48.1 mmHg LVOT 92 cm/sec AOP1/2T m/s Asc. Ao 143 cm/sec RVOT 54 cm/sec RA cm/sec PA 75 cm/sec AV Gradient Peak 8.2 mmHg AV Mean 4.5 mmHg AV Area 1.7 cm MV Gradient Peak 9.4 mmHg MV Mean 3.6 mmHg MV Area cm COMMENTS: Fuse Coiler: Armida DAVEY Geophysical Support Specialist: Emil Marte TAPE# PACS Pericardial Effusion N DATE OF SERVICE: FINDINGS: 1. Left ventricle shows ejection fraction of 25-30% with dilated left ventricle. The anterior septum is akinetic. 2. Left atrium is severely dilated. 3. Aortic valve is normal. 4. Mitral valve shows severe centralized mitral regurgitation. 5. Tricuspid valve has moderate tricuspid regurgitation, RVSP of 48.1 mmHg. 6. The right ventricle is dilated. ECHOCARDIOGRAM REPORT [id number] SHERIDAN MIR 7. Pulmonic valve is not well visualized, but otherwise normal. 8. There is a trace effusion without tamponade. TRANSINT:[id number] Voice Confirmation ID: [id number] DOCUMENT ID: [id number] LEX MARTE MD CC: [id number] DICTATION DATE: 01/09/20 1038 BOAT TENDER: 01/09/20 1223 ADM IN [facility] [address] [place] [address]
[~2020-01-06 19:42] MED LIST changes: +ZYPREXA5 MG
[2020-01-06 20:27] LABS: BASOPHILS 0.5 % (0-2); EOSINOPHILS 1.7 % (0-7); HEMATOCRIT 32.8 % (36.0-48.0); HEMOGLOBIN 11.4 g/dL (12-16); IMMATURE GRANULOCYTES 0.2 % (0-5); LYMPHOCYTES 37.1 % (15-50); MCH 31.6 pg (26.0-34.0); MCHC 34.8 g/dL (31.0-37.0); MCV 90.9 fL (80.0-100.0); MEAN PLATELET VOLUME 9.1 fL (7.4-10.4); MONOCYTES 10.1 % (2-11); NEUTROPHILS 50.4 % (40-80); PLATELET COUNT 276 10x3/uL (130-400); RBC 3.61 10x6/uL (4.00-5.40); RDW 13.4 % (11.5-14.5); WBC 4.2 10x3/uL (4.8-10.8)
[2020-01-06 20:32] LABS: APTT 28.8 SECONDS (22.8-39.4); PROTIME 13.2 SECONDS (11.6-15.0)
[2020-01-06 20:45] VITALS: BP 105/74
[2020-01-06 20:47] LABS: ALBUMIN 4.2 g/dL (3.4-5.0); ALKALINE PHOSPHATASE 73 U/L (30-120); ALT (SGPT) 17 U/L (10-68); BILIRUBIN - TOTAL 0.38 mg/dL (0.2-1.3); CALC OSMOLALITY 262 mosm/kg (275-300); CALCIUM 9.6 mg/dL (8.5-10.1); CHLORIDE - SERUM 89 mmol/L (98-107); CKMB 0.6 U/L (0.0-3.6); CREATINE KINASE 55 UL (21-215); GLUCOSE 112 mg/dL (74-106); MAGNESIUM - SERUM 1.8 mg/dL (1.8-2.4); PROTEIN - SERUM 8.1 g/dL (6.4-8.2); SODIUM 127 mmol/L (136-145); UREA NITROGEN 33 mg/dL (7-18); eGFR NON AFRICAN AMERICAN 58 mL/min (90-120)
[2020-01-06 20:48] LABS: TROPONIN-I < 0.017 ng/mL (0.000-0.060)
[2020-01-06 20:50] LABS: POTASSIUM - SERUM 2.8 mmol/L (3.5-5.1)
[2020-01-06 22:25] VITALS: BP 123/78
--- NOTE | 2020-01-06 23:00 | NUR ---
PT RECEIVED FROM ER STAFF ALERT AND ORIENTED. HISTORY OF A HEART MURMUR AND 2 LEAKY VALVES, FOLLOWED BY A CAN CAPPER. HAS HAD 2 STENTS PLACED. COMPLAINS OF DULL CHEST PAIN AND PALPITATIONS. UP AD BRYN WITH CANE ASSIST.
[2020-01-07] VITALS (7 sets, daily range): BP systolic 110–125; BP diastolic 64–78; BMI 35.1
[2020-01-07 02:09] LABS: CKMB 0.8 U/L (0.0-3.6); CREATINE KINASE 64 UL (21-215); TROPONIN-I < 0.017 ng/mL (0.000-0.060)
[2020-01-07 09:32] LABS: HEMOGLOBIN 11.7 g/dL (12-16); MCH 31.1 pg (26.0-34.0); MCHC 34.4 g/dL (31.0-37.0); MCV 90.4 fL (80.0-100.0); MEAN PLATELET VOLUME 8.8 fL (7.4-10.4); PLATELET COUNT 253 10x3/uL (130-400); RBC 3.76 10x6/uL (4.00-5.40); RDW 13.4 % (11.5-14.5); WBC 3.4 10x3/uL (4.8-10.8)
[2020-01-07 09:49] LABS: CALC OSMOLALITY 274 mosm/kg (275-300); CALCIUM 9.6 mg/dL (8.5-10.1); CARBON DIOXIDE 27.4 mmol/L (21.0-32.0); CHLORIDE - SERUM 97 mmol/L (98-107); CKMB 0.9 U/L (0.0-3.6); CREATINE KINASE 58 UL (21-215); CREATININE - SERUM 0.9 mg/dL (0.6-1.3); GLUCOSE 104 mg/dL (74-106); POTASSIUM - SERUM 3.2 mmol/L (3.5-5.1); SODIUM 134 mmol/L (136-145); TROPONIN-I < 0.017 ng/mL (0.000-0.060); UREA NITROGEN 31 mg/dL (7-18); eGFR NON AFRICAN AMERICAN 66 mL/min (90-120)
[2020-01-07 10:11] LABS: EOSINOPHILS 2 % (0-7); LYMPHOCYTES 35 % (15-50); MONOCYTES 4 % (2-11); NEUTROPHILS 59 % (40-80)
[2020-01-07 10:12] LABS: PLATELET ESTIMATE NORMAL
--- NOTE | 2020-01-07 14:34 | MORECARE ---
CASE MANAGEMENT DISCHARGE SUMMARY PATIENT: SHERIDAN MIR UNIT: [id number] ADM DATE: 01/06/20 AGE: 69 : 50 SEX: F ROOM/BED: D.8140 AUTHOR: ASTRID MCLAIN PHYSICIAN: REFERRING PHYSICIAN: ISAAC LEROY MD DATE OF SERVICE: 01/07/20 Discharge Plan Patient Name: SHERIDAN MIR Facility: [facility]:[place] : 1950 Planned Disposition: Anticipated Discharge Date: Discharge Date: Expected LOS: Initial Reviewer: [email or web address] Initial Review Date: 01/07/2020 Generated: 01/07/20 3:33 pm Patient Name: SHERIDAN MIR Page 11332 at 1434 All edits/amendments must be made on the electronic document DICTATION DATE: 01/07/20 143 BRANCH MANAGER: JUAN RAMON 01/07/20 1433 RPT#: [id number] DC DATE: STATUS: ADM IN [facility] [address] [place] [address] END OF REPORT
[2020-01-07 14:35] LABS: CKMB 1.8 U/L (0.0-3.6); CREATINE KINASE 57 UL (21-215)
[2020-01-07 14:36] LABS: TROPONIN-I < 0.017 ng/mL (0.000-0.060)
--- NOTE | 2020-01-07 14:42 | MORECARE ---
CASE MANAGEMENT DISCHARGE SUMMARY PATIENT: SHERIDAN MIR UNIT: [id number] ADM DATE: 01/06/20 AGE: 69 : 50 SEX: F ROOM/BED: D.9968 AUTHOR: ASTRID MCLAIN PHYSICIAN: REFERRING PHYSICIAN: ISAAC LEROY MD DATE OF SERVICE: 01/07/20 Discharge Plan Patient Name: SHERIDAN MIR [facility] : 1950 Planned Disposition: Anticipated Discharge Date: Discharge Date: Expected LOS: Initial Reviewer: [email or web address] Initial Review Date: 01/07/2020 Generated: 01/07/20 3:41 pm Comments DCP- Discharge Planning Updated by [email or web address]: Alie Dao on 01/07/20 1:[address] CM instructed to contact an oral surgeon for consult related to abstracting patient's teeth. GEM called and spoke with Janice Umanzor in administration to find out what oral surgeon has privileges to hospital. Janice instructed CM to call Dr. Reji Sorto, DMD. States he is the only one that will come to the hospital. GEM called Dr. Sorto's office. Spoke with workers' compensation claims examiner that informed CM that Dr. Sorto is on vacation this week. States she will have forest officer call CM back tomorrow when she returns to work about referral. CM informed Alie Brown CM on status of consult. Last DP export: 01/07/20 1:34 p Patient Name: SHERIDAN MIR Page [id number] at 1442 All edits/amendments must be made on the electronic document DICTATION DATE: 01/07/20 1441 BAG MAKING MACHINE OPERATOR: JUAN RAMON 01/07/20 1441 RPT#: [id number] DC DATE: STATUS: ADM IN [facility] [address] [place] [address] END OF REPORT
--- NOTE | 2020-01-07 15:44 | NUR ---
STATES SHE FEELS JARETT LIKE SHE CANT BREATH. 02 2L NC APPLIED. WILL MONITOR.
--- NOTE | 2020-01-07 15:49 | MORECARE ---
CASE MANAGEMENT DISCHARGE SUMMARY PATIENT: SHERIDAN MIR UNIT: [id number] ADM DATE: 01/06/20 AGE: 69 : 50 SEX: F ROOM/BED: D.4440 AUTHOR: CHEMO,DOC PHYSICIAN: REFERRING PHYSICIAN: ISAAC LEROY MD DATE OF SERVICE: 01/07/20 Discharge Plan Patient Name: SHERIDAN MIR Facility: [facility]:[place] : 1950 Planned Disposition: Anticipated Discharge Date: Discharge Date: Expected LOS: Initial Reviewer: [email or web address] Initial Review Date: 01/07/2020 Generated: 01/07/20 4:49 pm Comments DCP- Discharge Planning Updated by [email or web address]: Alie Brown on 01/07/20 2:[address] Patient Name: SHERIDAN MIR Encounter No: [id number] : 1950 Primary Insurance: MEDICARE A & B Anticipated DC Date: Planned Disposition: External Planned Provider: : DCP follow-up note: CM instructed to make pt an appointment with a dentist to extract her teeth. CM called [facility] at [phone] and spoke with Aissatou who reported the patient was there on 12/18/19 but has not had a follow up appointment scheduled for those extractions. CM asked when the next available appointment was. Aissatou states it is Sunday01/12/20 at 0830 and she has scheduled the patient for that appointment. Aissatou states she will need medical clearance to be able to extract the teeth. GEM updated Stella Brown DCP- Discharge Planning Updated by [email or web address]: Alie Dao on 01/07/20 1:[address] CM instructed to contact an oral surgeon for consult related to abstracting patient's teeth. CM called and spoke with Janice Umanzor in administration to find out what oral surgeon has privileges to hospital. Janice instructed CM to call Dr. Reji Sorto, DMD. States he is the only one that will come to the hospital. CM called Dr. Sorto's office. Spoke with office secretary that informed CM that Dr. Sorto is on vacation this week. States she will have ground defence officer call CM back tomorrow when she returns to work about referral. CM informed Alie Brown CM on status of consult. Last DP export: 01/07/20 1:42 p Patient Name: SHERIDAN MIR Page [id number] at 1549 All edits/amendments must be made on the electronic document DICTATION DATE: 01/07/201548 ELECTROSTATIC PAINTER: JUAN RAMON 01/07/20 1549 RPT#: [id number] DC DATE: STATUS: ADM IN [facility] [address] [place] [address] END OF REPORT
[2020-01-08 04:00] VITALS: BP 105/62
[2020-01-08 05:03] LABS: BASOPHILS 0.6 % (0-2); EOSINOPHILS 3.3 % (0-7); HEMATOCRIT 32.1 % (36.0-48.0); HEMOGLOBIN 10.6 g/dL (12-16); IMMATURE GRANULOCYTES 0.3 % (0-5); LYMPHOCYTES 33.7 % (15-50); MCH 30.7 pg (26.0-34.0); MEAN PLATELET VOLUME 9.2 fL (7.4-10.4); MONOCYTES 8.8 % (2-11); NEUTROPHILS 53.3 % (40-80); PLATELET COUNT 230 10x3/uL (130-400); RBC 3.45 10x6/uL (4.00-5.40); RDW 13.7 % (11.5-14.5); WBC 3.3 10x3/uL (4.8-10.8)
[2020-01-08 05:51] LABS: ALBUMIN 3.8 g/dL (3.4-5.0); BILIRUBIN - TOTAL 0.38 mg/dL (0.2-1.3); CALCIUM 9.1 mg/dL (8.5-10.1); CARBON DIOXIDE 25.4 mmol/L (21.0-32.0); POTASSIUM - SERUM 3.4 mmol/L (3.5-5.1); PROTEIN - SERUM 7.3 g/dL (6.4-8.2)
[2020-01-08 09:00] VITALS: BP 126/78
--- NOTE | 2020-01-08 09:27 | NUR ---
UP AMBULATING WITH PT ASSIST.
[2020-01-08 11:00] VITALS: BP 126/68
[2020-01-08 15:37] VITALS: Ht 152.4 cm; Wt 81.6 kg
--- NOTE | 2020-01-08 15:48 | MORECARE ---
CASE MANAGEMENT DISCHARGE SUMMARY PATIENT: SHERIDAN MIR UNIT: [id number] ADM DATE: 01/07/20 AGE: 69 : 50 SEX: F ROOM/BED: D.4120 AUTHOR: CHEMO,DOC PHYSICIAN: REFERRING PHYSICIAN: ISAAC LEROY MD DATE OF SERVICE: 01/08/20 Discharge Plan Patient Name: SHERIDAN MIR Facility: [facility]:[place] : 1950 Planned Disposition: Anticipated Discharge Date: Discharge Date: Expected LOS: Initial Reviewer: [email or web address] Initial Review Date: 01/07/2020 Generated: 01/08/20 4:48 pm Comments DCP- Discharge Planning Updated by [email or web address]: Alie Brown on 01/08/20 2:[address] CM ATTMPTED TO CALL [facility] AT [phone] TO VERIFY DENTAL APPOINTMENT FOR SUNDAY. CM LEFT MESSAGE FOR SOME TO CALL BACK. CM FAXED CLINICALS AND CARDIOLOGY MEDICAL CLEARANCE TO [facility] AT [phone]. DCP- Discharge Planning Updated by [email or web address]: Alie Brown on 01/07/20 2:[address] Patient Name: SHERIDAN MIR Encounter No: [id number] : 1950 Primary Insurance: MEDICARE A & B Anticipated DC Date: Planned Disposition: External Planned Provider: : DCP follow-up note: CM instructed to make pt an appointment with a dentist to extract her teeth. CM called [facility] at [phone] and spoke with Sonu who reported the patient was there on 12/18/19 but has not had a follow up appointment scheduled for those extractions. GEM asked when the next available appointment was. Sonu states it is Sunday01/12/20 at 0830 and she has scheduled the patient for that appointment. Sonu states she will need medical clearance to be able to extract the teeth. GEM updated Stella Brown DCP- Discharge Planning Updated by [email or web address]: Alie Dao on 01/07/20 1:[address] CM instructed to contact an oral surgeon for consult related to abstracting patient's teeth. CM called and spoke with Janice Umanzor in administration to find out what oral surgeon has privileges to hospital. Janice instructed CM to call Dr. Reji Sorto DMD. States he is the only one that will come to the hospital. GEM called Dr. Sorto's office. Spoke with ward secretary that informed CM that Dr. Sorto is on vacation this week. States she will have special assets officer call CM back tomorrow when she returns to work about referral. CM informed Alie Brown CM on status of consult. Last DP export: 01/07/20 2:49 p Patient Name: SHERIDAN MIR Page [id number] at 1548 All edits/amendments must be made on the electronic document DICTATION DATE: 01/08/201547 HEAD OF PRODUCT: JUAN RAMON 01/08/201547 RPT#: [id number] DC DATE: STATUS: ADM IN [facility] [address] [place] [address] END OF REPORT
--- NOTE | 2020-01-08 15:56 | MORECARE ---
CASE MANAGEMENT DISCHARGE SUMMARY PATIENT: SHERIDAN MIR UNIT: [id number] ADM DATE: 01/07/20 AGE: 69 : 50 SEX: F ROOM/BED: D.1842 AUTHOR: CHEMO,DOC PHYSICIAN: REFERRING PHYSICIAN: ISAAC LEROY MD DATE OF SERVICE: 01/08/20 Discharge Plan Patient Name: SHERIDAN MIR Facility: [facility]:[place] : 1950 Planned Disposition: Anticipated Discharge Date: Discharge Date: Expected LOS: Initial Reviewer: [email or web address] Initial Review Date: 01/07/2020 Generated: 01/08/20 4:56 pm DCP- Discharge Planning Updated by [email or web address]: Alie Brown on 01/08/20 2:[address] CM ATTMPTED TO CALL [facility] AT [phone] TO VERIFY DENTAL APPOINTMENT FOR SUNDAY. CM LEFT MESSAGE FOR SOME TO CALL BACK. CM FAXED CLINICALS AND CARDIOLOGY MEDICAL CLEARANCE TO [facility] AT [phone]. DCP- Discharge Planning Updated by [email or web address]: Alie Brown on 01/07/20 2:[address] Patient Name: SHERIDAN MIR Encounter No: [id number] : 1950 Primary Insurance: MEDICARE A & B Anticipated DC Date: Planned Disposition: External Planned Provider: : DCP follow-up note: CM instructed to make pt an appointment with a dentist to extract her teeth. CM called [facility] at [phone] and spoke with oSnu who reported the patient was there on 12/18/19 but has not had a follow up appointment scheduled for those extractions. GEM asked when the next available appointment was. Sonu states it is Sunday01/12/20 at 0830 and she has scheduled the patient for that appointment. Sonu states she will need medical clearance to be able to extract the teeth. GEM updated Stella Brown DCP- Discharge Planning Updated by [email or web address]: Alie Dao on 01/07/20 1:[address] CM instructed to contact an oral surgeon for consult related to abstracting patient's teeth. CM called and spoke with Janice Umanzor in administration to find out what oral surgeon has privileges to hospital. Janice instructed CM to call Dr. Reji Sorto DMD. States he is the only one that will come to the hospital. GEM called Dr. Sorto's office. Spoke with medical secretary teacher that informed CM that Dr. Sorto is on vacation this week. States she will have chief innovation officer call CM back tomorrow when she returns to work about referral. GEM informed Alie Brown CM on status of consult. Last DP export: 01/08/20 2:48 p Patient Name: SHERIDAN MIR Page 57575 at 1556 All edits/amendments must be made on the electronic document DICTATION DATE: 01/08/201555 RADIATION PROTECTION ENGINEER: JUAN RAMON 01/08/201555 RPT#: [id number] DC DATE: STATUS: ADM IN [facility] [address] [place] [address] END OF REPORT
--- NOTE | 2020-01-08 16:06 | MORECARE ---
CASE MANAGEMENT DISCHARGE SUMMARY PATIENT: SHERIDAN MIR UNIT: [id number] ADM DATE: 01/07/20 AGE: 69 : 50 SEX: F ROOM/BED: D.3215 AUTHOR: CHEMO,DOC PHYSICIAN: REFERRING PHYSICIAN: ISAAC LEROY MD DATE OF SERVICE: 01/08/20 Discharge Plan Patient Name: SHERIDAN MIR Facility: [facility]:[place] : 1950 Planned Disposition: Anticipated Discharge Date: Discharge Date: Expected LOS: Initial Reviewer: [email or web address] Initial Review Date: 01/07/2020 Generated: 01/08/20 5:06 pm DCP- Discharge Planning Updated by [email or web address]: lAie Brown on 01/08/20 2:[address] CM ATTMPTED TO CALL [facility] AT [phone] TO VERIFY DENTAL APPOINTMENT FOR SUNDAY. CM LEFT MESSAGE FOR SOME TO CALL BACK. CM FAXED CLINICALS AND CARDIOLOGY MEDICAL CLEARANCE TO [facility] AT [phone]. DCP- Discharge Planning Updated by [email or web address]: Alie Brown on 01/07/20 2:[address] Patient Name: SHERIDAN MIR Encounter No: [id number] : 1950 Primary Insurance: MEDICARE A & B Anticipated DC Date: Planned Disposition: External Planned Provider: : DCP follow-up note: CM instructed to make pt an appointment with a dentist to extract her teeth. CM called [facility] at [phone] and spoke with Sonu who reported the patient was there on 12/18/19 but has not had a follow up appointment scheduled for those extractions. GEM asked when the next available appointment was. Sonu states it is Sunday01/12/20 at 0830 and she has scheduled the patient for that appointment. Sonu states she will need medical clearance to be able to extract the teeth. GEM updated Stella Brown DCP- Discharge Planning Updated by [email or web address]: Alie Dao on 01/07/20 1:[address] CM instructed to contact an oral surgeon for consult related to abstracting patient's teeth. CM called and spoke with Janice Umanzor in administration to find out what oral surgeon has privileges to hospital. Janice instructed CM to call Dr. Reji Sorto DMD. States he is the only one that will come to the hospital. GEM called Dr. Sorto's office. Spoke with guidance secretary that informed CM that Dr. Sorto is on vacation this week. States she will have submarine advisory team watch officer call CM back tomorrow when she returns to work about referral. GEM informed Alie Brown CM on status of consult. Last DP export: 01/08/20 2:56 p Patient Name: SHERIDAN MIR Page 19855 at 1606 All edits/amendments must be made on the electronic document DICTATION DATE: 01/08/20 160 AIR QUALITY SPECIALIST: JUAN RAMON 01/08/201605 RPT#: [id number] DC DATE: STATUS: ADM IN [facility] [address] [place] [address] END OF REPORT
--- NOTE | 2020-01-08 16:10 | NUR ---
GEM SPOKE WITH SOLEDAD AT DR CASH'S OFFICE AT [phone] ABOUT REFERRAL. SOLEDAD STATES SHE WILL GIVE THE PT INFORMATION TO THE AND CALL BACK AND SPEAK WITH TESFAYE RABAGO.
--- NOTE | 2020-01-08 19:00 | NUR ---
RECEIVED BEDSIDE REPORT. PATIENT IS ALERT AND ORIENTED, RESTING COMFORTABLY IN BED. RESPIRATIONS ARE EVEN AND UNLABORED. NO S/S OF DISTRESS. NO C/O PAIN. CALL LIGHT WITHIN REACH. WILL CPOC.
[2020-01-08 20:00] VITALS: BP 126/78
[2020-01-09] VITALS: BP 109/63
[2020-01-09 04:00] VITALS: BP 110/70
[2020-01-09 06:54] LABS: BASOPHILS 0.3 % (0-2); HEMATOCRIT 34.1 % (36.0-48.0); HEMOGLOBIN 11.4 g/dL (12-16); IMMATURE GRANULOCYTES 0.3 % (0-5); LYMPHOCYTES 27.4 % (15-50); MCH 31.1 pg (26.0-34.0); MCHC 33.4 g/dL (31.0-37.0); MCV 92.9 fL (80.0-100.0); MEAN PLATELET VOLUME 9.2 fL (7.4-10.4); MONOCYTES 6.1 % (2-11); NEUTROPHILS 63.9 % (40-80); PLATELET COUNT 279 10x3/uL (130-400); RBC 3.67 10x6/uL (4.00-5.40); RDW 13.6 % (11.5-14.5); WBC 3.9 10x3/uL (4.8-10.8)
[2020-01-09 07:37] LABS: ALBUMIN 4.3 g/dL (3.4-5.0); ALKALINE PHOSPHATASE 71 U/L (30-120); ALT (SGPT) 13 U/L (10-68); BILIRUBIN - TOTAL 0.36 mg/dL (0.2-1.3); CALC OSMOLALITY 270 mosm/kg (275-300); CALCIUM 9.7 mg/dL (8.5-10.1); CARBON DIOXIDE 27.9 mmol/L (21.0-32.0); CHLORIDE - SERUM 97 mmol/L (98-107); CREATININE - SERUM 0.8 mg/dL (0.6-1.3); GLUCOSE 95 mg/dL (74-106); MAGNESIUM - SERUM 2.1 mg/dL (1.8-2.4); POTASSIUM - SERUM 4.3 mmol/L (3.5-5.1); PROTEIN - SERUM 7.7 g/dL (6.4-8.2); SODIUM 132 mmol/L (136-145); UREA NITROGEN 30 mg/dL (7-18); eGFR NON AFRICAN AMERICAN 75 mL/min (90-120)
[2020-01-09 08:00] VITALS: BP 123/84
--- NOTE | 2020-01-09 08:37 | NUR ---
PT WANTING HOME MEDS RELOOKED AT BECAUSE SHE HASN'T BEEN GETTING SYNTHROID. SPOKE WITH CHRIS PEREIRA AND SHE STATES SHE WILL LOOK AT HOMEMED LIST. I VERBALIZED UNDERSTANDING.
--- NOTE | 2020-01-09 09:00 | NUR ---
PT DID SELF ORAL CARE.
--- NOTE | 2020-01-09 09:33 | NUR ---
I have reviewed this patient and I concur with the Shift Assessment completed by the Licensed Practical Nurse today this shift.
[2020-01-09 11:00] VITALS: BP 126/75
--- NOTE | 2020-01-09 11:57 | MORECARE ---
CASE MANAGEMENT DISCHARGE SUMMARY PATIENT: SHERIDAN MIR UNIT: [id number] ADM DATE: 01/07/20 AGE: 69 : 50 SEX: F ROOM/BED: D.1858 AUTHOR: CHEMO,DOC PHYSICIAN: REFERRING PHYSICIAN: ISAAC LEROY MD DATE OF SERVICE: 01/09/20 Discharge Plan Patient Name: SHERIDAN MIR Facility: [facility] : 1950 Planned Disposition: Anticipated Discharge Date: Discharge Date: Expected LOS: Initial Reviewer: [email or web address] Initial Review Date: 01/07/2020 Generated: 01/09/20 12:57 pm Comments DCP- Discharge Planning Updated by [email or web address]: Alie Brown on 01/09/20 10:[address] CM called Dr. Wong's at [phone] office to follow up with referral. The office is closed today. DCP- Discharge Planning Updated by [email or web address]: Alie Brown on 01/08/20 2:[address] CM ATTMPTED TO CALL [facility] AT [phone] TO VERIFY DENTAL APPOINTMENT FOR SUNDAY. CM LEFT MESSAGE FOR SOME TO CALL BACK. CM FAXED CLINICALS AND CARDIOLOGY MEDICAL CLEARANCE TO SONU AT [phone]. DCP- Discharge Planning Updated by [email or web address]: Alie Brown on 01/07/20 2:[address] Patient Name: SHERIDAN MIR Encounter No: [id number] : 1950 Primary Insurance: MEDICARE A & B Anticipated DC Date: Planned Disposition: External Planned Provider: : DCP follow-up note: CM instructed to make pt an appointment with a dentist to extract her teeth. GEM called [facility] at [phone] and spoke with Sonu who reported the patient was there on 12/18/19 but has not had a follow up appointment scheduled for those extractions. GEM asked when the next available appointment was. Sonu states it is Sunday01/12/20 at 0830 and she has scheduled the patient for that appointment. Sonu states she will need medical clearance to be able to extract the teeth. GEM updated Stella Brown DCP- Discharge Planning Updated by [email or web address]: Alie Dao on 01/07/20 1:[address] CM instructed to contact an oral surgeon for consult related to abstracting patient's teeth. CM called and spoke with Janice Umanzor in administration to find out what oral surgeon has privileges to hospital. Janice instructed CM to call Dr. Reji Sorto DMD. States he is the only one that will come to the hospital. CM called Dr. Sorto's office. Spoke with unit secretary that informed CM that Dr. Sorto is on vacation this week. States she will have chief legal officer call CM back tomorrow when she returns to work about referral. CM informed Alie Brown CM on status of consult. Last DP export: 01/08/20 3:06 p Patient Name: SHERIDAN MIR Page [phone] at 1157 All edits/amendments must be made on the electronic document DICTATION DATE: 01/09/20 1157 MACHINE QUILT STUFFER: JUAN RAMON 01/09/20 1157 RPT#: [id number] DC DATE: STATUS: ADM IN [facility] [address] [place] [address] END OF REPORT
--- NOTE | 2020-01-09 13:30 | NUR ---
Nutrition Follow-up: Ate well this AM (~100%). Diet: Cardiac Wt: 180# (01/06) No BMs recorded Labs noted: Na 132 Meds noted: HCTZ, Lasix, Protonix, electrolyte protocol -Encourage PO intake and honor food preferences within diet restrictions. -Monitor wt. -RD following.
--- NOTE | 2020-01-09 14:11 | NUR ---
DISCHARGE INSTUCTIONS GIVEN TO PT AND TEACHING DONE. ALL QUESTIONS ANSWERED. CHART COPY SIGNED. TELEMETRY DC'D AND RETURNED TO PARCEL WRAPPER. PT HAS NO IV. PT STATES SHE IS TRYING TO FIND A RIDE SHE STATES HER DAUGHTER DOESN'T GET OFF TILL 1700. I VERBALIZED UNDERSTANDING AND STATED TO HER TO LET ME KNOW IF SHE CAN FIND A RIDE HOME. PT VERBALIZED UNDERSTANDING.
--- NOTE | 2020-01-09 16:30 | NUR ---
PT LEFT VIA WC WITH ALL BELONGINGS AND TAKEN OUT BY IT SUPPORT SPECIALIST AND LEFT WITH HER RIDE.
--- NOTE | 2020-01-10 15:03 | MORECARE ---
CASE MANAGEMENT DISCHARGE SUMMARY PATIENT: SHERIDAN MIR UNIT: [id number] ADM DATE: 01/07/20 AGE: 69 : 50 SEX: F ROOM/BED: D.2080 AUTHOR: CHEMO,DOC PHYSICIAN: REFERRING PHYSICIAN: ISAAC LEROY MD DATE OF SERVICE: 01/10/20 Discharge Plan Patient Name: SHERIDAN MIR Facility: [facility]:[place] : 1950 Planned Disposition: Anticipated Discharge Date: Discharge Date: 01/09/2020 Expected LOS: Initial Reviewer: [email or web address] Initial Review Date: 01/07/2020 Generated: 01/10/20 4:03 pm Comments DCP- Discharge Planning Updated by [email or web address]: Alie Brown on 01/09/20 10:[address] CM called Dr. oWng's at [phone] office to follow up with referral. The office is closed today. DCP- Discharge Planning Updated by [email or web address]: Alie Brown on 01/08/20 2:[address] CM [facility] AT [phone] TO VERIFY DENTAL APPOINTMENT FOR SUNDAY. CM LEFT MESSAGE FOR SOME TO CALL BACK. CM FAXED CLINICALS AND CARDIOLOGY MEDICAL CLEARANCE TO [facility] AT [phone]. DCP- Discharge Planning Updated by [email or web address]: Alie Brown on 01/07/20 2:[address] Patient Name: SHERIDAN MIR Encounter No: [id number] : 1950 Primary Insurance: MEDICARE A & B Anticipated DC Date: Planned Disposition: External Planned Provider: : DCP follow-up note: CM instructed to make pt an appointment with a dentist to extract her teeth. GEM called [facility] at [phone] and spoke with Sonu who reported the patient was there on 12/18/19 but has not had a follow up appointment scheduled for those extractions. GEM asked when the next available appointment was. Sonu states it is Sunday01/12/20 at 0830 and she has scheduled the patient for that appointment. Sonu states she will need medical clearance to be able to extract the teeth. GEM updated Stella Brown DCP- Discharge Planning Updated by [email or web address]: Alie Dao on 01/07/20 1:[address] CM instructed to contact an oral surgeon for consult related to abstracting patient's teeth. GEM called and spoke with Jancie Umanzor in administration to find out what oral surgeon has privileges to hospital. Janice instructed CM to call Dr. Reji Sorto DMD. States he is the only one that will come to the hospital. GEM called Dr. Sorto's office. Spoke with obstetrician gynecologist that informed CM that Dr. Sorto is on vacation this week. States she will have enforcement officer call GEM back tomorrow when she returns to work about referral. CM informed Alie Brown CM on status of consult. Last DP export: 01/09/20 10:57 a Patient Name: SHERIDAN MIR Page [phone] at 1503 All edits/amendments must be made on the electronic document DICTATION DATE: 01/10/20 1503 COMPUTER SECURITY SPECIALIST: JUAN RAMON 01/10/20 1503 RPT#: [id number] DC DATE:01/09/20 STATUS: DIS IN [facility] [address] [place] [address] END OF REPORT
== END 2020-01-09 16:31 | disposition home or self-care (01) | DRG 307 ==
LOC: D.ER 19:42 → D.M2 20:49 → OBSVTIME 20:49 → D.M2 20:49
PROVIDERS: Family Medicine; ADMIT Emergency Medicine; ATTEND Emergency Medicine
DX: I08.1 Rheumatic disorders of both mitral and tricuspid valves (principal); I25.110 Atherosclerotic heart disease of native coronary artery with unstable angina pectoris; I11.0 Hypertensive heart disease with heart failure; I50.9 Heart failure, unspecified; E87.6 Hypokalemia; D64.9 Anemia, unspecified; F41.9 Anxiety disorder, unspecified; K21.9 Gastro-esophageal reflux disease without esophagitis; J45.909 Unspecified asthma, uncomplicated; K04.7 Periapical abscess without sinus; Z86.73 Personal history of transient ischemic attack (TIA), and cerebral infarction without residual deficits

== ENCOUNTER → 2020-02-12 09:42 | Outpatient (CLI) | payer MEDICARE, OTHER ==
[2020-01-08 15:37] VITALS: BMI 35.1
== END | disposition home or self-care (01) ==
LOC: D.LAB 09:42
PROVIDERS: ATTEND Nurse Practitioner Family
DX: M81.0 Age-related osteoporosis without current pathological fracture (principal)

== ENCOUNTER 2020-03-09 18:36 | Inpatient (IN) | payer MEDICARE, OTHER ==
[~2020-03-09] VITALS: Ht 157.5 cm; Wt 81.6 kg
--- NOTE | 2020-03-09 20:20 | NUR ---
ADMIT TO PHYSICAL REHAB AND SERVICES OF DR LEROY. ARRIVED VIA WHEELCHAIR. ALERT AND ORIENTED. RESPIRATIONS UNLABORED. ORIENTED TO ROOM AND CALL LIGHT IN USE. SEE ADMISSION ASSESSMENT. NO DISTRESS NOTED.
[2020-03-09 21:48] VITALS: BP 142/88; BMI 35.2
[2020-03-09] MEDS ORDERED: SYSTANE NIGHTT3.5 GM EACH EYE (22:38)
--- NOTE | 2020-03-10 01:11 | NUR ---
RESTING QUIETLY WITH RESPIRATIONS UNLABORED. NO DISTRESS NOTED.
--- NOTE | 2020-03-10 03:13 | NUR ---
SLEEPING WITH RESPIRATIONS UNLABORED. NO DISTRESS NOTED.
--- NOTE | 2020-03-10 05:17 | NUR ---
QUIET HOURS. NO ACUTE CHANGES IN CONDITION. RESTING WITH NO DISTRESS NOTED.
[2020-03-10 06:33] LABS: BASOPHILS 0.3 % (0-2); EOSINOPHILS 3.3 % (0-7); HEMATOCRIT 34.4 % (36.0-48.0); HEMOGLOBIN 11.6 g/dL (12-16); IMMATURE GRANULOCYTES 0.3 % (0-5); LYMPHOCYTES 38.1 % (15-50); MCH 30.4 pg (26.0-34.0); MCHC 33.7 g/dL (31.0-37.0); MCV 90.3 fL (80.0-100.0); MEAN PLATELET VOLUME 9.3 fL (7.4-10.4); MONOCYTES 10.4 % (2-11); NEUTROPHILS 47.6 % (40-80); PLATELET COUNT 261 10x3/uL (130-400); RBC 3.81 10x6/uL (4.00-5.40)
[2020-03-10 06:42] LABS: ANION GAP 9.1 mmol/L (8-16); CALCIUM 9.6 mg/dL (8.5-10.1); CARBON DIOXIDE 29.9 mmol/L (21.0-32.0); CREATININE - SERUM 0.9 mg/dL (0.6-1.3)
[2020-03-10 08:00] VITALS: BP 134/86
--- NOTE | 2020-03-10 08:00 | NUR ---
SHE IS USING THE WHEELCHAIR TO USE THE BATHROOM. SHE HAS A SMALL DRESSING ON HER BACK, FROM HER SURGERY, CLEAN, DRY, INTACT. SHE IS SETTING UP IN THE WHEELCHAIR BRUSHING HER HAIR AND TEETH.
--- NOTE | 2020-03-10 11:30 | NUR ---
CHANGED THE DRESSING ON HER BACK. NO REDNESS, ONE SMALL INCISION SITE. BANDAID APPLIED.
[2020-03-10 13:40] VITALS: Ht 157.5 cm; Wt 81.6 kg
--- NOTE | 2020-03-10 13:51 | NUR ---
CARE TEAM MEETING: PATIENT IS NEW TO UNIT AND WILL BE RA AT NEXT MEETING. PATIENT PCP IS DR. OLIVIER. WILL CONTINUE TO FOLLOW WITH PATIENT.
[2020-03-10 19:08] VITALS: BP 125/74
--- NOTE | 2020-03-10 20:00 | NUR ---
PATIENT RECEIVED SITTING UP IN BED WATCHING TV. ASSESSMENT & VITAL SIGNS DONE. BED LOW. CALL LIGHT WITHIN REACH. WILL CONTINUE TO MONITOR.
--- NOTE | 2020-03-11 02:39 | NUR ---
PATIENT EYES CLOSED. RESPIRATIONS 18 & EVEN. ALARM ON. CALL LIGHT WITHIN REACH. WILL CONTINUE TO MONITOR.
--- NOTE | 2020-03-11 02:54 | NUR ---
PATIENT USED CALL LIGHT FOR ASSIST. PATIENT STANDBY ASSIST INTO & OUT OF WHEELCHAIR. STANDBY ASSIST ON & OFF COMMODE. VOID ONLY. BED LOW. ALARM ON. CALL LIGHT WITHIN REACH. WILL CONTINUE TO MONITOR.
--- NOTE | 2020-03-11 07:42 | NUR ---
SHE IS SETTING UP IN THE WHEELCHAIR. SHE HAS SOME SWALLOWING PROBLEMS, SHE STATES "I HAVEN'T HAD MY THROAT STRETCHED IN ABOUT A YEAR". SHE REQUIRES THE BIGGER PILLS TO GET BROKEN AND PUT IN PUDDING OR APPLESAUCE. THE CALL LIGHT IS WITHIN REACH.
[2020-03-11 07:58] VITALS: BP 124/71
--- NOTE | 2020-03-11 19:30 | NUR ---
RECEIVED SHIFT REPORT FROM DAY SHIFT
[2020-03-11 19:39] VITALS: BP 135/83
--- NOTE | 2020-03-11 20:40 | NUR ---
ASSESSMENT PER FLOW SHEET, PT REPORTS FLATUS, BM ON 03/07/20, AND VOIDING WITH NO DIFFICUTLY, PT RATES BACK AND HIP PAIN, WILL ADM PAIN MED WHEN DUE, INC TO LOWER BACK WITH BANDAID CDI WITH NO DRAINAGE NOTED, PT DENIES NEEDS AT THIS TIME, FALL PRECAUTIONS IN PLACE
--- NOTE | 2020-03-11 21:40 | NUR ---
ADM 2100 MEDS PER MD ORDERS, SEE EMAR, PT ALSO C/O HIP AND BACK PAIN, PT REQUESTED AND TRAMADOL AND TYLENOL PER MD ORDERS, SEE EMAR, PT DENIES FURTHER NEEDS
--- NOTE | 2020-03-11 23:15 | NUR ---
PT RESTING WITH EYES CLOSED, RESP QUIET, NO DISTRESS NOTED, LEFT UNDISTURBED AT THIS TIME, FALL PRECAUTIONS IN PLACE
--- NOTE | 2020-03-12 00:30 | NUR ---
WHILE IN ROOM WITH OTHER PT, PT REQUESTS TO GO TO BR, PT UP TO BR VIA WC WITH ASSISTANCE, VOIDED WITH NO DIFFICULTY, PT BACK TO BED, DENIES FURTHER NEEDS OR PAIN AT THIS TIME, FALL PRECAUTIONS IN PLACE
--- NOTE | 2020-03-12 01:38 | NUR ---
PT RESTING WITH EYES CLOSED, RESP QUIET, NO DISTRESS NOTED, LEFT UNDISTURBED AT THIS TIME, FALL PRECAUTIONS IN PLACE
--- NOTE | 2020-03-12 03:30 | NUR ---
PT RESTING WITH EYES CLOSED, RESP QUIET, NO DISTRESS NOTED, LEFT UNDISTURBED AT THIS TIME, FALL PRECAUTIONS IN PLACE
--- NOTE | 2020-03-12 05:50 | NUR ---
PT RESTING WITH EYES CLOSED, AROUSES TO SOFT VERBAL STIMULATION, ADM 0600 MEDS PO PER MD ORDERS, SEE EMAR, WITH FRESH H20, PT DENIES NEEDS AT THIS TIME
[2020-03-12 07:50] VITALS: BP 141/87
--- NOTE | 2020-03-12 07:59 | NUR ---
PATIENT IS ALERT/ORIENT. SITTING UP ON THE SIDE OF THE BED TO EAT BREAKFAST. CALL LIGHT WITHIN REACH. VOICES NO NEEDS AT THIS TIME.
[2020-03-12 09:35] LABS: HEMOGLOBIN 11.4 g/dL (12-16); MCH 29.9 pg (26.0-34.0); MCHC 32.6 g/dL (31.0-37.0); MCV 91.9 fL (80.0-100.0); MEAN PLATELET VOLUME 9.2 fL (7.4-10.4); PLATELET COUNT 285 10x3/uL (130-400); RBC 3.81 10x6/uL (4.00-5.40); RDW 13.1 % (11.5-14.5); WBC 2.3 10x3/uL (4.8-10.8)
[2020-03-12 09:51] LABS: ANION GAP 15.1 mmol/L (8-16); CALCIUM 9.5 mg/dL (8.5-10.1); CARBON DIOXIDE 29.8 mmol/L (21.0-32.0); CREATININE - SERUM 0.9 mg/dL (0.6-1.3); POTASSIUM - SERUM 3.9 mmol/L (3.5-5.1)
[2020-03-12 12:27] LABS: BASOPHILS 1 % (0-2); EOSINOPHILS 1 % (0-7); LYMPHOCYTES 35 % (15-50); MONOCYTES 10 % (2-11); NEUTROPHILS 53 % (40-80); PLATELET ESTIMATE NORMAL
--- NOTE | 2020-03-12 13:31 | NUR ---
Nutrition Follow-up: Diet: Regular PO intake: ~81% average x last 6 meals. She reports a good appetite but states that her appetite waivers with pain and constipation. Last BM: 03/11/20. Wt: 180# (03/10/20) Meds noted: santiago robertson, k-maynor, HCTZ. Labs reviewed. Recommend continue current diet. Will continue to honor food preferences. RD following.
--- NOTE | 2020-03-12 14:15 | NUR ---
PATIENT WORKING WITH OCCUPATIONAL THERAPIST IN REHAB ROOM. DENIES ANY PAIN/DISC AT THIS TIME.
[2020-03-12 19:47] VITALS: BP 111/66
--- NOTE | 2020-03-12 20:00 | NUR ---
PATIENT RECEIVED SITTING UP IN BED. ASSESSMENT & VITAL SIGNS DONE. NO C/O PAIN OR DISTRESS AT THIS TIME. BED LOW. CALL LIGHT WITHIN REACH. WILL CONTINUE TO MONITOR.
--- NOTE | 2020-03-13 02:32 | NUR ---
I have reviewed this patient and I concur with the Shift Assessment completed by the Licensed Practical Nurse today this shift.
--- NOTE | 2020-03-13 04:23 | NUR ---
PATIENT EYES CLOSED. RESPIRATIONS 18 & EVEN. BED LOW. ALARM ON. CALL LIGHT & BESIDE TABLE WITHION REACH. WILL CONTINUE TO MONITOR.
--- NOTE | 2020-03-13 08:00 | NUR ---
PT RESTING IN BED WITH EYES OPEN CALL LIGHT IN REACH WILL MONITER
[2020-03-13 11:11] VITALS: BP 115/73
--- NOTE | 2020-03-13 18:35 | NUR ---
PT UP IN CHAIR AT BEDSIDE CALL LIGHT IN REACH WILL MONITER
--- NOTE | 2020-03-13 19:57 | NUR ---
PATIENT RECEIVED SITTING ON COMMODE. PATIENT STANDBY ASSIST. ASSESSMENT & VITAL SIGNS DONE. NO C/O PAIN OR DISTRESS AT THIS TIME. ALARM ON. CALL LIGHT WITHIN REACH. WILL CONTINUE TO MONITOR.
[2020-03-13 20:00] VITALS: BP 157/79
--- NOTE | 2020-03-14 00:51 | NUR ---
I have reviewed this patient and I concur with the Shift Assessment completed by the Licensed Practical Nurse today this shift.
--- NOTE | 2020-03-14 02:13 | NUR ---
PATIENT EYES CLOSED. RESPIRATIONS 18 & EVEN. BED LOW. ALARM ON. CALL LIGHT WITHIN REACH. WILL CONTINUE TO MONITOR.
[2020-03-14 08:00] VITALS: BP 128/80
--- NOTE | 2020-03-14 10:06 | NUR ---
PATIENT SITTING UP IN WHEELCHAIR AT BEDSIDE WATCHING T.V. ALERT/ORIENT. CALL LIGHT WITHIN REACH. VOICES NO NEEDS AT THIS TIME.
--- NOTE | 2020-03-14 13:50 | NUR ---
PATIENT CONT OF B/B. HELPED INTO BATHROOM. STAND BY ASST
--- NOTE | 2020-03-14 19:18 | NUR ---
PT LYING IN BED PLAYING ON CELL PHONE. DENIES NEEDS AT THIS TIME. CL IN REACH. BED IN LOW SIDE RAILS X2. BED ALARM ON. RESP EVEN AND UNLABORED. INTRODUCED SELF TO PATIENT. A/O X4. WILL CONTINUE TO MONITOR.
[2020-03-14 19:49] VITALS: BP 107/62
--- NOTE | 2020-03-15 01:13 | NUR ---
I have reviewed this patient and I concur with the Shift Assessment completed by the Licensed Practical Nurse today this shift.
[2020-03-15 07:14] LABS: BASOPHILS 0.4 % (0-2); EOSINOPHILS 2.2 % (0-7); HEMATOCRIT 32.7 % (36.0-48.0); HEMOGLOBIN 10.8 g/dL (12-16); MCH 30.1 pg (26.0-34.0); MCV 91.1 fL (80.0-100.0); MEAN PLATELET VOLUME 9.2 fL (7.4-10.4); MONOCYTES 10.8 % (2-11); NEUTROPHILS 51.6 % (40-80); PLATELET COUNT 243 10x3/uL (130-400); RBC 3.59 10x6/uL (4.00-5.40); RDW 13.1 % (11.5-14.5); WBC 2.8 10x3/uL (4.8-10.8)
[2020-03-15 07:22] VITALS: BP 119/68
--- NOTE | 2020-03-15 07:22 | NUR ---
SHE IS ALERT, VS DONE. SHE IS IN BED, STATES " SHE FEELS FAINT" VS ARE STABLE. ASKING FOR A PAIN MED AND MUSCLE RELAXER. THE CALL LIGHT IS WITHIN REACH.
[2020-03-15 07:24] LABS: CALC OSMOLALITY 273 mosm/kg (275-300); CALCIUM 9.6 mg/dL (8.5-10.1); CARBON DIOXIDE 27.6 mmol/L (21.0-32.0); CHLORIDE - SERUM 100 mmol/L (98-107); CREATININE - SERUM 0.8 mg/dL (0.6-1.3); GLUCOSE 95 mg/dL (74-106); POTASSIUM - SERUM 4.2 mmol/L (3.5-5.1); SODIUM 135 mmol/L (136-145); UREA NITROGEN 23 mg/dL (7-18); eGFR NON AFRICAN AMERICAN 75 mL/min (90-120)
[2020-03-15 08:37] VITALS: BP 107/72
--- NOTE | 2020-03-15 08:37 | NUR ---
I WAS IN THE ROOM GIVING HER THE PAIN MEDICATIONS AND SHE SAYS SHE HAS CHEST PAIN. VS TAKEN, THEY ARE STABLE, EKG AND LAB WORK ORDRED AND EKG DONE. DR. LEROY IS HERE AND AWARE OF EVERYTHING. THE CALL LIGHT IS WITHIN REACH.
--- NOTE | 2020-03-15 09:44 | NUR ---
REMOVED THE BANDAID FROM HER BACK. THE 3 CM INCISION IS HEALING, NO REDNESS OR DRAINAGE. THE CALL LIGHT IS WITHIN REACH.
[2020-03-15 10:06] LABS: CKMB 0.7 U/L (0.0-3.6); CREATINE KINASE 33 UL (21-215); TROPONIN-I < 0.017 ng/mL (0.000-0.060)
[2020-03-15 14:47] LABS: CKMB 0.5 U/L (0.0-3.6); CREATINE KINASE 28 UL (21-215); TROPONIN-I 0.018 ng/mL (0.000-0.060)
[2020-03-15 19:26] VITALS: BP 113/61
--- NOTE | 2020-03-15 19:48 | NUR ---
PT IN BED WATCHING TV, NO NEEDS NOTED AT THIS TIME, RESPIRATIONS EVEN/UNLABORED, FALL PRECAUTIONS IN PLACE, FLUIDS/CALL LIGHT WITHIN REACH
--- NOTE | 2020-03-15 19:57 | NUR ---
PT IN BED WATCHING TV, NO NEEDS NOTED AT THIS TIME, RESPIRATIONS EVEN/UNLABORED, FALL PRECAUTIONS IN PLACE, FLUIDS/CALL LIGHT WITHIN REACH
[2020-03-15 22:14] LABS: CKMB 0.5 U/L (0.0-3.6); CREATINE KINASE 29 UL (21-215)
[2020-03-15 22:22] LABS: TROPONIN-I < 0.017 ng/mL (0.000-0.060)
--- NOTE | 2020-03-16 02:04 | NUR ---
PT IN BED ASLEEP,AROUSES EASILY TO VOICE NO NEEDS NOTED AT THIS TIME, RESPIRATIONS EVEN/UNLABORED, FALL PRECAUTIONS IN PLACE, FLUIDS/CALL LIGHT WITHIN REACH
--- NOTE | 2020-03-16 05:05 | NUR ---
PT IN BED ASLEEP,AROUSES EASILY TO VOICE NO NEEDS NOTED AT THIS TIME, RESPIRATIONS EVEN/UNLABORED, FALL PRECAUTIONS IN PLACE, FLUIDS/CALL LIGHT WITHIN REACH
--- NOTE | 2020-03-16 07:46 | NUR ---
SHE IS UP WITH PT THIS MORNING, GOING TO THE BATHROOM WITH THE WHEELCHAIR. PRN GIVEN FOR PAIN.
[2020-03-16 08:00] VITALS: BP 133/78
--- NOTE | 2020-03-16 10:07 | NUR ---
Nutrition Follow-up: Diet: Regular PO intake: 100% x most meals (~97% average x last 9 meals) Last BM: 03/13/20. Wt: 180# (03/10/20) Meds noted: ailyn, santiago, k-dur, HCTZ, lasix. Labs reviewed. Recommend continue current diet. RD following.
[2020-03-16 18:47] VITALS: BP 139/80
--- NOTE | 2020-03-16 19:32 | NUR ---
PT IN BED WATCHING TV, RESPIRATIONS EVEN/UNLABORED, NO IMMEDIATE NEEDS NOTED, FALL PRECAUTIONS IN PLACE, FLUIDS/CALL LIGHT WITHIN REACH
--- NOTE | 2020-03-17 02:44 | NUR ---
PT ASLEEP, AROUSES EASILY TO VOICE RESPIRATIONS EVEN/UNLABORED, NO IMMEDIATE NEEDS NOTED, FALL PRECAUTIONS IN PLACE, FLUIDS/CALL LIGHT WITHIN REACH
[2020-03-17 07:23] VITALS: BP 120/70
--- NOTE | 2020-03-17 08:02 | NUR ---
PT UP IN THERAPY GYM TOLERATING WELL EATING BREAKFAST WILL MONITER
--- NOTE | 2020-03-17 11:14 | NUR ---
I have reviewed this patient and I concur with the Shift Assessment completed by the Licensed Practical Nurse today this shift.
--- NOTE | 2020-03-17 14:06 | NUR ---
CARE TEAM MEETING: PATIENT IS DOING WELL IN THEREAPY AND WILL TENATIVELY DC HOME ON 03/19/20. WILL CONTINUE TO FOLLOW WITH PATIENT.
--- NOTE | 2020-03-17 17:58 | NUR ---
PT RESTING IN BED WITH EYES OPEN CALL LIGHT IN REACH WILL MONITER
--- NOTE | 2020-03-17 19:07 | NUR ---
PT IN BED WATCHING TV RESPIRATIONS EVEN/UNLABORED, NO IMMEDIATE NEEDS NOTED, FALL PRECAUTIONS IN PLACE, FLUIDS/CALL LIGHT WITHIN REACH
[2020-03-17 19:56] VITALS: BP 118/57
--- NOTE | 2020-03-17 23:08 | NUR ---
PT ASLEEP, AROUSES EASILY TO VOICE, RESPIRATIONS EVEN/UNLABORED, NO IMMEDIATE NEEDS NOTED, FALL PRECAUTIONS IN PLACE, FLUIDS/CALL LIGHT WITHIN REACH
--- NOTE | 2020-03-18 07:21 | NUR ---
PT RESTING IN BED WITH EYS OPEN CALL LIGHT IN REACH WILL MONITER
[2020-03-18 07:45] VITALS: BP 135/92
[2020-03-18] MEDS ORDERED: HYDROCODON-ACE1 EAC7 PO (08:44)
[2020-03-18] MEDS ORDERED: ULTRAM50 MG PO (08:44)
[2020-03-18] MEDS ORDERED: K-DUR20 MEQ PO (08:45)
--- NOTE | 2020-03-18 08:46 | RHP ---
PATIENT: SHERIDAN MIR MEDICAL RECORD: [id number] ACCOUNT: [id number] LOCATION:[facility] [id number] : 50 ADMISSION DATE: 03/09/20 REHABILITATION HISTORY AND PHYSICAL EXAMINATION POST ADMISSION PHYSICIAN EXAMINATION ADMITTING DIAGNOSIS: Acute L2 compression fracture. HISTORY OF PRESENT ILLNESS: The patient presented to the Emergency Room at [facility] complaining of severe back pain. She lives with her daughter and a 2-year-old granddaughter and she says she tripped over by his clothes on the floor and kind of landed on the door frame. The pain was severe, located in the middle part of her back. She could barely tolerate sitting on the toilet, cannot ambulate due to pain, got a history of asthma, anxiety, hypothyroidism, fibromyalgia, depression and osteoporosis. She was admitted with intractable back pain. X-ray showed an acute traumatic fracture of the L2 vertebra. She had IR which was consulted for possible kyphoplasty. On 03/08/2020, she had a successful kyphoplasty and biopsy of the L2 osteoporotic compression fracture. The patient states pain to her lower back was still pretty intense even postop. She was able to get to the side of her bed and ambulate a few steps to the bedside commode. PT was ordered. Previously, she was independent with ADLs and mobility. Currently, she is mod to max assist for ADLs and mobility. She is slow and has decreased crista when walking, decreased step length, decreased foot clearance. These are all barriers to her discharge home. She could easily fall. She has got fair to poor sitting and standing debility due to decreased lower extremity strength. She requires upper extremity support to avoid loss of balance and cannot lift or maneuver walker without assist. She would like to be able to return back home. COMORBIDITIES: Include anxiety, asthma, arthritis, chronic back pain, decreased mobility, decreased in physical functioning. PAST MEDICAL HISTORY: Significant for osteoporosis, anxiety, asthma, depression, hypertension, hypothyroidism, chronic back pain. PAST SURGICAL HISTORY: Includes appendectomy, cholecystectomy, hysterectomy, partial thyroidectomy. ALLERGIES: CODEINE, TORADOL, DILAUDID, IMITREX, FLU VACCINE, SULFA AND MORPHINE. CURRENT MEDICATIONS: Include vitamin D 5000 units daily. She is on Lopid 600 mg daily, hydrochlorothiazide 25 mg daily, furosemide 20 mg daily, levothyroxine 150 mcg daily, Protonix 40 mg daily, Colace 100 mg at bedtime, carvedilol 25 mg b.i.d. with meals. She is on Systane eyedrops. She is on Flexeril 10 mg t.i.d. p.r.n. and Tylenol 650 mg every 6 hours p.r.n. HABITS: No alcohol or tobacco use. FAMILY HISTORY: Noncontributory. SOCIAL HISTORY: The patient hopes to return back home and get back to her prior level of functioning. REVIEW OF SYSTEMS: HISTORY AND PHYSICAL [id number] SHERIDAN MIR GENERAL: Does complain of some weakness and fatigue. HEENT: Denies cold, cough, or congestion. CARDIOVASCULAR: Denies any chest pain. PHYSICAL EXAMINATION: VITAL SIGNS: Stable, afebrile. GENERAL: An elderly female, in no acute distress upon exam. HEENT: Normocephalic and atraumatic. Mucosa moist. NECK: Supple. No lymphadenopathy. LUNGS: Clear in upper [place]. HEART: Regular rate and rhythm. No murmurs, rubs or gallops. ABDOMEN: Soft, benign, and nondistended. Positive bowel sounds times 4. EXTREMITIES: No clubbing, cyanosis or edema. NEUROLOGIC: She really slowed a movement, mainly secondary to pain. LABORATORY DATA: Her white count is 3.0, H&H of 11.6 and 34.4 and platelet count is 261. Her sodium is 130, potassium is 3.0, BUN and creatinine of 24 and 0.9, and blood sugar is 102. ASSESSMENT: This is a 69-year-old female patient admitted to rehab with a working diagnosis of L2 compression fracture status post kyphoplasty. The patient has potential to make improvement. We instituted the following multidisciplinary therapies including, but not limited to physical, occupational, respiratory, speech, nutritional services, prosthetics and orthotics. Given her complex medical condition and risks for more complications, rehabilitation services cannot be provided at a low level of care such a penitentiary facility. PLAN: 1. Admit to [facility] for inpatient therapy to include the following disciplines; A. Physical therapy to improve gait, all transfer skills and bed mobility to a modified independent level. B. Occupational therapy to improve activities of daily living. C. Case management to help with discharge planning and placement options. D. Nutrition to assist with nutritional needs. E. Rehabilitation nursing to assist in monitoring the patient's underlying medical condition and to assist with any type of bowel or bladder management. 2. The patient's current medication and medical care will be continued. 3. Placed on standard fall precautions. 4. The patient's estimated length of stay is approximately 7-10 days. 5. We will go ahead and replace her potassium. We will continue to monitor pain control and see how she does and she is only on acetaminophen at this time. We will increase that if needed. I will discuss with care team and staff at noon today. TRANSINT:[id number] Voice Confirmation ID: [id number] DOCUMENT ID: [id number] CYNTHIA notes whether there has been none or any medical/functional change since admission: - No change since preadmission screen. CYNTHIA attests patient continues to be appropriate for IRF: HISTORY AND PHYSICAL [id number] SHERIDAN MIR - Continues to be appropriate. ISAAC LEROY MD at 0846 CC: [id number] DICTATION DATE: 03/10/20 09 BRIDGE RIGGER: 03/10/20 1258 ADM IN [facility] [address] [id number]
--- NOTE | 2020-03-18 18:22 | NUR ---
PT RESTING IN BED WITH EYES OPEN CALL LIGHT IN REACH NO PROBLEMS WILL MONITER
--- NOTE | 2020-03-18 19:14 | NUR ---
PT SITTING UP IN WHEELCHAIR AT BEDSIDE. CL IN REACH. PT ON CELL PHONE AND DENIES NEEDS AT THIS TIME. A/O X4. RESP EVEN AND UNLABORED. WILL CONTINUE TO MONITOR.
[2020-03-18 20:36] VITALS: BP 97/63
--- NOTE | 2020-03-19 01:13 | NUR ---
PT RESTING QUIETLY. CL IN REACH. NO DISTRESS NOTED. WCTM
--- NOTE | 2020-03-19 03:37 | NUR ---
I have reviewed this patient and I concur with the Shift Assessment completed by the Licensed Practical Nurse today this shift.
--- NOTE | 2020-03-19 07:27 | NUR ---
PT RESTING IN BED WITH EYES OPEN CALL LIGHT IN REACH WILL MONITER
[2020-03-19 07:56] VITALS: BP 120/72
[2020-03-19 08:36] LABS: HEMATOCRIT 33.4 % (36.0-48.0); HEMOGLOBIN 11.2 g/dL (12-16); MCH 30.5 pg (26.0-34.0); MCHC 33.5 g/dL (31.0-37.0); MEAN PLATELET VOLUME 9.3 fL (7.4-10.4); RBC 3.67 10x6/uL (4.00-5.40); RDW 13.1 % (11.5-14.5); WBC 2.3 10x3/uL (4.8-10.8)
[2020-03-19 08:48] LABS: ANION GAP 12.3 mmol/L (8-16); CALCIUM 9.6 mg/dL (8.5-10.1); CARBON DIOXIDE 28.3 mmol/L (21.0-32.0); CREATININE - SERUM 0.9 mg/dL (0.6-1.3); POTASSIUM - SERUM 3.6 mmol/L (3.5-5.1)
[2020-03-19 08:49] LABS: PLATELET COUNT 317 10x3/uL (130-400)
[2020-03-19 09:10] LABS: EOSINOPHILS 2 % (0-7); LYMPHOCYTES 26 % (15-50); MONOCYTES 1 % (2-11); NEUTROPHILS 69 % (40-80); PLATELET ESTIMATE NORMAL
--- NOTE | 2020-03-19 10:02 | NUR ---
PATIENT DISCHARGING HOME TODAY WITH FAMILY. [facility] WILL PROVIDE THERAPY AT HOME. GEORGETTE SIGNED, IMM SERVED AND EXPLAINED. ONE GIVEN TO PATIENT AND ONE FILED IN CHART. NO COMPARE DATA REVIEWED PATIENT HAS USED [facility] IN THE PAST. PATIENT INSTRUCTED NOT TO LIFT OVER 5 LBS [address]IL PHYSICIAN SAYS. DR. OLIVIER 03/25/20 @ 12:15. DISCHARGE INSTRUCTIONS FAXED TO PCP, HOME HEALTH AND REVIEWED WITH PATIENT PER [facility] NURSE AND MYSELF.
--- NOTE | 2020-03-19 17:02 | NUR ---
PT DISCHARGED TO HOME VIA WHEELCHAIR WITH [facility]. MEDS CALLED TO PHARMACY. DISCHARGE MEDS AND DISCHARGE SUMMARY REVIEWED WITH PT NO QUESTIONS AND CONCERNS.
== END 2020-03-19 17:04 | disposition home health service (06) | DRG 561 ==
LOC: D.REHAB 18:36
PROVIDERS: ADMIT Emergency Medicine; ATTEND Emergency Medicine
DX: S32.029D Unspecified fracture of second lumbar vertebra, subsequent encounter for fracture with routine healing (principal); F41.9 Anxiety disorder, unspecified; J45.909 Unspecified asthma, uncomplicated; M19.90 Unspecified osteoarthritis, unspecified site; F41.8 Other specified anxiety disorders; I10 Essential (primary) hypertension; E03.9 Hypothyroidism, unspecified; G89.29 Other chronic pain